=== PATIENT | male | born 1970 | race Caucasian/White ===

== ENCOUNTER 2016-10-31 08:47 | Observation (INO) | payer MEDICAID ==
[~2016-10-31] VITALS: Ht 172.7 cm; Wt 100.3 kg
[~2016-10-31 08:47] MED LIST: COLC0.6T53; HYDR-2890 PO; HYDROCODONE; INDO50CA; METF500T8 PO
[2016-10-31 08:50] VITALS: BP 147/108
--- OUTSIDE RECORDS SUMMARY | 2016-10-31 08:54 | XMS REPORT ---
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
--- NOTE | 2016-10-31 09:14 | ED Neurological Problem ---
General Chief Complaint: Neuro-Stroke Like Symptoms Stated Complaint: LEFT SIDE FACIAL NUMBNESS/DROOPING Nursing Triage Note: At 0300, noticed left facial weakness with nausea. Approx 0500 noticed facial drooping. Reports generalized weakness last 2 days. Nursing Sepsis Screen: No Definite Risk Source: patient Exam Limitations: no limitations History of Present Illness Time seen by provider: 08:55 Initial Comments Here with report of left facial weakness that he noticed at about 3 a.m. Last known well time was going to bed last night. States that the weakness was worse and noted increased drooping at 5 a.m. Also reports generalized malaise and not feeling well for the last 2-3 days. Patient is a diabetic. He did go to work this morning. Believes that he is having some weakness on his left side overall as well. Gait was steady without foot drop. Denies dysuria or diarrhea. Is reporting some upper respiratory congestion and nasal congestion. Timing/Duration: increasing, other (12 hours) Severity: moderate Associated Symptoms: No confusion, fatigueNo fever/chills, No nausea/vomiting , paresthesiaNo slurred speech, No trouble walking, weakness Allergies and Home Medications Allergies Coded Allergies: No Known Allergies (Unverified Allergy, Mild, 12/12/09) Home Medications (Reported) Colchicine 0.6 Mg Tablet (Reported) Hydrocodone Bit/Acetaminophen 1 Each Tablet #30 1 EACH PO Q4H Prescribed by: KYLEIGH PAINTING on 12/28/12 1550 Indomethacin 50 Mg Capsule (Reported) Metformin Hcl 500 Mg Tab.sr.24h 1 EACH PO BID WITH MEALS (Reported) Constitutional: see HPINo chills, No fever Eyes: No Symptoms Reported Ears, Nose, Mouth, Throat: see HPI nose discharge Respiratory: no symptoms reportedNo cough, No short of breath Cardiovascular: No chest pain, No palpitations Gastrointestinal: no symptoms reportedNo nausea, No vomiting Genitourinary: no symptoms reported Musculoskeletal: see HPI muscle weakness Skin: no symptoms reported Psychiatric/Neurological: See HPIDenies Headache, Numbness Weakness Endocrine: No Symptoms Reported All Other Systems Reviewed Negative Unless Noted: Yes Past Rdqhshi-Qbjrsv-Vwkcnr Hx Patient Social History Alcohol Use: Rarely Uses Recreational Drug Use: No Smoking Status: Never a Smoker Recent Foreign Travel: No Contact w/Someone Who Travel: No Recent Infectious Disease Expo: No Recent Hopitalizations: No Physical Abuse Screen: No Sexual Abuse: No Immunizations Up To Date Date of Influenza Vaccine: Jul 08, 2012 Surgeries HX Surgeries: Yes (club foot) Respiratory Hx Respiratory Disorders: No Cardiovascular Hx Cardiac Disorders: No Neurological Hx Neurological Disorders: No Genitourinary Hx Genitourinary Disorders: No Gastrointestinal Hx Gastrointestinal Disorders: No Musculoskeletal Hx Musculoskeletal Disorders: Yes Musculoskeletal Disorders: Gout Endocrine Hx Endocrine Disorders: Yes Endocrine Disorders: Diabetes, Non-Insulin dep Cancer Hx Cancer: No Psychosocial Hx Psychiatric Problems: Yes Behavioral Health Disorders: Depression Reviewed Nursing Assessment Reviewed/Agree w Nursing PMH: Yes Family Medical History Significant Family History: No Pertinent Family Hx Physical Exam Vital Signs Vital Sign - Last 12Hours 10/31/16 08:47 Pulse 86 Resp 16 B/P 147/108 Pulse Ox 98 Capillary Refill : Less Than 3 Seconds General Appearance: WD/WN no apparent distress Neck: full range of motion supple Respiratory: lungs clear normal breath sounds Cardiovascular: regular rate, rhythm no murmur Gastrointestinal: non tender soft Back: normal inspection no CVA tenderness no vertebral tenderness Extremities: normal range of motion non-tender normal inspection Neurologic/Psychiatric: alertNo abnormal gait, facial droop motor weakness ( left facial droop with forehead involvement) Crainal Nerves: PERRL facial asymmetry facial droop facial paresthesias facial weaknessNo tongue deviation to R, No tongue deviation to L Coordination/Gait: normal finger to nose normal gait Motor/Sensory: no pronator driftNo weak motor strength RUE, No weak motor strength LUE, No weak motor strength RLE, No weak motor strength LLE Skin: normal color warm/dry Stroke NIH Stroke Scale Assessment Level of Consciousness: 0=Alert Level of Consciousness-Questio: 0=Answers both month/age LOC Commands: 0=Performs both tasks Gaze: 0=Normal Visual You: 0=No visual loss Facial Movement (Facial Paresi: 1=Minor paralysis Motor Function-Arms Right: 0=No drift Motor Function-Arms Left: 0=No drift Motor Function-Legs Right: 0=No drift Motor Function-Legs Left: 0=No drift Limb Ataxia: 0=Absent Sensory: 1=Mild to Moderate loss Best Language: 0=No aphasia Extinction & Inattention: 0=No abnormality Progress/Results/Core Measures Results/Orders Lab Results Laboratory Tests Test 10/31/16 09:15 10/31/16 11:25 Range/Units Activated Partial Thromboplast Time 26 24-35 SEC Alanine Aminotransferase (ALT/SGPT) 32 0-55 U/L Albumin 3.8 3.2-4.5 G/DL Alkaline Phosphatase 83 40-136 U/L Anion Gap 11 5-14 MMOL/L Aspartate Amino Transf (AST/SGOT) 24 5-34 U/L BUN/Creatinine Ratio 15 Basophils # (Auto) 0.0 0.0-0.1 10^3/uL Basophils (%) (Auto) 0 0-10 % Blood Urea Nitrogen 18 7-18 MG/DL Calcium Level 9.3 8.5-10.1 MG/DL Carbon Dioxide Level 22 21-32 MMOL/L Chloride Level 101 98-107 MMOL/L Creatinine 1.23 0.60-1.30 MG/DL D-Dimer 0.45 0.00-0.49 UG/ML Eosinophils # (Auto) 0.1 0.0-0.3 10^3/uL Eosinophils (%) (Auto) 1 0-10 % Estimat Glomerular Filtration Rate > 60 Glucose Level 301 H 70-105 MG/DL Hematocrit 48 40-54 % Hemoglobin 16.6 13.3-17.7 G/DL INR Comment 0.9 0.8-1.4 Lymphocytes # (Auto) 1.9 1.0-4.0 X 10^3 Lymphocytes (%) (Auto) 20 12-44 % Mean Corpuscular Hemoglobin 30 25-34 PG Mean Corpuscular Hemoglobin Concent 35 32-36 G/DL Mean Corpuscular Volume 85 80-99 FL Mean Platelet Volume 9.9 7.4-10.4 FL Monocytes # (Auto) 0.4 0.0-1.0 X 10^3 Monocytes (%) (Auto) 5 0-12 % Neutrophils # (Auto) 6.9 1.8-7.8 X 10^3 Neutrophils (%) (Auto) 74 42-75 % Platelet Count 232 130-400 10^3/uL Potassium Level 4.5 3.6-5.0 MMOL/L Prothrombin Time 11.7 L 12.2-14.7 SEC Red Blood Count 5.56 4.35-5.85 10^6/uL Red Cell Distribution Width 13.8 10.0-14.5 % Sodium Level 134 L 135-145 MMOL/L Total Bilirubin 0.3 0.1-1.0 MG/DL Total Protein 7.0 6.4-8.2 G/DL Troponin I < 0.30 <0.30 NG/ML White Blood Count 9.3 4.3-11.0 10^3/uL Urine Bacteria NEGATIVE /HPF Urine Bilirubin NEGATIVE NEGATIVE Urine Casts NONE /LPF Urine Clarity CLEAR Urine Color YELLOW Urine Crystals NONE /LPF Urine Culture Indicated NO Urine Glucose (UA) 3+ H NEGATIVE Urine Ketones NEGATIVE NEGATIVE Urine Leukocyte Esterase NEGATIVE NEGATIVE Urine Mucus NEGATIVE /LPF Urine Nitrite NEGATIVE NEGATIVE Urine Protein 2+ H NEGATIVE Urine RBC NONE /HPF Urine RBC (Auto) NEGATIVE NEGATIVE Urine Specific Amelia 1.010 L 1.016-1.022 Urine Squamous Epithelial Cells RARE /HPF Urine Urobilinogen NORMAL NORMAL MG/DL Urine WBC NONE /HPF Urine pH 6 5-9 My Orders Orders-LM HARPER MD Cbc With Automated Diff (10/31/16 09:02) Protime With Inr (10/31/16 09:02) Partial Thromboplastin Time (10/31/16 09:02) Comprehensive Metabolic Panel (10/31/16 09:02) Fibrin Degradation Products (10/31/16 09:02) Troponin I (10/31/16 09:02) Ua Culture If Indicated (10/31/16 09:02) Chest 1 View, Ap/Pa Only (10/31/16 09:02) Ekg Tracing (10/31/16 09:02) Nothing By Mouth (10/31/16 Lunch) Accucheck Stat ONCE (10/31/16 09:02) Saline Lock/Iv-Start (10/31/16 09:02) Vital Signs-Stroke Q1H (10/31/16 09:02) Ct Head Wo-R/O Stroke (10/31/16 09:02) O2 (10/31/16 09:02) Intake & Output 06,14,22 (10/31/16 09:02) Monitor-Rhythm Ecg Trace Only (10/31/16 09:02) Dysphagia Screening Tool (10/31/16 09:02) Saline Lock/Iv-Start (10/31/16 11:55) Ns Iv 1000 Ml (Sodium Chloride 0.9%) (10/31/16 11:55) Vital Signs/I&O Vital Sign - Last 12Hours 10/31/16 08:47 Pulse 86 Resp 16 B/P 147/108 Pulse Ox 98 Blood Pressure Mean: 121 Progress Note : Progress Note Seen and evaluated. Stroke scale positive for facial droop and paresthesias on the left face total score of 2. Otherwise negative. IV, labs, CT head and UA ordered. Monitor patient. 1150: Facial droop on left side has resolved. Patient is complaining of some moving symptoms including some right arm numbness now. Repeat stroke scale is 0 by me. There is no facial droop or forehead droop. I did discuss the case with Dr. Soares at 1150. She will except patient for admission, observation status. We will get MRI and ultrasound of the carotids for further evaluation due to what appears to be TIA now. This was discussed with patient who agrees with plan. ECG Initial ECG Impression Date: Oct 31, 2016 Initial ECG Impression Time: 09:59 Initial ECG Rate: 72 Initial ECG Rhythm: Normal Sinus Initial ECG Impression: Normal Initial ECG Comparisson: No Previous ECG Available Comment Sinus rhythm with normal axis. No evidence of ST elevation TX. No previous available for comparison. Interpreted by me. Diagnostic Imaging Diagonstic Imaging: CT Plain Films/CT/US/NM/MRI: head Comments VIA [facility] [place] NAME: SAI FINCH [facility] REC#: [id number] PT STATUS: REG ER : 1970 PHYSICIAN: LM HARPER MD ADMIT DATE: 10/31/16/ER Draft Date of Exam:10/31/16 CT HEAD WO-R/O STROKE CT head without contrast. INDICATION: CVA. TECHNIQUE: Contiguous axial sections were taken through the skull. There are no prior studies available for comparison. FINDINGS: There is no mass, shift of midline or hemorrhage to suggest an acute intracranial abnormality. There is no sign of an asymmetric hyperdense vessel either. The ventricles are not abnormally dilated. The bone windows show no evidence for fracture or for destructive lesion. The orbits and sinuses were not visualized in their entirety but where visualized there is no acute abnormality. IMPRESSION: 1. There is no evidence for an acute intracranial abnormality. 2. If clinical concern regarding an underlying abnormality persists, then MRI would be recommended for further study. 3. These results were discussed with Dr. Harper in the ER. Dictated on workstation # [id number] Dict: 10/31/16 0941 Trans: 10/31/16 1005 [id number] Interpreted by: LEROY ANDREA MD Electronically signed by: Robert Imaging: Xray Plain Films/CT/US/NM/MRI: chest Comments VIA [facility] [place] NAME: SAI FINCH [facility] REC#: [id number] PT STATUS: REG ER : 1970 PHYSICIAN: LM HARPER MD ADMIT DATE: 10/31/16/ER Draft Date of Exam:10/31/16 CHEST 1 VIEW, AP/PA ONLY EXAMINATION: PA chest at 9:46 AM INDICATION: Weakness There are no prior chest exams available for comparison. The heart size is within normal limits. The lungs are clear. There is no sign of failure, pneumonia or a pleural effusion. There are small areas of increased density overlying each upper lung. I suspect that these are secondary to bony overgrowth as they appear similar to the thoracic spine exam of 04/03/08. The mediastinum is not widened. The osseous structures are intact. IMPRESSION: There is no evidence for an acute cardiopulmonary abnormality. Dictated on workstation # [id number] Dict: 10/31/16 1009 Trans: 10/31/16 1019 [place] [id number] Interpreted by: LEROY ANDREA MD Electronically signed by: Departure Communication Time/Spoke to Admitting Phy: 11:50 Impression Impression: Primary Impression: Transient cerebral ischemia Qualified Code: G45.9 - Transient cerebral ischemic attack, unspecified Disposition: ADMITTED INPATIENT Condition: Stable Decision to Admit Reason: Admit from ER (General) Decision to Admit/Date: Oct 31, 2016 Time/Decision to Admit Time: 11:50 Departure-Patient Inst. Referrals: [facility] (PCP/Family) Primary Care Physician LM HARPER MD Oct 31, 2016 09:14
[2016-10-31 09:23] LABS: BASOPHILS % (AUTO) 0 % (0-10); EOSINOPHILS # (AUTO) 0.1 10^3/uL (0.0-0.3); EOSINOPHILS % (AUTO) 1 % (0-10); LYMPHOCYTES # (AUTO) 1.9 X 10^3 (1.0-4.0); LYMPHOCYTES % (AUTO) 20 % (12-44); MEAN CORPUSCULAR HEMOGLOBIN 30 PG (25-34); MEAN CORPUSCULAR HGB CONC 35 G/DL (32-36); MEAN CORPUSCULAR VOLUME 85 FL (80-99); MEAN PLATELET VOLUME 9.9 FL (7.4-10.4); MONOCYTES # (AUTO) 0.4 X 10^3 (0.0-1.0); MONOCYTES % (AUTO) 5 % (0-12); NEUTROPHILS # (AUTO) 6.9 X 10^3 (1.8-7.8); NEUTROPHILS % (AUTO) 74 % (42-75); PLATELET COUNT 232 10^3/uL (130-400); RED BLOOD COUNT 5.56 10^6/uL (4.35-5.85); RED CELL DISTRIBUTION WIDTH 13.8 % (10.0-14.5); WHITE BLOOD COUNT 9.3 10^3/uL (4.3-11.0)
[2016-10-31 09:37] LABS: INR 0.9 (0.8-1.4); PROTHROMBIN TIME PATIENT 11.7 SEC (12.2-14.7)
--- NOTE | 2016-10-31 10:05 | Diagnostic Imaging Report ---
CT head without contrast. INDICATION: CVA. TECHNIQUE: Contiguous axial sections were taken through the skull. There are no prior studies available for comparison. FINDINGS: There is no mass, shift of midline or hemorrhage to suggest an acute intracranial abnormality. There is no sign of an asymmetric hyperdense vessel either. The ventricles are not abnormally dilated. The bone windows show no evidence for fracture or for destructive lesion. The orbits and sinuses were not visualized in their entirety but where visualized there is no acute abnormality. IMPRESSION: 1. There is no evidence for an acute intracranial abnormality. 2. If clinical concern regarding an underlying abnormality persists, then MRI would be recommended for further study. 3. These results were discussed with Dr. Lugo in the ER. Dictated by: Dictated on workstation # [id number]
[2016-10-31 10:06] LABS: ALANINE AMINOTRANSFERASE 32 U/L (0-55); ALBUMIN 3.8 G/DL (3.2-4.5); ANION GAP 11 MMOL/L (5-14); ASPARTATE AMINO TRANSFERASE 24 U/L (5-34); BILIRUBIN,TOTAL 0.3 MG/DL (0.1-1.0); BLOOD UREA NITROGEN 18 MG/DL (7-18); BUN/CREATININE RATIO 15; CALCIUM 9.3 MG/DL (8.5-10.1); CARBON DIOXIDE 22 MMOL/L (21-32); CHLORIDE 101 MMOL/L (98-107); CREATININE SERUM 1.23 MG/DL (0.60-1.30); GFR ESTIMATED > 60; GLUCOSE 301 MG/DL (70-105); POTASSIUM 4.5 MMOL/L (3.6-5.0); SODIUM 134 MMOL/L (135-145)
[2016-10-31 10:16] LABS: TROPONIN I < 0.30 NG/ML (<0.30)
--- NOTE | 2016-10-31 10:20 | Diagnostic Imaging Report ---
EXAMINATION: PA chest at 9:46 AM INDICATION: Weakness There are no prior chest exams available for comparison. The heart size is within normal limits. The lungs are clear. There is no sign of failure, pneumonia or a pleural effusion. There are small areas of increased density overlying each upper lung. I suspect that these are secondary to bony overgrowth as they appear similar to the thoracic spine exam of 04/03/08. The mediastinum is not widened. The osseous structures are intact. IMPRESSION: There is no evidence for an acute cardiopulmonary abnormality. Dictated by: Dictated on workstation # [id number]
[2016-10-31 11:40] LABS: BILIRUBIN,URINE NEGATIVE (NEGATIVE); KETONES,URINE NEGATIVE (NEGATIVE); LEUKOCYTE ESTERASE ,URINE NEGATIVE (NEGATIVE); NITRITE,URINE NEGATIVE (NEGATIVE); PH,URINE 6 (5-9); PROTEIN,URINE 2+ (NEGATIVE); UROBILINOGEN,URINE NORMAL (NORMAL)
[2016-10-31 11:50] LABS: SQUAMOUS EPITHELIAL CELL,UR RARE /HPF
[2016-10-31] MEDS ORDERED: NS IV 1000 ML 1,000 ML IV ONE (11:55)
[2016-10-31] MEDS ORDERED: ACETAMINOPHEN 325 MG TABLET/CAPLET (TYLENOL) PO STA (12:00)
[2016-10-31] MEDS ORDERED: ASPIRIN 325 MG (5 GR) TABLET PO ONE (12:30)
[2016-10-31 13:15] VITALS: BP 165/84
[2016-10-31] MEDS: NS IV 1000 ML 1,000 ML IV SCH ×2 (13:45→18:03)
[2016-10-31] MEDS ORDERED: CATHETER FLUSH 10 ML SYR IV PRN (13:45)
--- NOTE | 2016-10-31 14:47 | Diagnostic Imaging Report ---
PROCEDURE: US Carotid Duplex Bilateral. TECHNIQUE: Multiple real-time grayscale images were obtained over the carotid arteries in various projections bilaterally. Additional duplex Doppler and color Doppler images were also obtained. INDICATION: TIA. FINDINGS: Real-time imaging shows no evidence of atherosclerotic plaquing. There is no evidence of carotid dissection with normal Doppler sampling. Waveforms and peak velocities are normal. Carotid ratios are normal. Both vertebral arteries show antegrade flow. IMPRESSION: Normal bilateral carotid and vertebral Doppler ultrasound. Dictated by: Dictated on workstation # [id number]
[2016-10-31] MEDS ORDERED: INDO50CA PO (14:49)
[2016-10-31] MEDS ORDERED: INSU100I29 SC (14:49)
[2016-10-31] MEDS ORDERED: HYDR-3812 PO (14:49)
[2016-10-31] MEDS ORDERED: TERB15CR6 TOP (14:49)
[2016-10-31] MEDS ORDERED: GABA-486 PO (14:49)
[2016-10-31] MEDS ORDERED: LORA0.5T PO (14:49)
[2016-10-31] MEDS ORDERED: ALLO100T PO (14:49)
[2016-10-31 16:37] VITALS: BP 113/72
[2016-10-31] MEDS ORDERED: GADOBUTROL 10 MMOL/10 ML (GADAVIST) VIAL IV ONE (17:30)
[2016-10-31] MEDS: inSUlin (REGULAR) HUMAN 1 UNIT/0.01 ML (CHARGE PER UNIT) SC SCH ×2 (18:03→20:39)
--- NOTE | 2016-10-31 18:13 | Diagnostic Imaging Report ---
PROCEDURE: MR imaging of the brain with and without contrast. TECHNIQUE: Multiplanar, multisequence MR imaging of the brain was performed with and without contrast. INDICATION: TIA. COMPARISON: CT of the head from the same date. FINDINGS: No evidence for restricted diffusion to suggest recent infarction. No intracranial hemorrhage. The right vertebral artery likely terminates in PICA. Otherwise, vascular flow-voids at the skull base were unremarkable. The orbits are unremarkable. The paranasal sinuses are clear. No abnormal signal identified within the brain parenchyma. No intracranial mass, mass effect, midline shift, herniation, hydrocephalus, or extra-axial fluid collection. No suspicious dural enhancement. The calvarium and extracalvarial soft tissues are unremarkable. IMPRESSION: Unremarkable examination. No acute intracranial abnormality identified. Dictated by: Dictated on workstation # [id number]
[2016-10-31 20:48] VITALS: BP 135/88
[2016-11-01] VITALS: BP 134/84
[2016-11-01 04:00] VITALS: BP 100/59
[2016-11-01 04:40] LABS: BASOPHILS % (AUTO) 0 % (0-10); EOSINOPHILS # (AUTO) 0.2 10^3/uL (0.0-0.3); EOSINOPHILS % (AUTO) 2 % (0-10); LYMPHOCYTES # (AUTO) 3.2 X 10^3 (1.0-4.0); LYMPHOCYTES % (AUTO) 34 % (12-44); MEAN CORPUSCULAR HEMOGLOBIN 30 PG (25-34); MEAN CORPUSCULAR HGB CONC 34 G/DL (32-36); MEAN CORPUSCULAR VOLUME 86 FL (80-99); MEAN PLATELET VOLUME 9.8 FL (7.4-10.4); MONOCYTES # (AUTO) 0.6 X 10^3 (0.0-1.0); MONOCYTES % (AUTO) 6 % (0-12); NEUTROPHILS # (AUTO) 5.5 X 10^3 (1.8-7.8); NEUTROPHILS % (AUTO) 58 % (42-75); PLATELET COUNT 239 10^3/uL (130-400); RED BLOOD COUNT 5.48 10^6/uL (4.35-5.85); WHITE BLOOD COUNT 9.5 10^3/uL (4.3-11.0)
[2016-11-01 04:59] LABS: ALANINE AMINOTRANSFERASE 27 U/L (0-55); ALBUMIN 3.5 G/DL (3.2-4.5); ANION GAP 8 MMOL/L (5-14); ASPARTATE AMINO TRANSFERASE 19 U/L (5-34); BILIRUBIN,TOTAL 0.5 MG/DL (0.1-1.0); BLOOD UREA NITROGEN 16 MG/DL (7-18); BUN/CREATININE RATIO 15; CALCIUM 8.9 MG/DL (8.5-10.1); CARBON DIOXIDE 22 MMOL/L (21-32); CHLORIDE 108 MMOL/L (98-107); CREATININE SERUM 1.06 MG/DL (0.60-1.30); GFR ESTIMATED > 60; GLUCOSE 125 MG/DL (70-105); POTASSIUM 4.5 MMOL/L (3.6-5.0); SODIUM 138 MMOL/L (135-145); TOTAL PROTEIN 6.2 G/DL (6.4-8.2)
[2016-11-01] MEDS: inSUlin (REGULAR) HUMAN 1 UNIT/0.01 ML (CHARGE PER UNIT) SC SCH ×2 (05:14→09:48)
[2016-11-01 08:00] VITALS: BP 117/64
[2016-11-01] MEDS: NS IV 1000 ML 1,000 ML IV SCH (08:34)
[2016-11-01] MEDS ORDERED: INSU100V16 SQ (12:44)
[2016-11-01] MEDS ORDERED: ASPI-999 PO (12:44)
[2016-11-01 12:45] VITALS: BP 121/62
--- NOTE | 2016-11-01 12:46 | Discharge Instructions ---
Discharge [facility] Discharge Medications New, Converted or Re-Newed RX: Transmitted to Pharmacy ([facility]; can get Aspirin over the counter) New Medications: Aspirin (Aspirin) 81 Mg Tab.chew 81 MG PO DAILY #30 Ref 0 TAB Insulin Aspart (Novolog) 100 Unit/1 Ml Susp 10 UNIT SQ TIDWM #1 Ref 0 ML Continued Medications: Allopurinol (Allopurinol) 100 Mg Tablet 100 MG PO TID TAB Gabapentin (Gabapentin) 100 Mg Capsule 100 MG PO TID LAST FILLED #90 09-01-16 CAP Hydrocodone/Acetaminophen (Hydrocodon -Acetaminophen 5-325) 1 Each Tablet 1 TAB PO Q6H PRN GOUT PAIN TAB Indomethacin (Indomethacin) 50 Mg Capsule 50 MG PO TID PRN GOUT PAIN TAB Insulin Detemir (Levemir Flextouch) 100 Unit/1 Ml Insuln.pen 45 UNITS SC BID EA Lorazepam (Lorazepam) 0.5 Mg Tablet 0.5 MG PO BID PRN ANXIETY TAB Terbinafine HCl (Terbinafine) 15 Gm Cream..g. TOP BID PRN RASH EA Patient Instructions Goal/Follow Up Appt: Keep scheduled appointment with Conner Bejarano APRN on 11/13/16 Patient Instructions: Start Novolog insulin 10 units with meals; check blood sugars fasting and 2 hours after meals. May get Aspirin 81mg daily over the counter Activity & Diet Discharge Diet: ADA Diet Orders-Post D/C & Referrals Pneu Vac Indicated: Yes DOROTA STEWART DO Nov 01, 2016 12:46
--- NOTE | 2016-11-01 12:48 | Short Stay Summary ---
HPI History of Present Illness: Pt presented to ER with L facial drooping, including the forehead. Symptoms resolved completely while in the ER. Pt was admitted for observation due to the rapid resolution of symptoms which was not typical for Angelo's Palsy. 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 States he has had recurrence of facial drooping especially with fatigue and stress which pt admits to having more of recently. Denies any symptoms currently. Source: patient Exam Limitations: no limitations Attending Physician Dorota Stewart DO PCP Ankit,[facility] Date of Admission Oct 31, 2016 at 12:08 Home Medications Home Medications Reviewed patient Home Medication Reconciliation Form Allergies Coded Allergies: NKANo Known Allergies (Verified Allergy, Mild, 10/31/16) BIK-Wamgcn-Zwsnyy Hx Patient Social History Alcohol Use: Denies Use Recreational Drug Use: No Smoking Status: Former Smoker Type Used: Cigarettes Recent Foreign Travel: No Contact w/other who traveled: No Recent Hopitalizations: No Recent Infectious Disease Expo: No Physical Abuse Screen: No Sexual Abuse: No Immunizations Up To Date Date of Influenza Vaccine: Jul 05, 2016 Family Medical History Significant Family History: No Pertinent Family Hx Family History: Diabetes mellitus grandfather Hypertension 19 FATHER Review of Systems ([facility]) Constitutional: see HPI Physical Exam-([facility]) Physical Exam Vital Signs VS - Last 72 Hours, by Label 10/31/16 10/31/16 10/31/16 10/31/16 08:47 08:50 12:51 13:15 Temp 97.5 98.7 Pulse 86 86 82 72 Resp 16 16 16 16 B/P 147/108 147/108 165/84 Pulse Ox 98 98 98 96 O2 Delivery Room Air 10/31/16 10/31/16 11/01/16 11/01/16 16:37 20:48 00:00 04:00 Temp 97.6 97.8 96.4 95.9 Pulse 71 78 83 62 Resp 18 18 17 18 B/P 113/72 135/88 134/84 100/59 Pulse Ox 95 95 97 100 O2 Delivery Room Air Room Air Room Air Room Air 11/01/16 11/01/16 08:00 09:00 Temp 98.3 Pulse 91 Resp 20 B/P 117/64 Pulse Ox 97 96 O2 Delivery Room Air Room Air Capillary Refill : Less Than 3 Seconds General Appearance: WD/WN no apparent distress HEENT: PERRL/EOMI Neck: full range of motion Respiratory: lungs clear normal breath sounds no respiratory distress Cardiovascular: regular rate, rhythm Neurologic/Psychiatric: economic analysis director II-XII nml as tested no motor/sensory deficits alert normal mood/affect oriented x 3 facial droop (mild droop at rest; full active motion) Skin: normal color warm/dry Short Stay Diagnosis Discharge Diagnosis-Short Stay Admission Diagnosis 1. Facial droop consistent with Angelo's Palsy Final Discharge Diagnosis 1. Facial droop consistent with Angelo's Palsy -resolved in the ER -likely recurrence of prior Angelo's Palsy secondary to stress - normal CT and MRI brain; normal carotid doppler - will f/u with PCP Conclusion Plan see above Clinical Quality Measures DVT/VTE Risk/Contraindication: Risk Factor Score Per Nursin RFS Level Per Nursing on Admit: 1=Low/No VTE PPX Stroke: Date of last known well: Oct 31, 2016 DOROTA STEWART DO Nov 01, 2016 12:48
[2016-11-01 14:21] VITALS: BP 121/62
== END 2016-11-01 12:44 | disposition home or self-care (01) ==
LOC: EDUNIT# 08:47 → ER 08:49 → 4TH 12:08 → UNDOADMOB 12:08 → 4TH 13:15 → UNDODISOB 11-01 14:26
PROVIDERS: ADMIT Family Medicine; ATTEND Family Medicine
DX: G45.9 Transient cerebral ischemic attack, unspecified (principal); E11.9 Type 2 diabetes mellitus without complications; Z79.84 Long term (current) use of oral hypoglycemic drugs
CPT/HCPCS: 36415; 70450; 70553; 71010; 80053; 81000; 82962; 84484; 85025; 85379; 85610; 85730; 93005; 93041; 93880; 96360; G0378

== ENCOUNTER 2018-08-12 11:18 | Emergency (ER) | payer OTHER, MEDICAID ==
[~2018-08-12] VITALS: Ht 172.7 cm; Wt 102.1 kg
[~2018-08-12 11:18] MED LIST changes: +ACHD5005 PO; +ALLO100T PO; +ASPI-999 PO; +GABA-486 PO; +INDO50CA11 PO; +INSU100I29 SC; +INSU100V16 SQ; +LORA0.5T PO; +TERB15CR6 TOP
--- OUTSIDE RECORDS SUMMARY | 2018-08-12 11:24 | XMS REPORT ---
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 Name Role Phone SUNNY YODER Unavailable Unavailable PROBLEMS Type Condition ICD9-CM Code ZDB21-QP Code Onset Dates Condition Status SNOMED Code Problem Hypertension, benign I10 Active 11848725 Problem Type 2 diabetes mellitus with hyperglycemia E11.65 Active 698986035804076 Problem Diabetes type 2, uncontrolled E11.65 Active 277563960 Problem Primary insomnia F51.01 Active 358281684 Problem Mood disorder F39 Active 73098077 Problem Diabetes type 2, controlled E11.9 Active 92044157 Problem Chronic fatigue R53.82 Active 52410994 Problem Primary osteoarthritis involving multiple joints M15.0 Active 724520771 Problem assisted current use of insulin Z79.4 Active 951296235 Problem Type 2 diabetes mellitus with diabetic polyneuropathy E11.42 Active 20446391 Problem 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 Active 329902257 Problem Type 2 diabetes mellitus without complications E11.9 Active 153438504 ALLERGIES Substance Reaction Event Type Date Status MetFORMIN HCl ER diarrhea Drug Allergy Jun, Active GlipiZIDE low blood sugar Drug Allergy Jun, Active ENCOUNTERS Encounter Location Date Diagnosis [facility] [id number] [place] [address]97 -6121 Jun, Cough R05 ; Diarrhea, unspecified type R19.7 and Congestion of respiratory tract J98.8 [facility] [id number] [place] [address] 57523- 3420 May, Type 2 diabetes mellitus with diabetic polyneuropathy E11.42 [facility] [id number] [place] [address] 39883- 7137 May, Type 2 diabetes mellitus with diabetic polyneuropathy E11.42 and Chronic fatigue R53.82 [facility] [id number] [address] February, [facility] [address], [place] [address] 0065 Jan, [facility] [id number] [place] [address] 85527- 2429 Nov, Controlled type 2 diabetes mellitus without complication, without long-term current use of insulin E11.9 [facility] [address] [address] 8927 Nov, [facility] [id number] [place] [address] 30904- 7372 Oct, [facility] [id number] [place] [address] 79659- 8665 Oct, Type 2 diabetes mellitus with diabetic polyneuropathy E11.42 and Primary osteoarthritis involving multiple joints M15.0 [facility] [id number] [place] [address] 15450- 3136 Oct, Type 2 diabetes mellitus with diabetic polyneuropathy E11.42 ; Primary osteoarthritis involving multiple joints M15.0 and Viral upper respiratory tract infection J06.9 [facility] [address] [address] 2[address] Sep, Diabetes type 2, controlled E11.9 [facility] [address], [place] [address] 1208 Jun, Uncontrolled diabetes mellitus type 2 without complications , 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 [facility] [address] [address] 6[address] Jun, Bronchitis J40 [facility] [id number] [place] [address] 71937- 9111 May, Controlled type 2 diabetes mellitus without complication, without long-term current use of insulin E11.9 [facility] [address] [address] 48[address] 24 Anatoliy, 2017 Type 2 diabetes mellitus without complications E11.9 [facility] [address] [address] 3337 Apr, [facility] [id number] [place] [address] 95029- 7756 Jan, Controlled type 2 diabetes mellitus without complication, without long-term current use of insulin E11.9 [facility] [id number] [place] [address] 99453- 5179 Dec, Diabetes type 2, controlled E11.9 and Type 2 diabetes mellitus with diabetic polyneuropathy E11.42 [facility] [id number] [place] [address] 34690- 2879 Nov, Diabetes type 2, controlled E11.9 and 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 [facility] [id number] [place] [address] 30218- 8401 Oct, [facility] [id number] [place] [address] 16733- 4431 Oct, Diabetes type 2, controlled E11.9 [facility] [id number] [place] [address] 96710- 7690 Sep, Diabetes type 2, controlled E11.9 [facility] [address], [place] [address] Aug, Bronchitis J40 [facility] [id number] [place] [address] 03526- 5333 Aug, [facility] [id number] [place] [address] 86996- 0790 Jul, Upper respiratory tract infection, unspecified type J06.9 ; Type 2 diabetes mellitus without complications E11.9 and assisted current use of insulin Z79.4 [facility] [address], [place] [address]- 0619 Jul, [facility] [id number] [place] [address] 00558- 6020 15 Sep, 2016 Type 2 diabetes mellitus with diabetic polyneuropathy E11.42 ; Type 2 diabetes mellitus with hyperglycemia E11.65 and Encounter for immunization Z23 [facility] [id number] [place] [address] 90958- 9070 May, Controlled type 2 diabetes mellitus without complication, without long-term current use of insulin E11.9 [facility] [id number] [place] [address] 73419- 6810 Apr, Diabetes type 2, uncontrolled E11.65 [facility] [id number] [place] [address] 51069- 0232 Mar, [facility] [id number] [place] [address] 57879- 6508 Mar, Controlled type 2 diabetes mellitus without complication, without long-term current use of insulin E11.9 [facility] [id number] [place] [address] 89551- 8367 February, Diabetes type 2, controlled E11.9 [facility] [id number] [place] [address] 12354- 6782 February, Uncontrolled diabetes mellitus type 2 without complications , unspecified penitentiary insulin use status E11.65 and Chest pain, unspecified type R07.9 [facility] [id number] [place] [address] 74583- 7706 February, Diabetes type 2, uncontrolled E11.65 [facility] [id number] [place] [address] 88301- 9533 Jan, [facility] [id number] [place] [address] 16915- 6773 Jan, Coughing R05 ; Tinea versicolor B36.0 and Diabetes type 2, uncontrolled E11.65 [facility] [address] [address]- 3250 Dec, Cough R05 [facility] [id number] [place] [address] 54799- 0865 Nov, [facility] [id number] [place] [address] 97121- 2993 Oct, Unspecified mood [affective] disorder F39 [facility] [id number] [place] [address] 51225- 1832 Oct, Cough R05 and Diabetes type 2, controlled E11.9 [facility] [address] 72924- 4226 Oct, Cough R05 [facility] [address] 85733- 7132 Oct, Abdominal pain R10.9 ; Cough R05 ; PND (post-nasal drip) R09.82 and GERD (gastroesophageal reflux disease) K21.9 [facility] [id number] [place] [address] 14072- 9603 Sep, Unspecified mood [affective] disorder F39 [facility] [address] 94270- 8170 Aug, [facility] [id number] [place] [address] 30793- 2475 Aug, [facility] [id number] [place] [address] 64178- 6996 Aug, [facility] [id number] [place] [address] 33619- 1788 Aug, [facility] [id number] [place] [address] 90804- 8159 Aug, Unspecified mood [affective] disorder F39 [facility] [id number] [place] [address] 61133- 4320 Aug, [facility] [id number] [place] [address] 83507- 4826 Aug, [facility] [id number] [place] [address] 43336- 0728 Jul, Tooth abscess K04.7 [facility] [address], [place] [address]- 8847 14 Jul, 2015 Diabetes type 2, controlled E11.9 [facility] [address], [place] [address]- 5940 14 Jul, 2015 [facility] [id number] [place] [address] 10468- 7688 08 Jul, 2015 [facility] [id number] [place] [address] 74718- 2559 30 Jun, 2015 [facility] [id number] [place] [address] 84324- 2668 30 Jun, 2015 Diabetes type 2, controlled 250.00 [facility] [id number] [place] [address] 34813- 4055 17 Jun, 2015 [facility] [id number] [place] [address] 94797- 0767 15 Jun, 2015 Affective disorder 296.90 [facility] [address], [place] [address]- 0323 Jun, [facility] [id number] [place] [address] 10958- 3070 May, Affective disorder 296.90 [facility] [address], [place] [address]- 0747 May, Diabetes mellitus 250.00 [facility] [id number] [place] [address] 44309- 4504 Apr, Episodic mood disorder 296.90 [facility] [address], [place] [address]- 6034 Mar, Episodic mood disorder 296.90 [facility] [address] 3253 February, Unspecified episodic mood disorder 296.90 [facility] [address], [place] [address]- 6050 Jan, [facility] [place] [facility] [address] [id number] [place] [address]- 9742 Jan, [facility] [place] [facility] [address] [id number] [place] [address]- 4165 Dec, [facility] [place] [facility] [address] [id number] [place] [address]- 6306 Dec, [facility] [place] [facility] [address] [id number] [place] [address]- 2630 Dec, [facility] [place] [facility] [address] [id number] [place] [address]- 9063 Dec, [facility] [place] [facility] [address] [id number] [place] [address]- 4092 Dec, [facility] [place] [facility] [address] [id number] [place] [address]- 1025 Dec, [facility] [place] [facility] [address] [id number] [place] [address]- 9458 Dec, [facility] [place] [facility] [address] [id number] [place] [address]- 9239 Dec, [facility] [place] [facility] [address] [id number] [place] [address]- 2842 Nov, 2014 [facility] [place] [facility] [address] [id number] [place] [address]- 9763 Nov, 2014 [facility] [place] [facility] [address] [id number] [place] [address]- 1187 Nov, 2014 [facility] [place] [facility] [address] [id number] [place] [address]- 8189 Nov, 2014 [facility] [place] [facility] [address] [id number] [place] [address]- 6839 Nov, 2014 [facility] [place] [facility] [address] [id number] [place] [address]- 6205 Nov, 2014 [facility] [place] [facility] [address] [id number] [place] [address]- 9042 Oct, [facility] [address] [id number] [place] [address]- 6163 Oct, [facility] [place] [facility] [address] [id number] [place] [address]- 5500 Oct, [facility] [place] [facility] [address] [id number] [place] [address]- 8205 Oct, [facility] [place] [facility] [address] [id number] [place] [address]- 2031 Oct, [facility] [place] [facility] [address] [id number] [place] [address]- 4781 Oct, [facility] [place] [facility] [address] [id number] [place] [address]- 9035 Oct, [facility] [place] [facility] [address] [id number] [place] [address]- 2479 Oct, [facility] [place] [facility] [address] [id number] [place] [address]- 7591 Oct, [facility] [place] [facility] [address] [id number] [place] [address]- 5428 Oct, [facility] [place] [facility] [address] [id number] [place] [address]- 4727 Oct, [facility] [place] [facility] [address] [id number] [place] [address]- 2764 Oct, [facility] [place] [facility] [address] [id number], [place] [address]- 6482 Oct, [facility] [place] [facility] [address] [id number], [place] [address]- 9282 Oct, [facility] [place] [facility] [address] [id number] [place] [address]- 0136 Oct, [facility] [place] [facility] [address] [id number], [place] [address]- 1571 Oct, [facility] [place] [facility] [address] [id number] [place] [address]- 6708 07 Oct, 2014 [facility] [place] [facility] [address] [id number] [place] [address]- 9438 Oct, [facility] [place] [facility] [address] [id number] [place] 0906 Sep, [facility] [place] [facility] [address] [id number] [place] [address]- 8203 Sep, [facility] [place] [facility] [address] [id number] [place] [address]- 8955 Sep, [facility] [place] [facility] [address] [id number] [place] [address]- 8277 Sep, [facility] [place] [facility] [address] [id number] [place] [address]- 6750 Sep, [facility] [place] [facility] [address] [id number] [place] [address]- 9455 Sep, [facility] [place] [facility] [address] [id number] [place] [address]- 0363 Aug, [facility] [place] [facility] [address] [id number] [place] [address]- 4870 Aug, [facility] [place] [facility] [address] [id number] [place] [address]- 3895 Aug, [facility] [place] [facility] [address] [id number] [place] [address]- 6009 Aug, [facility] [place] [facility] [address] [id number] [place] [address]- 1793 Jul, [facility] [place] [facility] [address] [id number] [place] [address]- 2387 Jul, [facility] [place] [facility] [address] [id number] [place]- 6347 Jul, [facility] [place] [facility] [address] [id number] [place] [address]- 4771 Jul, [facility] [place] [facility] [address] [id number] [place] [address]- 2878 Jul, [facility] [place] [facility] [address] [id number] [place] [address]- 2913 Jul, [facility] [place] [facility] [address] [id number] [place] [address]- 9587 Jul, [facility] [place] [facility] [address] [id number] [place] 9283 Jul, [facility] [place] [facility] [address] [id number] [place] [address]- 5007 May, [facility] [place] [facility] [address] [id number] [place] [address]- 4197 May, [facility] [place] [facility] [address] [id number] [place] [address]- 7563 Apr, [facility] [place] [facility] [address] [id number] [place] [address]- 6723 Apr, [facility] [place] [facility] [address] [id number] [place] [address]- 6824 Mar, [facility] [place] [facility] [address] [id number] [place] [address]- 3588 Mar, [facility] [place] [facility] [address] [id number], [place] [address]- 6179 Mar, [facility] [place] [facility] [address] [id number], [place] [address]- 4972 Mar, [facility] [place] [facility] [address] [id number] [place] [address]- 9828 Mar, [facility] [place] [facility] [address] [id number] [place] [address]- 7738 Mar, [facility] [place] [facility] [address] [id number] [place] [address]- 4473 Nov, [facility] [place] [facility] [address] [id number] [place] [address]- 0328 28 Nov, 2013 [facility] [address] [id number] [place] [address]- 2353 Jun, [facility] [address] [id number] [place] [address]- 2546 May, [facility] [address] [id number] [place] [address]- 2674 Apr, [facility] [address] [id number] [place] [address]- 2544 Apr, [facility] [address] [id number] [place] [address]- 1692 Mar, [facility] [address] [id number] [place] [address]- 8086 Mar, [facility] [address] [id number] [place] [address]- 0208 Mar, [facility] [address] [id number] [place] [address]- 7656 February, [facility] [address] [id number] [place] [address]- 4265 Dec, [facility] [address] [id number] [place] [address]- 9390 Nov, [facility] [address] [id number] [place] [address]- 0553 Oct, [facility] [address] [id number] [place] [address] 2549 Oct, [facility] [address] [id number] [place] [address]- 1943 14 Oct, 2012 [facility] [address] [id number] [place] [address]- 2546 Oct, [facility] [address] [id number] [place] 3068 Sep, [facility] [place] [facility] [address] [id number] [place] [address]- 2056 Sep, [facility] [place] [facility] [address] [id number] [place] [address]- 1175 Sep, [facility] [place] [facility] [address] [id number] [place] [address]- 2103 Sep, [facility] [place] [facility] [address] [id number] [place] [address]- 8889 Sep, [facility] [place] [facility] [address] [id number] [place] [address]- 7369 Sep, [facility] [place] [facility] [address] [id number] [place] [address]- 3588 Sep, [facility] [place] [facility] [address] [id number] [place] [address]- 1230 Sep, [facility] [place] [facility] [address] [id number] [place] [address]- 2983 Sep, [facility] [place] [facility] [address] [id number] [place] [address]- 8673 Sep, [facility] [place] [facility] [address] [facility] [id number], [place] [address]- 0309 Sep, [facility] [place] [facility] [address] [id number], [place] [address]- 3152 Aug, [facility] [place] [facility] [address] [id number], [place] [address]- 2595 Aug, [facility] [place] [facility] [address] [id number], [place] [address]- 2032 Aug, [facility] [place] [facility] [address] [id number], [place] [address]- 3440 Jul, [facility] [place] [facility] [address] [id number], [place]- 1106 Jul, [facility] [place] [facility] [address] [id number], [place] [address]- 2546 Dec, [facility] [address] [facility] [id number], [place] [address]- 2546 Aug, [facility] [address] [facility] [id number], [place] [address] Mar, IMMUNIZATIONS Vaccine Route Administration Date Status DEXAMETHASONE 4MG/ML (PER 1 MG) IM Intramuscular Jun 24, 2018 Administered DEPO MEDROL 40 MG/ML IM Intramuscular Jun 24, 2018 Administered SOCIAL HISTORY Never Assessed REASON FOR VISIT Diarrhea cough et congestion off et on for 2 months. [email or web address] PLAN OF CARE Activity Details Follow Up prn Reason: VITAL SIGNS Height 68 in 2018-06-24 Weight 228.6 lbs 2018-06-24 Temperature 98.1 degrees Fahrenheit 2018-06-24 Heart Rate 88 bpm 2018-06-24 Respiratory Rate 2018-06-24 BMI 34.75 kg/m2 2018-06-24 Blood pressure systolic 124 mmHg 2018-06-24 Blood pressure diastolic 76 mmHg 2018-06-24 MEDICATIONS Medication Instructions Dosage Frequency Start Date End Date Duration Status Blood Glucose Monitor one touch ultra test blood sugar Jun, Active Neurontin 300 MG Orally 3 times a day 1 capsule 8h 90 Active Levemir FlexTouch 100 UNIT/ML INJECT 45 UNITS SUBCUTANEOUSLY TWICE DAILY 31 Active BD Pen Needle Mini U/F 31G X 5 MM use with flexpen insulin May, Active Daniel Aspirin EC Low Dose 81 MG Orally Once a day 1 tablet 24h Active Allopurinol 100 MG TAKE ONE TABLET BY MOUTH THREE TIMES DAILY 90 Active Tessalon Perles 100 mg Orally TID PRN 1 capsule as needed Jun, Jun, 7 days Active Terbinafine HCl 1 % Externally Twice a day 1 application to affected area 12h Sep, Active NovoLog Flexpen 100 UNIT/ML INJECT 10 UNITS SUBCUTANEOUSLY THREE TIMES DAILY WITH MEALS 31 Active Meloxicam 15 mg Orally Once a day 1 tablet 24h 90 Active RESULTS No Results PROCEDURES Procedure Date Ordered Result Body Site DEPO MEDROL 40 MG/ML Jun 24, 2018 THER/PROPH/DIAG INJ, SC/IM Jun 24, 2018 DEXAMETHASONE 4MG/ML (PER 1 MG) Jun 24, 2018 INSTRUCTIONS MEDICATIONS ADMINISTERED No Known Medications MEDICAL (GENERAL) HISTORY Type Description Date Medical History type II diabetes Medical History Gout Medical History hyperlipidemia Medical History hyperthyroidism Medical History Arthritis Medical History asthma Medical History seizures as teenager Medical History hypertension Medical History insomnia Medical History anxiety Medical History hemorrhoids Medical History dysthymic disorder Surgical History club foot Hospitalization History surgery Hospitalization History gout Hospitalization History TIA at oct 2016
--- OUTSIDE RECORDS SUMMARY | 2018-08-12 11:25 | XMS REPORT ---
Author Author MARIA GRAHAM Organization [facility] Address [address] [place] [address] Care Team Providers Care [employer] Manager Name Role Phone GLADYS MARIA Unavailable PROBLEMS Type Condition ICD9-CM Code ZBE96-HE Code Onset Dates Condition Status SNOMED Code Problem Hypertension, benign I10 Active 13281026 Problem Type 2 diabetes mellitus with hyperglycemia E11.65 Active 878527752267618 Problem Diabetes type 2, uncontrolled E11.65 Active 052059531 Problem Primary insomnia F51.01 Active 393870009 Problem Mood disorder F39 Active 76478363 Problem Diabetes type 2, controlled E11.9 Active 44673146 Problem Chronic fatigue R53.82 Active 97435469 Problem Primary osteoarthritis involving multiple joints M15.0 Active 295076933 Problem intermediate current use of insulin Z79.4 Active 205174630 Problem Type 2 diabetes mellitus with diabetic polyneuropathy E11.42 Active 49298693 Problem 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 Active 387687682 Problem Type 2 diabetes mellitus without complications E11.9 Active 300362084 ALLERGIES Substance Reaction Event Type Date Status MetFORMIN HCl ER diarrhea Drug Allergy May, Active GlipiZIDE low blood sugar Drug Allergy May, Active ENCOUNTERS Encounter Location Date Diagnosis [facility] [id number] [address] May, Type 2 diabetes mellitus with diabetic polyneuropathy E11.42 [facility] [id number] [address] May, Type 2 diabetes mellitus with diabetic polyneuropathy E11.42 and Chronic fatigue R53.82 [facility] [id number] [address] February, [facility] [id number] [address] Jan, [place] [address] [address] Nov, Controlled type 2 diabetes mellitus without complication, without long-term current use of insulin E11.9 [facility] [address] [address] Nov, [place] [id number] [place] [address] 09651- 1586 Oct, [place] [id number] [place] [address] 81111- 0018 Oct, Type 2 diabetes mellitus with diabetic polyneuropathy E11.42 and Primary osteoarthritis involving multiple joints M15.0 [place] [id number] [place] [address] 04247- 4727 Oct, Type 2 diabetes mellitus with diabetic polyneuropathy E11.42 ; Primary osteoarthritis involving multiple joints M15.0 and Viral upper respiratory tract infection J06.9 [place] [id number] [place] [address] 41245- 2912 Sep, Diabetes type 2, controlled E11.9 [place] [id number] [place] [address] 11881- 0439 Jun, Uncontrolled diabetes mellitus type 2 without complications , 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 [place] [address] [address] Jun, Bronchitis J40 [place] [address] [address] May, Controlled type 2 diabetes mellitus without complication, without long-term current use of insulin E11.9 [place] [id number] [place] [address] 75526- 9279 Apr, Type 2 diabetes mellitus without complications E11.9 [place] [address] [address] Apr, [place] [id number] [place] [address] 08101- 5834 Jan, Controlled type 2 diabetes mellitus without complication, without long-term current use of insulin E11.9 [facility] [id number] [place] [address] 58971- 5774 Dec, Diabetes type 2, controlled E11.9 and Type 2 diabetes mellitus with diabetic polyneuropathy E11.42 [facility] [address] [address]- 7642 Nov, Diabetes type 2, controlled E11.9 and 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 [place] [id number] [place] [address] 24628- 2233 Oct, [facility] [address] [address]- 2830 Oct, Diabetes type 2, controlled E11.9 [place] [id number] [place] [address] 87521- 5319 Sep, Diabetes type 2, controlled E11.9 [facility] [id number] [place] [address] 49248 -6232 Aug, Bronchitis J40 [facility] [address] 60445- 1242 Aug, [facility] [id number] [place] [address] 18706- 7820 Jul, Upper respiratory tract infection, unspecified type J06.9 ; Type 2 diabetes mellitus without complications E11.9 and intermediate current use of insulin Z79.4 [place] [id number] [place] [address] 08158- 5028 Jul, [facility] [address] 93138- 6564 15 Jun, 2016 Type 2 diabetes mellitus with diabetic polyneuropathy E11.42 ; Type 2 diabetes mellitus with hyperglycemia E11.65 and Encounter for immunization Z23 [facility] [address] 18179- 5451 May, Controlled type 2 diabetes mellitus without complication, without long-term current use of insulin E11.9 [facility] [id number] [place] [address] 33140- 6507 Apr, Diabetes type 2, uncontrolled E11.65 [facility] [id number] [place] [address] 76788- 6387 Mar, [facility] [id number] [place] [address] 22594- 0124 Mar, Controlled type 2 diabetes mellitus without complication, without long-term current use of insulin E11.9 [place] [id number] [place] [address] 84195- 6864 February, Diabetes type 2, controlled E11.9 [facility] [id number] [place] [address] 41756- 9878 February, Uncontrolled diabetes mellitus type 2 without complications , 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 and Chest pain, unspecified type R07.9 [facility] [id number] [place] [address] 14933- 4614 February, Diabetes type 2, uncontrolled E11.65 [place] [id number] [place] [address] 67039- 6021 Jan, [facility] [id number] [place] [address] 69172- 4360 Jan, Coughing R05 ; Tinea versicolor B36.0 and Diabetes type 2, uncontrolled E11.65 [facility] [address] [place] [address] 66980- 9201 Dec, Cough R05 [facility] [id number] [place] [address] 68951- 6565 Nov, [facility] [id number] [place] [address] 75054- 8019 Oct, Unspecified mood [affective] disorder F39 [place] [id number] [place] [address]- 7603 Oct, Cough R05 and Diabetes type 2, controlled E11.9 [facility] [address] 22797- 8305 Oct, Cough R05 [facility] [id number] [place] [address] 23667- 0020 Oct, Abdominal pain R10.9 ; Cough R05 ; PND (post-nasal drip) R09.82 and GERD (gastroesophageal reflux disease) K21.9 [facility] [address] 23394- 8753 Sep, Unspecified mood [affective] disorder F39 [facility] [address] 79146- 2998 Aug, [facility] [address] 41287- 5882 Aug, [facility] [address] 09232- 8977 Aug, [facility] [address] 07348- 0780 Aug, [facility] [id number] [place] [address] 80464- 1696 Aug, Unspecified mood [affective] disorder F39 [facility] [address] 03919- 2771 Aug, [facility] [id number] [place] [address] 07102- 5725 Aug, [facility] [address] 65052- 6710 Jul, Tooth abscess K04.7 [facility] [id number] [place] [address] 84601- 0246 14 Jul, 2015 Diabetes type 2, controlled E11.9 [facility] [address] [place] [address]- 8385 14 Jul, 2015 [facility] [address] 08 Jul, 2015 [facility] [address] [address]- 8277 30 Jun, 2015 [facility] [address] [address] 30 Jun, 2015 Diabetes type 2, controlled 250.00 [facility] [id number] [place] [address] 516370- 2463 17 Jun, 2015 [facility] [id number] [place] [address] 264358- 4654 15 Jun, 2015 Affective disorder 296.90 [facility] [address] [place] [address] 847583- 2994 Jun, [facility] [id number] [place] [address] 89285- 1759 May, Affective disorder 296.90 [facility] [address] [place] [address] 42574- 0000 May, Diabetes mellitus 250.00 [facility] [address] 269[address] Apr, Episodic mood disorder 296.90 [facility] [address] 80[address] Mar, Episodic mood disorder 296.90 [facility] [address], [place] [address]- 5381 February, Unspecified episodic mood disorder 296.90 [facility] [address], [place] [address]- 8925 14 Jan, 2015 [facility] [address] [address] Jan, [facility] [address] [place] [address] 92221118- 3264 Dec, [facility] [place] [facility] [address] [id number] [place] [address]- 7676 Dec, [facility] [place] [facility] [address] [facility] [id number] [place] [address]- 0492 Dec, [facility] [place] [facility] [address] [facility] [id number] [place] [address]- 3792 Dec, [facility] [place] [facility] [address] [facility] [id number] [place] [address]- 7642 Dec, [facility] [place] [facility] [address] [facility] [id number] [place] [address]- 0797 Dec, [facility] [place] [facility] [address] [facility] [id number] [place] [address]- 1793 Dec, [facility] [place] [facility] [address] [facility] [id number] [place] [address]- 7020 Dec, [facility] [place] [facility] [address] [facility] [id number] [address]- 3901 Nov, [facility] [place] [facility] [address] [facility] [id number] [place] [address]- 8988 Nov, [facility] [place] [facility] [address] [facility] [id number] [place] [address]- 9023 Nov, [facility] [place] [facility] [address] [facility] [id number], [place] [address]- 2389 Nov, [facility] [place] [facility] [address] [facility] [id number] [address]- 4161 Nov, [facility] [place] [facility] [address] [facility] [id number] [place] [address]- 7426 Nov, [facility] [place] [facility] [address] [facility] [id number] [address]- 6032 Oct, [facility] [place] [facility] [address] [facility] [id number] [place] [address]- 2578 Oct, [facility] [place] [facility] [address] [id number] [place] [address]- 6851 Oct, [facility] [place] [facility] [address] [id number] [place] [address]- 1718 Oct, [facility] [place] [facility] [address] [id number] [place] [address]- 4169 Oct, [facility] [place] [facility] [address] [id number] [place] [address]- 7788 Oct, [facility] [place] [facility] [address] [id number] [place] [address]- 6030 Oct, [facility] [place] [facility] [address] [id number] [place] [address]- 4848 Oct, [facility] [place] [facility] [address] [id number] [place] [address]- 9198 Oct, [facility] [place] [facility] [address] [id number] [place] [address]- 8334 Oct, [facility] [place] [facility] [address] [id number] [place] [address]- 0955 Oct, [facility] [place] [facility] [address] [id number] [place] [address]- 0443 Oct, [facility] [place] [facility] [address] [id number] [place] [address]- 6297 Oct, [facility] [place] [facility] [address] [id number] [place] [address]- 8366 Oct, [facility] [place] [facility] [address] [id number] [place] [address]- 8128 Oct, [facility] [place] [facility] [address] [id number] [place] [address]- 8661 Oct, [facility] [place] [facility] [address] [id number] [place] [address]- 0986 Oct, [facility] [place] [facility] [address] [id number] [place] [address]- 5826 Oct, [facility] [place] [facility] [address] [id number] [place] [address]- 6632 Sep, [facility] [place] [facility] [address] [id number] [place] [address]- 6852 Sep, [facility] [place] [facility] [address] [id number] [place] 9713 Sep, [facility] [place] [facility] [address] [id number] [place] [address]- 0928 Sep, [facility] [place] [facility] [address] [id number] [place] [address]- 8746 Sep, [facility] [place] [facility] [address] [id number] [place] [address]- 4547 Sep, [facility] [place] [facility] [address] [id number] [place] [address]- 9043 Aug, [facility] [place] [facility] [address] [id number] [place] [address]- 7516 Aug, [facility] [place] [facility] [address] [id number] [place] [address]- 8691 Aug, [facility] [place] [facility] [address] [id number] [place] [address]- 2073 Aug, [facility] [place] [facility] [address] [id number], [place] [address]- 0787 Jul, [facility] [place] [facility] [address] [id number][place] [address]- 8635 Jul, [facility] [place] [facility] [address] [id number] [place] [address]- 4545 Jul, [facility] [place] [facility] [address] [id number] [place] [address]- 8793 Jul, [facility] [place] [facility] [address] [id number] [place] [address]- 7255 Jul, [facility] [place] [facility] [address] [id number] [place] [address]- 2269 Jul, [facility] [place] [facility] [address] [id number] [place] [address]- 0250 Jul, [facility] [place] [facility] [address] [id number] [place] [address]- 4105 Jul, [facility] [place] [facility] [address] [id number] [place] [address]- 8529 May, [facility] [place] [facility] [address] [id number] [place] [address]- 7025 May, [facility] [place] [facility] [address] [id number] [place] [address]- 2706 Apr, [facility] [place] [facility] [address] [id number] [place] [address]- 7540 Apr, [facility] [place] [facility] [address] [id number] [place] [address]- 2915 Mar, [facility] [place] [facility] [address] [id number] [place] [address]- 7018 Mar, [facility] [place] [facility] [address] [id number] [place] [address]- 3768 Mar, [facility] [place] [facility] [address] [id number] [place] [address]- 7761 Mar, [facility] [place] [facility] [address] [id number] [place] [address]- 3025 Mar, [facility] [place] [facility] [address] [id number] [place] [address]- 7057 Mar, [facility] [place] [facility] [address] [id number] [place] [address]- 0796 Nov, [facility] [place] [facility] [address] [id number] [place] [address]- 6400 Nov, [facility] [place] [facility] [address] [id number] [place] [address]- 2133 Jun, [facility] [place] [facility] [address] [id number] [place] [address]- 6787 May, [facility] [address] [id number] [place] [address]- 2546 Apr, [facility] [address] [id number] [place] [address]- 2546 Apr, [facility] [address] [id number] [place] [address]- 9998 Mar, [facility] [address] [id number] [place] [address]- 6395 Mar, [facility] [address] [id number] [place] [address]- 6006 Mar, [facility] [address] [id number] [place] [address]- 6134 February, [facility] [address] [id number] [place] [address]- 7501 Dec, [facility] [address] [id number] [place] [address]- 6736 Nov, [facility] [address] [id number] [place] [address]- 1691 Oct, [facility] [address] [id number] [place] [address]- 0356 Oct, [facility] [address] [id number] [place] [address]- 2715 Oct, [facility] [place] [facility] [address] [id number] [place] [address]- 3147 Oct, [facility] [place] [facility] [address] [id number] [place] [address]- 8736 Sep, [facility] [place] [facility] [address] [id number] [place] [address]- 3396 Sep, [facility] [address] [id number], [place] [address]- 0429 Sep, [facility] [place] [facility] [address] [id number] [place] [address]- 6126 Sep, [facility] [place] [facility] [address] [id number] [place] [address]- 5946 Sep, [facility] [place] [facility] [address] [id number] [place] [address]- 2116 Sep, [facility] [place] [facility] [address] [id number] [place] [address]- 2188 Sep, [facility] [place] [facility] [address] [id number] [place] [address]- 6450 Sep, [facility] [place] [facility] [address] [id number] [place] [address]- 0417 Sep, [facility] [place] [facility] [address] [id number] [place] [address]- 0195 Sep, [facility] [place] [facility] [address] [id number] [place] [address]- 3723 Sep, [facility] [place] [facility] [address] [id number] [place] [address]- 7888 Aug, [facility] [place] [facility] [address] [id number] [place] [address]- 3537 Aug, [facility] [place] [facility] [address] [id number], [place] [address]- 8136 Aug, [facility] [place] [facility] [address] [id number], [place] [address]- 8764 Jul, [facility] [place] [facility] [address] [id number] [place] [address]- 8122 Jul, [facility] [place] [facility] [address] [id number] [place] [address]- 9043 Dec, [facility] [place] [facility] [address] [id number] [place] [address]- 3559 Aug, [facility] [place] [facility] [address] [facility] [id number] [place] [address]- 9357 Mar, IMMUNIZATIONS No Known Immunizations SOCIAL HISTORY Never Assessed REASON FOR VISIT Diabetes, -Dillan [employer] PLAN OF CARE VITAL SIGNS Height 68 in 2018-05-06 Weight 232.7 lbs 2018-05-06 Temperature 98.4 degrees Fahrenheit 2018-05-06 Heart Rate 84 bpm 2018-05-06 Respiratory Rate 20 2018-05-06 Oximetry 96 % 2018-05-06 BMI 35.38 kg/m2 2018-05-06 Blood pressure systolic 118 mmHg 2018-05-06 Blood pressure diastolic 78 mmHg 2018-05-06 MEDICATIONS Medication Instructions Dosage Frequency Start Date End Date Duration Status Neurontin 300 MG Orally 3 times a day 1 capsule 8h 90 Active Blood Glucose Monitor one touch ultra test blood sugar Jun, Active Daniel Aspirin EC Low Dose 81 MG Orally Once a day 1 tablet 24h Active Levemir FlexTouch 100 UNIT/ML INJECT 45 UNITS SUBCUTANEOUSLY TWICE DAILY 31 Active Terbinafine HCl 1 % Externally Twice a day 1 application to affected area 12h Sep, Active Allopurinol 100 MG TAKE ONE TABLET BY MOUTH THREE TIMES DAILY 90 Active NovoLog Flexpen 100 UNIT/ML INJECT 10 UNITS SUBCUTANEOUSLY THREE TIMES DAILY WITH MEALS 31 Active Meloxicam 15 mg Orally Once a day 1 tablet 24h 30 Oct, 2017 May, 90 days Active RESULTS Name Result Date Reference Range A1C (IN HOUSE) 2018-05-06 A1C IN HOUSE 7.1 4.3 - 5.6 % Previous A1c 7.5 Lot [id number] Exp date 12/2019 TSH 2018-05-06 TSH 2.81 0.40-4.50 TESTOSTERONE, TOTAL 2018-05-06 TESTOSTERONE, TOTAL, MALES (ADULT), [place] [phone] PROCEDURES Procedure Date Ordered Result Body Site GLYCATED HEMOGLOBIN TEST May 06, 2018 [facility] May 06, 2018 INSTRUCTIONS MEDICATIONS ADMINISTERED No Known Medications [...]
--- OUTSIDE RECORDS SUMMARY | 2018-08-12 11:25 | XMS REPORT ---
Author Author MARIA GRAHAM Organization [facility] Address [address] [place] [address] Care Team Providers Care Voip Engineer Name Role Phone MARIA GRAHAM Unavailable PROBLEMS Type Condition ICD9-CM Code ZOF12-AX Code Onset Dates Condition Status SNOMED Code Problem Hypertension, benign I10 Active 97053701 Problem Type 2 diabetes mellitus with hyperglycemia E11.65 Active 926643476173982 Problem Diabetes type 2, uncontrolled E11.65 Active 308415414 Problem Primary insomnia F51.01 Active 434806881 Problem Mood disorder F39 Active 86960174 Problem Diabetes type 2, controlled E11.9 Active 20232518 Problem Chronic fatigue R53.82 Active 41363662 Problem Primary osteoarthritis involving multiple joints M15.0 Active 142641926 Problem penitentiary current use of insulin Z79.4 Active 509007263 Problem Type 2 diabetes mellitus with diabetic polyneuropathy E11.42 Active 09937708 Problem 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 Active 631699132 Problem Type 2 diabetes mellitus without complications E11.9 Active 526516005 ALLERGIES No Information ENCOUNTERS Encounter Location Date Diagnosis [place] [id number] [place] [address] 62297- 5074 May, Type 2 diabetes mellitus with diabetic polyneuropathy E11.42 [facility] [id number] [place] [address] 00728- 3827 May, Type 2 diabetes mellitus with diabetic polyneuropathy E11.42 and Chronic fatigue R53.82 [facility] [id number] [place] [address] 30183- 3104 February, [facility] [id number] [place] [address] 36099- 8275 Jan, [facility] [id number] [place] [address] 71285- 6016 Nov, Controlled type 2 diabetes mellitus without complication, without long-term current use of insulin E11.9 [facility] [address], [place] [address]- 0965 Nov, [facility] [id number] [place] [address] 36614- 4710 Oct, [facility] [id number] [place] [address] 80949- 8767 Oct, Type 2 diabetes mellitus with diabetic polyneuropathy E11.42 and Primary osteoarthritis involving multiple joints M15.0 [place] [id number] [place] [address] 42375- 1143 Oct, Type 2 diabetes mellitus with diabetic polyneuropathy E11.42 ; Primary osteoarthritis involving multiple joints M15.0 and Viral upper respiratory tract infection J06.9 [place] [id number] [place] [address] 22298- 5721 Sep, Diabetes type 2, controlled E11.9 [facility] [id number] [place] [address] 18470- 1196 Jun, Uncontrolled diabetes mellitus type 2 without complications , unspecified senior living insulin use status E11.65 [place] [address], [place] [address] 2271 Jun, Bronchitis J40 [facility] [address], [place] [address]- 3606 May, Controlled type 2 diabetes mellitus without complication, without long-term current use of insulin E11.9 [facility] [address], [place] [address] 1887 Apr, Type 2 diabetes mellitus without complications E11.9 [facility] [id number] [place] [address] 87854- 0447 Apr, [facility] [address], [place] [address] 3430 Jan, Controlled type 2 diabetes mellitus without complication, without long-term current use of insulin E11.9 [facility] [address], [place] [address]- 2262 Dec, Diabetes type 2, controlled E11.9 and Type 2 diabetes mellitus with diabetic polyneuropathy E11.42 [facility] [address], [place] [address]- 4267 Nov, Diabetes type 2, controlled E11.9 and 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 [facility] [id number] [place] [address] 90983- 1588 Oct, [facility] [id number] [place] [address] 62352- 3444 Oct, Diabetes type 2, controlled E11.9 [facility] [id number] [place] [address] 64074- 7967 Sep, Diabetes type 2, controlled E11.9 [facility] [id number] [place] [address] 19984 -7875 Aug, Bronchitis J40 [facility] [id number] [place] [address] 36888- 5280 Aug, [facility] [id number] [place] [address] 46071- 9345 Jul, Upper respiratory tract infection, unspecified type J06.9 ; Type 2 diabetes mellitus without complications E11.9 and penitentiary current use of insulin Z79.4 [facility] [id number] [place] [address] 86220- 4508 Jul, [facility] [id number] [place] [address] 86423- 6239 Jun, Type 2 diabetes mellitus with diabetic polyneuropathy E11.42 ; Type 2 diabetes mellitus with hyperglycemia E11.65 and Encounter for immunization Z23 [facility] [address], [place] [address]- 8174 May, Controlled type 2 diabetes mellitus without complication, without long-term current use of insulin E11.9 [facility] [address], [place] [address]- 0296 Apr, Diabetes type 2, uncontrolled E11.65 [facility] [id number] [place] [address] 65301- 6222 Mar, [facility] [id number] [place] [address] 01895- 9037 Mar, Controlled type 2 diabetes mellitus without complication, without long-term current use of insulin E11.9 [facility] [address], [place] [address]- 8365 February, Diabetes type 2, controlled E11.9 [place] [id number] [place] [address] 40957- 2764 February, Uncontrolled diabetes mellitus type 2 without complications , unspecified senior living insulin use status E11.65 and Chest pain, unspecified type R07.9 [place] [id number] [place] [address] 52951- 6272 February, Diabetes type 2, uncontrolled E11.65 [place] [id number] [place] [address] 81629- 3914 Jan, [place] [id number] [place] [address] 37948- 1222 Jan, Coughing R05 ; Tinea versicolor B36.0 and Diabetes type 2, uncontrolled E11.65 [place] [address], [place] [address]- 8784 Dec, Cough R05 [place] [address], [place] [address]- 8144 Nov, [place] [id number] [place] [address] 83472- 2079 Oct, Unspecified mood [affective] disorder F39 [place] [address], [place] [address]- 8096 Oct, Cough R05 and Diabetes type 2, controlled E11.9 [facility] [id number] [place] [address] 04895- 6749 Oct, Cough R05 [facility] [id number] [place] [address] 16649- 1848 Oct, Abdominal pain R10.9 ; Cough R05 ; PND (post-nasal drip) R09.82 and GERD (gastroesophageal reflux disease) K21.9 [facility] [address] 79231- 4481 Sep, Unspecified mood [affective] disorder F39 [facility] [address] 76452- 4182 Aug, [facility] [id number] [place] [address] 85097- 4000 Aug, [facility] [address] 45141- 3643 Aug, [facility] [id number] [place] [address] 48748- 9054 Aug, [facility] [address] 88722- 6839 Aug, Unspecified mood [affective] disorder F39 [facility] [id number] [place] [address] 93103- 9235 Aug, [facility] [id number] [place] [address] 57131- 5908 Aug, [facility] [id number] [place] [address] 52432- 2702 Jul, Tooth abscess K04.7 [facility] [address] 23721- 3882 Jul, Diabetes type 2, controlled E11.9 [facility] [id number] [place] [address] 74529- 2516 Jul, [facility] [address] [address]- 8491 08 Jul, 2015 [facility] [address], [place] [address]- 7845 30 Jun, 2015 [facility] [address], [place] [address]- 2537 30 Jun, 2015 Diabetes type 2, controlled 250.00 [facility] [id number] [place] [address] 69873- 7664 17 Jun, 2015 [facility] [id number] [place] [address] 76502- 5317 15 Jun, 2015 Affective disorder 296.90 [facility] [id number] [place] [address] 39741- 6970 Jun, [facility] [id number] [place] [address] 67311- 6747 May, Affective disorder 296.90 [facility] [id number] [place] [address] 62273- 1735 May, Diabetes mellitus 250.00 [facility] [id number] [place] [address] 14315- 4751 Apr, Episodic mood disorder 296.90 [facility] [id number], [place] [address]- 2011 Mar, Episodic mood disorder 296.90 [facility] [id number], [place] [address]- 0234 February, Unspecified episodic mood disorder 296.90 [facility] [id number], [place] [address]- 7075 Jan, [facility] [id number], [place] [address]- 2570 Jan, [facility] [address], [place] [address]- 8847 Dec, [facility] [address], [place] [address]- 2546 Dec, [facility] [place] [facility] [address] [id number] [place] [address]- 4924 Dec, [facility] [place] [facility] [address] [id number] [place] [address]- 7766 Dec, [facility] [place] [facility] [address] [facility] [id number] [place] [address]- 2303 Dec, [facility] [place] [facility] [address] [facility] [id number] [place] [address]- 6687 Dec, [facility] [place] [facility] [address] [id number] [place] [address]- 0446 Dec, [facility] [place] [facility] [address] [facility] [id number] [place] [address]- 9385 Dec, [facility] [place] [facility] [address] [facility] [id number] [place] [address]- 7909 Nov, [facility] [place] [facility] [address] [facility] [id number] [place] [address]- 1370 Nov, [facility] [place] [facility] [address] [facility] [id number], [place] [address]- 8439 Nov, [facility] [place] [facility] [address] [facility] [id number] [place] [address]- 1214 Nov, [facility] [place] [facility] [address] [facility] [id number], [place] [address]- 5797 Nov, [facility] [place] [facility] [address] [facility] [id number], [place] [address]- 7061 Nov, [facility] [place] [facility] [address] [facility] [id number], [place] [address]- 5356 Oct, [facility] [place] [facility] [address] [facility] [id number], [place] [address]- 3201 Oct, [facility] [place] [facility] [address] [facility] [id number], [place] [address]- 8764 Oct, [facility] [place] [facility] [address] [id number] [place] [address]- 5634 Oct, [facility] [place] [facility] [address] [id number] [place] [address]- 8744 Oct, [facility] [place] [facility] [address] [id number] [place] [address]- 9108 Oct, [facility] [place] [facility] [address] [id number] [place] [address]- 5167 Oct, [facility] [place] [facility] [address] [id number] [place] [address]- 6999 Oct, [facility] [place] [facility] [address] [id number] [place] [address]- 8676 Oct, [facility] [place] [facility] [address] [id number] [place] [address]- 2023 Oct, [facility] [place] [facility] [address] [id number] [place] [address]- 7593 Oct, [facility] [place] [facility] [address] [id number] [place] [address]- 5281 Oct, [facility] [place] [facility] [address] [id number] [place] [address]- 9011 Oct, [facility] [place] [facility] [address] [id number] [place] [address]- 4310 Oct, [facility] [place] [facility] [address] [id number] [place] [address]- 8467 Oct, [facility] [place] [facility] [address] [id number] [place] [address]- 3701 Oct, [facility] [place] [facility] [address] [id number] [place] [address]- 8434 Oct, [facility] [place] [facility] [address] [id number] [place] [address]- 2382 Oct, [facility] [place] [facility] [address] [id number] [place] [address]- 2046 Sep, [facility] [place] [facility] [address] [id number] [place] 5533 Sep, [facility] [place] [facility] [address] [id number] [place] [address]- 8686 Sep, [facility] [place] [facility] [address] [id number] [place] [address]- 5437 Sep, [facility] [place] [facility] [address] [id number] [place] [address]- 7803 Sep, [facility] [place] [facility] [address] [id number] [place] 5308 Sep, [facility] [place] [facility] [address] [id number] [place] [address]- 1457 Aug, [facility] [place] [facility] [address] [id number] [place] [address]- 6194 Aug, [facility] [place] [facility] [address] [id number] [place] [address]- 0139 Aug, [facility] [place] [facility] [address] [id number] [place] [address]- 3549 Aug, [facility] [place] [facility] [address] [id number] [place] [address]- 5839 Jul, [facility] [place] [facility] [address] [id number], [place] [address]- 7365 Jul, [facility] [place] [facility] [address] [id number], [place] [address]- 3651 Jul, [facility] [place] [facility] [address] [id number] [place] [address]- 1999 Jul, [facility] [place] [facility] [address] [id number] 0725 Jul, [facility] [place] [facility] [address] [id number], [place] [address]- 5677 Jul, [facility] [place] [facility] [address] [id number] [place] [address]- 7092 Jul, [facility] [place] [facility] [address] [id number] [place] [address]- 4472 Jul, [facility] [place] [facility] [address] [id number] [place] [address]- 3849 May, [facility] [place] [facility] [address] [id number] [place] [address]- 9515 May, [facility] [place] [facility] [address] [id number] [place] [address]- 9840 Apr, [facility] [place] [facility] [address] [id number] [place] [address]- 8103 Apr, [facility] [place] [facility] [address] [id number] [place] [address]- 0465 Mar, [facility] [place] [facility] [address] [id number] [place] [address]- 7040 Mar, [facility] [place] [facility] [address] [id number] [place] [address]- 0264 Mar, [facility] [place] [facility] [address] [id number] [place] [address]- 0154 Mar, [facility] [place] [facility] [address] [id number] [place] [address]- 2117 Mar, [facility] [place] [facility] [address] [id number] [place] [address]- 4783 Mar, [facility] [place] [facility] [address] [id number] [place] [address]- 2926 Nov, [facility] [place] [facility] [address] [id number] [place] 7598 Nov, [facility] [place] [facility] [address] [id number] [place] [address]- 1851 Jun, [facility] [place] [facility] [address] [id number] [place] [address]- 3614 May, [facility] [address] [id number] [place] [address]- 0025 Apr, [facility] [place] [facility] [address] [id number] [place] [address]- 6836 Apr, [facility] [address] [id number] [place] [address]- 2157 Mar, [facility] [place] [facility] [address] [id number] [place] [address]- 5565 Mar, [facility] [address] [id number] [place] [address]- 5052 Mar, [facility] [place] [facility] [address] [id number] [place] [address]- 5433 February, [facility] [address] [id number] [place] [address]- 7822 Dec, [facility] [address] [id number] [place] [address]- 6572 Nov, [facility] [address] [id number] [place] [address]- 4396 Oct, [facility] [address] [id number] [place] [address]- 7015 Oct, [facility] [address] [id number] [place] [address]- 3267 Oct, [facility] [place] [facility] [address] [id number] [place] [address]- 4208 Oct, [facility] [place] [facility] [address] [id number] [place] [address]- 7591 Sep, [facility] [place] [facility] [address] [id number] [place] [address]- 4826 Sep, [facility] [place] [facility] [address] [id number] [place] [address]- 8291 Sep, [facility] [place] [facility] [address] [id number], [place] [address]- 8142 Sep, [facility] [address] [facility] [id number] [place] [address]- 8656 Sep, [facility] [id number], [place] [address]- 2576 Sep, [facility] [address] [address]- 9956 Sep, [facility] [address] [facility] [id number], [place] [address]- 5396 Sep, [facility] [id number] [place] [address], [place] [address]- 4766 Sep, [facility] [address] 8807 Sep, [facility] [address], [place] [address]- 0599 Sep, [facility] [address], [place] [address]- 8168 Aug, [facility] [address], [place] [address]- 4844 Aug, [facility] [address], [place] [address]- 9467 Aug, [facility] [address], [place] [address]- 5106 Jul, [facility] [id number], [place] [address]- 2924 Jul, [facility] [address], [place] [address]- 6782 Dec, [facility] [id number] [address]- 5670 Aug, [facility] [address], [place] [address]- 8652 Mar, IMMUNIZATIONS No Known Immunizations SOCIAL HISTORY Never Assessed REASON FOR VISIT PLAN OF CARE VITAL SIGNS MEDICATIONS Medication Instructions Dosage Frequency Start Date End Date Duration Status Meloxicam 15 mg Orally Once a day 1 tablet 24h Oct, May, 90 days Active RESULTS No Results PROCEDURES No Known procedures INSTRUCTIONS MEDICATIONS ADMINISTERED No Known Medications MEDICAL [...]
--- OUTSIDE RECORDS SUMMARY | 2018-08-12 11:25 | XMS REPORT ---
Author Author MARIA GRAHAM Organization [facility] Address [address] [place] [address] Care Team Providers Care Credit Analyst Name Role Phone MARIA GRAHAM Unavailable PROBLEMS Type Condition ICD9-CM Code [id number] Code Onset Dates Condition Status SNOMED Code Problem Hypertension, benign I10 Active 33440722 Problem Type 2 diabetes mellitus with hyperglycemia E11.65 Active 415369582910009 Problem Diabetes type 2, uncontrolled E11.65 Active 728644021 Problem Primary insomnia F51.01 Active 425520654 Problem Mood disorder F39 Active 01884299 Problem Diabetes type 2, controlled E11.9 Active 37993563 Problem Chronic fatigue R53.82 Active 20888161 Problem Primary osteoarthritis involving multiple joints M15.0 Active 549151268 Problem residential current use of insulin Z79.4 Active 624422105 Problem Type 2 diabetes mellitus with diabetic polyneuropathy E11.42 Active 22540510 Problem 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 Active 589451231 Problem Type 2 diabetes mellitus without complications E11.9 Active 443474914 ALLERGIES No Information ENCOUNTERS Encounter Location Date Diagnosis [facility] [id number] [place] [address] 87198- 7848 May, Type 2 diabetes mellitus with diabetic polyneuropathy E11.42 [facility] [id number] [place] [address] 84380- 2318 May, Type 2 diabetes mellitus with diabetic polyneuropathy E11.42 and Chronic fatigue R53.82 [facility] [id number] [place] [address] 70751- 4412 February, [facility] [id number] [place] [address] 78013- 2859 Jan, [facility] [id number] [place] [address] 10668- 2243 Nov, Controlled type 2 diabetes mellitus without complication, without long-term current use of insulin E11.9 [facility] [address], [place] [address] 7389 Nov, [facility] [id number] [place] [address] 77354- 6270 Oct, [facility] [id number] [place] [address] 19624- 0787 Oct, Type 2 diabetes mellitus with diabetic polyneuropathy E11.42 and Primary osteoarthritis involving multiple joints M15.0 [facility] [id number] [place] [address] 22379- 2445 Oct, Type 2 diabetes mellitus with diabetic polyneuropathy E11.42 ; Primary osteoarthritis involving multiple joints M15.0 and Viral upper respiratory tract infection J06.9 [facility] [id number] [place] [address] 95826- 6209 Sep, Diabetes type 2, controlled E11.9 [facility] [id number] [place] [address] 03467- 6634 Jun, Uncontrolled diabetes mellitus type 2 without complications , unspecified long-term insulin use status E11.65 [facility] [address], [place] [address] 0089 Jun, Bronchitis J40 [facility] [address], [place] [address] 5237 May, Controlled type 2 diabetes mellitus without complication, without long-term current use of insulin E11.9 [facility] [address], [place] [address]- 2755 Apr, Type 2 diabetes mellitus without complications E11.9 [facility] [id number] [place] [address] 73215- 7867 Apr, [facility] [address], [place] [address]- 8614 Jan, Controlled type 2 diabetes mellitus without complication, without long-term current use of insulin E11.9 [facility] [address], [place] [address]- 4063 Dec, Diabetes type 2, controlled E11.9 and Type 2 diabetes mellitus with diabetic polyneuropathy E11.42 [facility] [address], [place] [address]- 4112 Nov, Diabetes type 2, controlled E11.9 and 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 [facility] [id number] [place] [address] 62328- 2811 Oct, [facility] [id number] [place] [address] 12836- 7602 Oct, Diabetes type 2, controlled E11.9 [facility] [id number] [place] [address] 11873- 7196 Sep, Diabetes type 2, controlled E11.9 [facility] [id number] [place] [address] 24630 -9287 Aug, Bronchitis J40 [facility] [id number] [place] [address] 72804- 7727 Aug, [facility] [id number] [place] [address] 64354- 2706 Jul, Upper respiratory tract infection, unspecified type J06.9 ; Type 2 diabetes mellitus without complications E11.9 and residential current use of insulin Z79.4 [facility] [address] [place] [address] 96869- 2803 Jul, [facility] [id number] [place] [address] 88245- 6803 Jun, Type 2 diabetes mellitus with diabetic polyneuropathy E11.42 ; Type 2 diabetes mellitus with hyperglycemia E11.65 and Encounter for immunization Z23 [facility] [address], [place] [address]- 8879 May, Controlled type 2 diabetes mellitus without complication, without long-term current use of insulin E11.9 [facility] [address], [place] [address]- 5672 Apr, Diabetes type 2, uncontrolled E11.65 [facility] [id number] [place] [address] 71658- 3328 Mar, [facility] [id number] [place] [address] 73608- 9563 Mar, Controlled type 2 diabetes mellitus without complication, without long-term current use of insulin E11.9 [facility] [address], [place] [address]- 1194 February, Diabetes type 2, controlled E11.9 [place] [id number] [place] [address] 42006- 4802 February, Uncontrolled diabetes mellitus type 2 without complications , unspecified long-term insulin use status E11.65 and Chest pain, unspecified type R07.9 [place] [address] [place] [address] 53298- 4043 February, Diabetes type 2, uncontrolled E11.65 [place] [id number] [place] [address] 59222- 9286 Jan, [place] [id number] [place] [address] 94400- 8904 Jan, Coughing R05 ; Tinea versicolor B36.0 and Diabetes type 2, uncontrolled E11.65 [place] [address], [place] [address]- 1111 Dec, Cough R05 [place] [address], [place] [address]- 1640 Nov, [place] [id number] [place] [address] 64300- 7529 Oct, Unspecified mood [affective] disorder F39 [place] [address], [place] [address]- 1760 Oct, Cough R05 and Diabetes type 2, controlled E11.9 [facility] [id number] [place] [address] 79282- 4836 Oct, Cough R05 [facility] [id number] [place] [address] 24615- 0229 Oct, Abdominal pain R10.9 ; Cough R05 ; PND (post-nasal drip) R09.82 and GERD (gastroesophageal reflux disease) K21.9 [facility] [address] 76950- 3235 Sep, Unspecified mood [affective] disorder F39 [facility] [address] 36705- 0004 Aug, [facility] [id number] [place] [address] 55044- 7627 Aug, [facility] [address] 73291- 5091 Aug, [facility] [id number] [place] [address] 52981- 5115 Aug, [facility] [address] 09133- 4537 Aug, Unspecified mood [affective] disorder F39 [facility] [id number] [place] [address] 41155- 2708 Aug, [facility] [id number] [place] [address] 91083- 0736 Aug, [facility] [id number] [place] [address] 77808- 1200 Jul, Tooth abscess K04.7 [facility] [address] 06492- 7710 Jul, Diabetes type 2, controlled E11.9 [facility] [id number] [place] [address] 28126- 5946 Jul, [facility] [address] [address]- 2880 08 Jul, 2015 [facility] [address], [place] [address]- 3142 30 Jun, 2015 [facility] [address], [place] [address]- 1454 30 Jun, 2015 Diabetes type 2, controlled 250.00 [facility] [id number] [place] [address] 14089- 5234 17 Jun, 2015 [facility] [id number] [place] [address] 65204- 1147 15 Jun, 2015 Affective disorder 296.90 [facility] [id number] [place] [address] 30353- 1796 Jun, [facility] [id number] [place] [address] 89639- 5331 May, Affective disorder 296.90 [facility] [address] [place] [address] 01925- 7264 May, Diabetes mellitus 250.00 [facility] [address] [place] [address] 62741- 5314 Apr, Episodic mood disorder 296.90 [facility] [address], [place] [address]- 2582 Mar, Episodic mood disorder 296.90 [facility] [address], [place] [address]- 9556 February, Unspecified episodic mood disorder 296.90 [facility] [address], [place] [address]- 8783 Jan, [facility] [address], [place] [address]- 0176 Jan, [facility] [address], [place] [address]- 1785 Dec, [facility] [address], [place] [address]- 2546 Dec, [facility] [place] [facility] [address] [id number] [place] [address]- 7849 Dec, [facility] [place] [facility] [address] [id number] [place] [address]- 1846 Dec, [facility] [place] [facility] [address] [facility] [id number] [place] [address]- 7982 Dec, [facility] [place] [facility] [address] [facility] [id number] [place] [address]- 2762 Dec, [facility] [place] [facility] [address] [id number] [place] [address]- 9170 Dec, [facility] [place] [facility] [address] [facility] [id number] [place] [address]- 3812 Dec, [facility] [place] [facility] [address] [facility] [id number] [place] [address]- 9099 Nov, [facility] [place] [facility] [address] [facility] [id number] [place] [address]- 1404 Nov, [facility] [place] [facility] [address] [facility] [id number], [place] [address]- 8768 Nov, [facility] [place] [facility] [address] [facility] [id number] [place] [address]- 2181 Nov, [facility] [place] [facility] [address] [facility] [id number], [place] [address]- 5190 Nov, [facility] [place] [facility] [address] [facility] [id number], [place] [address]- 3844 Nov, [facility] [place] [facility] [address] [facility] [id number], [place] [address]- 6820 Oct, [facility] [place] [facility] [address] [facility] [id number], [place] [address]- 1455 Oct, [facility] [place] [facility] [address] [facility] [id number], [place] [address]- 2569 Oct, [facility] [place] [facility] [address] [id number] [place] [address]- 7243 Oct, [facility] [place] [facility] [address] [id number] [place] [address]- 3743 Oct, [facility] [place] [facility] [address] [id number] [place] [address]- 2122 Oct, [facility] [place] [facility] [address] [id number] [place] [address]- 3415 Oct, [facility] [place] [facility] [address] [id number] [place] [address]- 1131 Oct, [facility] [place] [facility] [address] [id number] [place] [address]- 3218 Oct, [facility] [place] [facility] [address] [id number] [place] [address]- 9971 Oct, [facility] [place] [facility] [address] [id number] [place] [address]- 5730 Oct, [facility] [place] [facility] [address] [id number] [place] [address]- 3342 Oct, [facility] [place] [facility] [address] [id number] [place] [address]- 6684 Oct, [facility] [place] [facility] [address] [id number] [place] [address]- 4391 Oct, [facility] [place] [facility] [address] [id number] [place] [address]- 7267 Oct, [facility] [place] [facility] [address] [id number] [place] [address]- 1379 Oct, [facility] [place] [facility] [address] [id number] [place] [address]- 9579 Oct, [facility] [place] [facility] [address] [id number] [place] [address]- 2397 Oct, [facility] [place] [facility] [address] [id number] [place] [address]- 2571 Sep, [facility] [place] [facility] [address] [id number] [place] 1387 Sep, [facility] [place] [facility] [address] [id number] [place] [address]- 2132 Sep, [facility] [place] [facility] [address] [id number] [place] [address]- 4102 Sep, [facility] [place] [facility] [address] [id number] [place] [address]- 0516 Sep, [facility] [place] [facility] [address] [id number] [place] 6135 Sep, [facility] [place] [facility] [address] [id number] [place] [address]- 9110 Aug, [facility] [place] [facility] [address] [id number] [place] [address]- 2323 Aug, [facility] [place] [facility] [address] [id number] [place] [address]- 4671 Aug, [facility] [place] [facility] [address] [id number] [place] [address]- 0738 Aug, [facility] [place] [facility] [address] [id number] [place] [address]- 9853 Jul, [facility] [place] [facility] [address] [id number], [place] [address]- 4045 Jul, [facility] [place] [facility] [address] [id number], [place] [address]- 4839 Jul, [facility] [place] [facility] [address] [id number] [place] [address]- 7280 Jul, [facility] [place] [facility] [address] [id number] 7256 Jul, [facility] [place] [facility] [address] [id number], [place] [address]- 0512 Jul, [facility] [place] [facility] [address] [id number] [place] [address]- 0508 Jul, [facility] [place] [facility] [address] [id number] [place] [address]- 7293 Jul, [facility] [place] [facility] [address] [id number] [place] [address]- 3941 May, [facility] [place] [facility] [address] [id number] [place] [address]- 7234 May, [facility] [place] [facility] [address] [id number] [place] [address]- 1928 Apr, [facility] [place] [facility] [address] [id number] [place] [address]- 0906 Apr, [facility] [place] [facility] [address] [id number] [place] [address]- 5659 Mar, [facility] [place] [facility] [address] [id number] [place] [address]- 6275 Mar, [facility] [place] [facility] [address] [id number] [place] [address]- 2211 Mar, [facility] [place] [facility] [address] [id number] [place] [address]- 8969 Mar, [facility] [place] [facility] [address] [id number] [place] [address]- 5228 Mar, [facility] [place] [facility] [address] [id number] [place] [address]- 5045 Mar, [facility] [place] [facility] [address] [id number] [place] [address]- 8098 Nov, [facility] [place] [facility] [address] [id number] [place] 6012 Nov, [facility] [place] [facility] [address] [id number] [place] [address]- 6912 Jun, [facility] [place] [facility] [address] [id number] [place] [address]- 7774 May, [facility] [address] [id number] [place] [address]- 8990 Apr, [facility] [place] [facility] [address] [id number] [place] [address]- 5076 Apr, [facility] [address] [id number] [place] [address]- 7099 Mar, [facility] [place] [facility] [address] [id number] [place] [address]- 1903 Mar, [facility] [address] [id number] [place] [address]- 8278 Mar, [facility] [place] [facility] [address] [id number] [place] [address]- 9012 February, [facility] [address] [id number] [place] [address]- 4729 Dec, [facility] [address] [id number] [place] [address]- 0297 Nov, [facility] [address] [id number] [place] [address]- 5593 Oct, [facility] [address] [id number] [place] [address]- 3456 Oct, [facility] [address] [id number] [place] [address]- 4202 Oct, [facility] [place] [facility] [address] [id number] [place] [address]- 3621 Oct, [facility] [place] [facility] [address] [id number] [place] [address]- 9612 Sep, [facility] [place] [facility] [address] [id number] [place] [address]- 3296 Sep, [facility] [place] [facility] [address] [id number] [place] [address]- 6053 Sep, [facility] [place] [facility] [address] [id number], [place] [address]- 0450 Sep, [facility] [address] [facility] [id number] [place] [address]- 2766 Sep, [facility] [id number], [place] [address]- 1266 Sep, [facility] [address] [place] [address]- 9016 Sep, [facility] [address] [facility] [id number], [place] [address]- 9168 Sep, [facility] [id number] [place] [address], [place] [address]- 5155 Sep, [facility] [address] 9054 Sep, [facility] [address], [place] [address]- 0815 Sep, [facility] [address], [place] [address]- 2019 Aug, [facility] [address], [place] [address]- 7808 Aug, [facility] [address], [place] [address]- 3896 Aug, [facility] [address], [place] [address]- 6908 Jul, [facility] [id number], [place] [address]- 9916 Jul, [facility] [address], [place] [address]- 2555 Dec, [facility] [id number], [place] [address]- 5044 Aug, [facility] [address], [place] [address]- 1488 Mar, IMMUNIZATIONS No Known Immunizations SOCIAL HISTORY Never Assessed REASON FOR VISIT samples PLAN OF CARE VITAL SIGNS MEDICATIONS Medication Instructions Dosage Frequency Start Date End Date Duration Status BD Pen Needle Mini U/F 31G X 5 MM use with flexpen insulin May, Active RESULTS No Results PROCEDURES No Known [...]
--- OUTSIDE RECORDS SUMMARY | 2018-08-12 11:26 | XMS REPORT ---
Author Author MARIA GRAHAM Organization [facility] Address [address] [place] [address] Care Team Providers Care Furnace Hand Name Role Phone MARIA GRAHAM Unavailable PROBLEMS Type Condition ICD9-CM Code [id number] Code Onset Dates Condition Status SNOMED Code Problem Hypertension, benign I10 Active 47200857 Problem Type 2 diabetes mellitus with hyperglycemia E11.65 Active 502720206493074 Problem Diabetes type 2, uncontrolled E11.65 Active 893492802 Problem Primary insomnia F51.01 Active 955761831 Problem Mood disorder F39 Active 79555798 Problem Diabetes type 2, controlled E11.9 Active 03065599 Problem Chronic fatigue R53.82 Active 60086301 Problem Primary osteoarthritis involving multiple joints M15.0 Active 400963112 Problem senior care current use of insulin Z79.4 Active 520321152 Problem Type 2 diabetes mellitus with diabetic polyneuropathy E11.42 Active 10105382 Problem 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 Active 517441449 Problem Type 2 diabetes mellitus without complications E11.9 Active 016141105 ALLERGIES No Information ENCOUNTERS Encounter Location Date Diagnosis [place] [id number] [place] [address] 83827- 4625 May, Type 2 diabetes mellitus with diabetic polyneuropathy E11.42 and Chronic fatigue R53.82 [facility] [address] [address] February, [place] [id number] [place] [address] 12001- 5671 Jan, [place] [id number] [place] [address] 88244- 7807 Nov, Controlled type 2 diabetes mellitus without complication, without long-term current use of insulin E11.9 [facility] [place] [id number] [place] [address] 18955- 6881 Nov, [facility] [address] [address] 8525 Oct, [facility] [address] [place] [address] 53915107- 8376 Oct, Type 2 diabetes mellitus with diabetic polyneuropathy E11.42 and Primary osteoarthritis involving multiple joints M15.0 [facility] [id number] [place] [address] 13985- 0944 Oct, Type 2 diabetes mellitus with diabetic polyneuropathy E11.42 ; Primary osteoarthritis involving multiple joints M15.0 and Viral upper respiratory tract infection J06.9 [place] [id number] [place] [address] 57601- 1343 Sep, Diabetes type 2, controlled E11.9 [facility] [address] [place] [address] 41870- 9902 Jun, Uncontrolled diabetes mellitus type 2 without complications , 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 [place] [address] [place] [address] 13973- 8776 Jun, Bronchitis J40 [place] [id number] [place] [address] 47243- 8364 May, Controlled type 2 diabetes mellitus without complication, without long-term current use of insulin E11.9 [facility] [address] [address] 4601 Apr, Type 2 diabetes mellitus without complications E11.9 [facility] [address] [address] 1527 Apr, [facility] [id number] [place] [address] 89047- 1254 Jan, Controlled type 2 diabetes mellitus without complication, without long-term current use of insulin E11.9 [facility] [address] [address] 7314 Dec, Diabetes type 2, controlled E11.9 and Type 2 diabetes mellitus with diabetic polyneuropathy E11.42 [facility] [address] [address]- 0565 Nov, Diabetes type 2, controlled E11.9 and 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 [facility] [id number] [place] [address] 24170- 9640 Oct, [facility] [id number] [place] [address] 50322- 8660 Oct, Diabetes type 2, controlled E11.9 [facility] [id number] [place] [address] 47662- 1739 Sep, Diabetes type 2, controlled E11.9 [facility] [id number] [place] [address] -1987 Aug, Bronchitis J40 [facility] [id number] [place] [address] 85559- 9374 Aug, [facility] [id number] [place] [address] 56100- 4964 Jul, Upper respiratory tract infection, unspecified type J06.9 ; Type 2 diabetes mellitus without complications E11.9 and senior care current use of insulin Z79.4 [place] [id number] [place] [address] 47802- 8731 Jul, [facility] [id number] [place] [address] 54261- 1837 Jun, Type 2 diabetes mellitus with diabetic polyneuropathy E11.42 ; Type 2 diabetes mellitus with hyperglycemia E11.65 and Encounter for immunization Z23 [place] [id number] [place] [address] 82350- 5777 May, Controlled type 2 diabetes mellitus without complication, without long-term current use of insulin E11.9 [place] [address] [place] [address] 05495- 3522 Apr, Diabetes type 2, uncontrolled E11.65 [facility] [address] [address]- 8994 Mar, [facility] [id number] [place] [address] 96381- 4471 Mar, Controlled type 2 diabetes mellitus without complication, without long-term current use of insulin E11.9 [facility] [address] [address] 5749 February, Diabetes type 2, controlled E11.9 [facility] [id number] [place] [address] 73055- 2318 February, Uncontrolled diabetes mellitus type 2 without complications , unspecified chcf insulin use status E11.65 and Chest pain, unspecified type R07.9 [place] [address] [address]- 4796 February, Diabetes type 2, uncontrolled E11.65 [place] [id number] [place] [address] 03770- 1396 Jan, [place] [id number] [place] [address] 21753- 3778 Jan, Coughing R05 ; Tinea versicolor B36.0 and Diabetes type 2, uncontrolled E11.65 [place] [address] [address]- 0948 Dec, Cough R05 [place] [id number] [place] [address] 67212- 5821 Nov, [place] [address] [address]- 2833 Oct, Unspecified mood [affective] disorder F39 [place] [id number] [place] [address] 79564- 2263 Oct, Cough R05 and Diabetes type 2, controlled E11.9 [facility] [address] [address]- 2311 Oct, Cough R05 [place] [id number] [place] [address] 61164- 3755 Oct, Abdominal pain R10.9 ; Cough R05 ; PND (post-nasal drip) R09.82 and GERD (gastroesophageal reflux disease) K21.9 [facility] [id number] [place] [address] 49585- 4636 Sep, Unspecified mood [affective] disorder F39 [facility] [address] 93574- 0562 Aug, [facility] [address] 29240- 5156 Aug, [facility] [address] 99007- 1497 Aug, [facility] [address] 52704- 7787 Aug, [facility] [address] 17823- 6666 Aug, Unspecified mood [affective] disorder F39 [facility] [address] 51239- 9447 Aug, [facility] [id number] [place] [address] 61249- 1332 Aug, [facility] [id number] [place] [address] 14846- 3966 Jul, Tooth abscess K04.7 [facility] [id number] [place] [address] 85654- 0599 Jul, Diabetes type 2, controlled E11.9 [facility] [address] 02240- 2663 Jul, [facility] [id number] [place] [address] 68031- 5891 Jul, [facility] [address] 14540- 5604 30 Jun, 2015 [facility] [address] 6626 30 Jun, 2015 Diabetes type 2, controlled 250.00 [facility] [address], [place] [address]- 7116 17 Jun, 2015 [facility] [address] 7499 15 Jun, 2015 Affective disorder 296.90 [facility] [address] [place] [address] 88553- 5889 Jun, [facility] [id number] [place] [address] 80422- 3113 May, Affective disorder 296.90 [facility] [address] [place] [address] 76695- 2254 May, Diabetes mellitus 250.00 [facility] [address] [place] [address] 56217- 6044 Apr, Episodic mood disorder 296.90 [facility] [address] [address]- 8874 Mar, Episodic mood disorder 296.90 [facility] [address] 5488 February, Unspecified episodic mood disorder 296.90 [facility] [address] [address]- 3140 14 Jan, 2015 [facility] [address] [address]- 5886 Jan, [facility] [address], [place] [address]- 7246 Dec, [facility] [address] 8783 Dec, [facility] [address] [address]129 Dec, [facility] [place] [facility] [address] [id number] [place] [address]- 8720 Dec, [facility] [place] [facility] [address] [id number] [place] [address]- 0620 Dec, [facility] [place] [facility] [address] [id number] [place] [address]- 8302 Dec, [facility] [place] [facility] [address] [id number] [place] [address]- 5554 Dec, [facility] [place] [facility] [address] [id number] [place] [address]- 0226 Dec, [facility] [place] [facility] [address] [id number] [place] [address]- 2427 Nov, [facility] [place] [facility] [address] [id number] [place] [address]- 4865 Nov, [facility] [place] [facility] [address] [id number] [place] [address]- 4272 Nov, [facility] [place] [facility] [address] [id number] [place] [address]- 7919 Nov, [facility] [place] [facility] [address] [id number] [place] [address]- 8109 Nov, [facility] [place] [facility] [address] [id number] [place] [address]- 2918 Nov, [facility] [place] [facility] [address] [id number] [place] [address]- 6826 Oct, [facility] [place] [facility] [address] [id number] [place] [address]- 9481 Oct, [facility] [place] [facility] [address] [id number] [place] [address]- 6719 Oct, [facility] [place] [facility] [address] [id number] [place] [address]- 1708 Oct, [facility] [place] [facility] [address] [id number] [place] [address]- 7436 Oct, [facility] [place] [facility] [address] [id number] [place] [address]- 2895 Oct, [facility] [place] [facility] [address] [id number] [place] [address]- 2849 Oct, [facility] [place] [facility] [address] [id number] [place] [address]- 5415 Oct, [facility] [place] [facility] [address] [id number] [place] [address]- 8100 Oct, [facility] [place] [facility] [address] [id number] [place] [address]- 2824 Oct, [facility] [place] [facility] [address] [id number] [place] [address]- 9964 Oct, [facility] [place] [facility] [address] [id number] [place] [address]- 6796 Oct, [facility] [place] [facility] [address] [id number] [place] [address]- 1174 Oct, [facility] [place] [facility] [address] [id number] [place] [address]- 3246 Oct, [facility] [place] [facility] [address] [id number] [place] [address]- 4819 Oct, [facility] [place] [facility] [address] [id number] [place] [address]- 1725 Oct, [facility] [place] [facility] [address] [id number] [address]- 7660 Oct, [facility] [place] [facility] [address] [id number] [place] [address]- 5224 Oct, [facility] [place] [facility] [address] [id number] [place] [address]- 2762 Sep, [facility] [place] [facility] [address] [id number] [place] [address]- 9594 Sep, [facility] [place] [facility] [address] [id number] [place] [address]- 6395 Sep, [facility] [place] [facility] [address] [id number] [place] [address]- 0365 Sep, [facility] [place] [facility] [address] [id number] [place] 9581 Sep, [facility] [place] [facility] [address] [id number] [place] [address]- 9457 Sep, [facility] [place] [facility] [address] [id number] [place] [address]- 1869 Aug, [facility] [place] [facility] [address] [id number] [place] [address]- 7219 Aug, [facility] [place] [facility] [address] [id number] [place] [address]- 1410 Aug, [facility] [place] [facility] [address] [id number] [place] [address]- 5547 Aug, [facility] [place] [facility] [address] [id number] [place] [address]- 3608 Jul, [facility] [place] [facility] [address] [id number] [place] [address]- 6460 Jul, [facility] [place] [facility] [address] [id number] [place] [address]- 7290 Jul, [facility] [place] [facility] [address] [id number] [place] [address]- 8542 Jul, [facility] [place] [facility] [address] [id number] [place] [address]- 8667 Jul, [facility] [place] [facility] [address] [id number] [place] [address]- 9184 Jul, [facility] [place] [facility] [address] [id number] [place] 2939 Jul, [facility] [place] [facility] [address] [id number] [place] [address]- 2974 Jul, [facility] [place] [facility] [address] [id number] [place] [address]- 6650 May, [facility] [place] [facility] [address] [id number] [place] [address]- 5298 May, [facility] [place] [facility] [address] [id number] [place] [address]- 1190 Apr, [facility] [place] [facility] [address] [id number] [place] [address]- 4221 Apr, [facility] [place] [facility] [address] [id number] [place] [address]- 0104 Mar, [facility] [place] [facility] [address] [id number] [place] [address]- 1405 Mar, [facility] [place] [facility] [address] [id number] [place] [address]- 4115 Mar, [facility] [place] [facility] [address] [id number] [place] [address]- 1487 Mar, [facility] [place] [facility] [address] [id number] [place] [address]- 0915 Mar, [facility] [place] [facility] [address] [id number] [place] [address]- 5351 Mar, [facility] [place] [facility] [address] [id number] [place] [address]- 6223 Nov, [facility] [place] [facility] [address] [id number] [place] [address]- 8493 Nov, [facility] [place] [facility] [address] [id number] [place] [address]- 1362 Jun, [facility] [place] [facility] [address] [id number] [place] [address]- 4390 May, [facility] [place] [facility] [address] [id number] [place] [address]- 1706 Apr, [facility] [place] [facility] [address] [id number] [place] [address] 2546 06 Apr, 2013 [facility] [address] [id number] [place] [address]- 4931 Mar, [facility] [address] [id number] [place] [address]- 3146 Mar, [facility] [address] [id number] [place] [address]- 3136 Mar, [facility] [address] [id number] [place] [address]- 9407 February, [facility] [address] [id number] [place] [address]- 0916 Dec, [facility] [address] [id number] [place] [address]- 4806 Nov, [facility] [address] [id number] [place] [address]- 6023 Oct, [facility] [address] [id number] [place] [address]- 7278 Oct, [facility] [address] [id number] [place] [address]- 4668 Oct, [facility] [address] [id number] [place] [address]- 9636 Oct, [facility] [address] [id number] [place] [address]- 7226 Sep, [facility] [address] [id number] [place] [address]- 3291 Sep, [facility] [address] [id number] [place] [address]- 2958 Sep, [facility] [address] [id number] [place] [address]- 2546 Sep, [facility] [address] [id number] [place] [address]- 3178 Sep, [facility] [address] [address]- 9122 Sep, [facility] [address] [address]- 0167 Sep, [facility] [address] [address]- 9468 Sep, [facility] [address], [place] [address]- 3068 Sep, [facility] [address] [address]- 6625 Sep, [facility] [address] [place] [address] 55634- 6566 Sep, [facility] [address] [address]- 1546 Aug, [facility] [address] [address]- 0009 Aug, [facility] [address] [address]- 8430 Aug, [facility] [address] [address]- 4144 Jul, [facility] [address] [address]- 3921 Jul, [facility] [id number] [address]- 3307 Dec, [facility] [id number] [address]- 9400 Aug, [facility] [address] [address]- 3307 Mar, IMMUNIZATIONS No Known Immunizations SOCIAL HISTORY Never Assessed REASON FOR VISIT med refill PLAN OF CARE VITAL SIGNS MEDICATIONS No Known Medications RESULTS No Results PROCEDURES No Known procedures [...]
--- OUTSIDE RECORDS SUMMARY | 2018-08-12 11:26 | XMS REPORT ---
Author Author MARIA GRAHAM Organization [facility] Address [address] [place] [address] Care Team Providers Care Cryptologic Technician Operator/Analyst Name Role Phone MARIA GRAHAM Unavailable PROBLEMS Type Condition ICD9-CM Code WMH17-IP Code Onset Dates Condition Status SNOMED Code Problem Diabetes type 2, controlled E11.9 Active 20355576 Problem Diabetes type 2, uncontrolled E11.65 Active 159236040 Problem Hypertension, benign I10 Active 48319257 Problem Primary insomnia F51.01 Active 264006052 Problem Mood disorder F39 Active 75853957 Problem Primary osteoarthritis involving multiple joints M15.0 Active 168408273 Problem 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 Active 672647595 Problem Type 2 diabetes mellitus with diabetic polyneuropathy E11.42 Active 79790062 Problem Type 2 diabetes mellitus with hyperglycemia E11.65 Active [id number] Problem Type 2 diabetes mellitus without complications E11.9 Active 183214683 Problem termite treater helper current use of insulin Z79.4 Active [id number] ALLERGIES No Information ENCOUNTERS Encounter Location Date Diagnosis [facility] [id number] [place] [address] 19742- 1720 Apr, [facility] [id number] [place] [address] 36679- 2730 February, [facility] [id number] [place] [address] 58382- 2023 Jan, [facility] [id number] [place] [address] 93912- 6671 15 Nov, 2017 Controlled type 2 diabetes mellitus without complication, without long-term current use of insulin E11.9 [facility] [id number] [place] [address] 16237- 8580 Nov, [facility] [id number] [place] [address] 96419- 7210 Oct, [facility] [address], [place] [address] 9180 Oct, Type 2 diabetes mellitus with diabetic polyneuropathy E11.42 and Primary osteoarthritis involving multiple joints M15.0 [facility] [address] [address] 3774 Oct, Type 2 diabetes mellitus with diabetic polyneuropathy E11.42 ; Primary osteoarthritis involving multiple joints M15.0 and Viral upper respiratory tract infection J06.9 [facility] [address] [address] 5876 Sep, Diabetes type 2, controlled E11.9 [facility] [address] [address] 2711 Jun, Uncontrolled diabetes mellitus type 2 without complications , unspecified long term care pharmacist insulin use status E11.65 [place] [address] [address] 4713 Jun, Bronchitis J40 [facility] [address] [address] 0588 May, Controlled type 2 diabetes mellitus without complication, without long-term current use of insulin E11.9 [facility] [address] [address]- 6763 Apr, Type 2 diabetes mellitus without complications E11.9 [facility] [address] [address]- 7492 Apr, [facility] [address] [address]- 7218 Jan, Controlled type 2 diabetes mellitus without complication, without long-term current use of insulin E11.9 [facility] [address] [address]- 5725 Dec, Diabetes type 2, controlled E11.9 and Type 2 diabetes mellitus with diabetic polyneuropathy E11.42 [facility] [id number] [place] [address] 15055- 1393 Nov, Diabetes type 2, controlled E11.9 and 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 [address] 29205 -1685 Aug, Bronchitis J40 [facility] [id number] [place] [address] 31292- 1611 Aug, [facility] [address] 73974- 7264 Jul, Upper respiratory tract infection, unspecified type J06.9 ; Type 2 diabetes mellitus without complications E11.9 and halfway current use of insulin Z79.4 [place] [id number] [place] [address] 86313- 5069 Jul, [facility] [id number] [place] [address] 24143- 2439 Jun, Type 2 diabetes mellitus with diabetic polyneuropathy E11.42 ; Type 2 diabetes mellitus with hyperglycemia E11.65 and Encounter for immunization Z23 [facility] [id number] [place] [address] 14691- 9657 May, Controlled type 2 diabetes mellitus without complication, without long-term current use of insulin E11.9 [facility] [id number] [place] [address] 84731- 8353 Apr, Diabetes type 2, uncontrolled E11.65 [facility] [id number] [place] [address] 18062- 4986 Mar, [place] [id number] [place] [address] 74226- 5709 Mar, Controlled type 2 diabetes mellitus without complication, without long-term current use of insulin E11.9 [place] [id number] [place] [address] 80470- 4641 February, Diabetes type 2, controlled E11.9 [place] [address] 76292- 3790 February, Uncontrolled diabetes mellitus type 2 without complications , unspecified residential insulin use status E11.65 and Chest pain, unspecified type R07.9 [place] [address] 22249- 6052 February, Diabetes type 2, uncontrolled E11.65 [place] [address] 02279- 7054 Jan, [place] [address] 88437- 2697 Jan, Coughing R05 ; Tinea versicolor B36.0 and Diabetes type 2, uncontrolled E11.65 [place] [id number] [place] [address] 77602- 6047 Dec, Cough R05 [place] [id number] [place] [address] 28527- 3268 Nov, [place] [id number] [place] [address] 89351- 4315 Oct, Unspecified mood [affective] disorder F39 [place] [id number] [place] [address] 46934- 1149 Oct, Cough R05 and Diabetes type 2, controlled E11.9 [place] [id number] [place] [address] 03114- 2559 Oct, Cough R05 [place] [id number] [place] [address] 43323- 8287 06 Gopal, 2016 Abdominal pain R10.9 ; Cough R05 ; PND (post-nasal drip) R09.82 and GERD (gastroesophageal reflux disease) K21.9 [facility] [address] 93229- 5627 Sep, Unspecified mood [affective] disorder F39 [facility] [address] 28098- 1915 Aug, [facility] [address] 32405- 7904 Aug, [facility] [address] 75700- 9224 Aug, [facility] [address] 07542- 8066 Aug, [facility] [address] 33773- 6629 Aug, Unspecified mood [affective] disorder F39 [facility] [id number] [place] [address] 62568- 1312 Aug, [facility] [address] 90662- 8870 Aug, [facility] [id number] [place] [address] 86253- 9081 Jul, Tooth abscess K04.7 [facility] [address] 50382- 4830 Jul, Diabetes type 2, controlled E11.9 [facility] [id number] [place] [address] 25335- 1337 Jul, [facility] [address] 23241- 7473 Jul, [facility] [id number] [place] [address] 04841- 1823 Jun, [facility] [address] 12489- 2286 30 Jun, 2015 Diabetes type 2, controlled 250.00 [facility] [address], [place] [address]- 3553 17 Jun, 2015 [facility] [address] [place] [address] 65784- 2149 15 Jun, 2015 Affective disorder 296.90 [facility] [id number] [place] [address] 97494- 4806 Jun, [facility] [id number] [place] [address] 76220- 3835 May, Affective disorder 296.90 [facility] [id number] [place] [address] 04957- 3780 May, Diabetes mellitus 250.00 [facility] [id number] [place] [address] 237582- 6810 Apr, Episodic mood disorder 296.90 [facility] [address] [place] [address] 73724- 1856 Mar, Episodic mood disorder 296.90 [facility] [id number] [place] [address] 02691- 4546 February, Unspecified episodic mood disorder 296.90 [facility] [address] [place] [address] 49432- 7599 14 Jan, 2015 [facility] [address] [address]- 2448 Jan, [facility] [address], [place] [address]- 3910 Dec, [facility] [id number] [place] [address] 35027- 7538 Dec, [facility] [address], [place] [address] 2546 Dec, [facility] [address] [place] [address] 46732- 8700 Dec, [facility] [place] [facility] [address] [id number] [place] [address]- 9730 Dec, [facility] [place] [facility] [address] [id number] [place] [address]- 3835 Dec, [facility] [place] [facility] [address] [id number] [place] [address]- 2094 Dec, [facility] [place] [facility] [address] [id number] [place] [address]- 5217 Dec, [facility] [place] [facility] [address] [id number] [place] [address]- 9933 Nov, [facility] [place] [facility] [address] [id number] [place] [address]- 8182 Nov, 2014 [facility] [place] [facility] [address] [facility] [id number] [place] [address]- 7695 Nov, [facility] [place] [facility] [address] [id number] [place] [address]- 3259 Nov, [facility] [place] [facility] [address] [id number] [place] [address]- 9976 Nov, [facility] [place] [facility] [address] [facility] [id number] [place] [address]- 1215 Nov, [facility] [place] [facility] [address] [id number] [address]- 1400 Oct, [facility] [place] [facility] [address] [id number] [address]- 2828 Oct, [facility] [place] [facility] [address] [id number] [place] [address]- 8703 Oct, [facility] [place] [facility] [address] [id number] [place] [address]- 4802 Oct, [facility] [place] [facility] [address] [facility] [id number] [place] [address]- 1871 Oct, [facility] [place] [facility] [address] [id number] [place] [address]- 0387 Oct, [facility] [place] [facility] [address] [id number] [place] [address]- 8997 Oct, [facility] [place] [facility] [address] [id number] [place] [address]- 3426 Oct, [facility] [place] [facility] [address] [id number] [place] [address]- 3537 Oct, [facility] [place] [facility] [address] [id number] [place] [address]- 0112 Oct, [facility] [place] [facility] [address] [id number] [place] [address]- 6307 Oct, [facility] [place] [facility] [address] [id number] [place] [address]- 2044 Oct, [facility] [place] [facility] [address] [id number] [place] [address]- 8399 Oct, [facility] [place] [facility] [address] [id number] [place] [address]- 3932 Oct, [facility] [place] [facility] [address] [id number] [place] [address]- 9791 Oct, [facility] [place] [facility] [address] [id number] [place] [address]- 5674 Oct, [facility] [place] [facility] [address] [id number] [place] [address]- 8743 Oct, [facility] [place] [facility] [address] [id number] [place] [address]- 4279 Oct, [facility] [place] [facility] [address] [id number] [place] [address]- 8489 Sep, [facility] [place] [facility] [address] [id number] [place] [address]- 5491 Sep, [facility] [place] [facility] [address] [id number] [place] [address]- 6725 Sep, [facility] [place] [facility] [address] [id number] [place] 8740 Sep, [facility] [place] [facility] [address] [id number] [place] 3078 Sep, [facility] [place] [facility] [address] [id number] [place] [address]- 8374 Sep, [facility] [place] [facility] [address] [id number] [place] [address]- 7681 Aug, [facility] [place] [facility] [address] [id number] [place] [address]- 9903 Aug, [facility] [place] [facility] [address] [id number] [place] [address]- 3918 Aug, [facility] [place] [facility] [address] [id number] [place] [address]- 4719 Aug, [facility] [place] [facility] [address] [id number] [place] [address]- 5966 Jul, [facility] [place] [facility] [address] [id number] [place] [address]- 7128 Jul, [facility] [place] [facility] [address] [id number] [place] [address]- 5639 Jul, [facility] [place] [facility] [address] [id number] [place] [address]- 3829 Jul, [facility] [place] [facility] [address] [id number] [place] [address]- 3108 Jul, [facility] [place] [facility] [address] [id number] [place] [address]- 4630 Jul, [facility] [place] [facility] [address] [id number] [place] 2045 Jul, [facility] [place] [facility] [address] [id number] [place] [address]- 3867 Jul, [facility] [place] [facility] [address] [id number] [place] [address]- 2306 May, [facility] [place] [facility] [address] [id number] [place] [address]- 7680 May, [facility] [place] [facility] [address] [id number] [place] [address]- 5051 Apr, [facility] [place] [facility] [address] [id number] [place] [address]- 4960 Apr, [facility] [place] [facility] [address] [id number] [place] [address]- 3564 Mar, [facility] [place] [facility] [address] [id number] [place] [address]- 7259 Mar, [facility] [place] [facility] [address] [id number] [place] [address]- 3167 Mar, [facility] [place] [facility] [address] [id number] [place] [address]- 8583 Mar, [facility] [place] [facility] [address] [id number] [place] [address]- 6751 Mar, [facility] [place] [facility] [address] [id number] [place] [address]- 0644 Mar, [facility] [place] [facility] [address] [id number] [place] [address]- 1209 Nov, [facility] [place] [facility] [address] [id number] [place] [address]- 1799 Nov, [facility] [place] [facility] [address] [id number] [place] [address]- 2178 Jun, [facility] [place] [facility] [address] [id number] [place] [address]- 4371 May, [facility] [place] [facility] [address] [id number] [place] [address]- 3388 Apr, [facility] [place] [facility] [address] [id number] [place] [address]- 1810 Apr, [facility] [place] [facility] [address] [id number] [place] [address]- 3059 Mar, [facility] [address] [id number] [place] [address]- 6504 Mar, [facility] [place] [facility] [address] [id number] [place] [address] 2546 Mar, [facility] [address] [id number] [place] [address]- 5954 February, [facility] [address] [id number] [place] [address]- 4099 Dec, [facility] [address] [id number] [place] [address]- 0786 Nov, [facility] [address] [id number] [place] [address]- 1017 Oct, [facility] [address] [id number] [place] [address]- 9124 Oct, [facility] [address] [id number] [place] [address]- 9622 Oct, [facility] [address] [id number] [place] [address]- 7255 Oct, [facility] [address] [id number] [place] [address]- 5007 Sep, [facility] [address] [id number] [place] [address]- 7587 Sep, [facility] [address] [id number] [place] [address]- 2252 Sep, [facility] [place] [facility] [address] [id number] [place] [address]- 8496 Sep, [facility] [place] [facility] [address] [id number] [place] [address]- 6926 Sep, [facility] [address] [id number] [place] [address]- 7555 Sep, [facility] [address] [place] [address]- 2246 Sep, [facility] [address] [place] [address] 46826- 7956 Sep, [facility] [address] [place] [address] 96812- 4725 Sep, [facility] [id number] [place] [address] 35346- 8802 Sep, [facility] [address] [place] [address] 05423- 8595 Sep, [facility] [id number] [place] [address] 82053- 3065 Aug, [facility] [id number] [place] [address] 70290- 5361 Aug, [facility] [address] [place] [address] [id number]- [phone] Aug, [facility] [place] [id number] [place] [address] [id number] Jul, [facility] [place] [id number] [place] [address] [id number]- [phone] Jul, [facility] [place] [id number] [address] Dec, [facility] [place] [id number] [address] Aug, [facility] [place] [address] [id number] [address] Mar, IMMUNIZATIONS No Known Immunizations SOCIAL HISTORY Never Assessed REASON FOR VISIT Hydrocodone note PLAN OF CARE VITAL SIGNS MEDICATIONS Medication Instructions Dosage Frequency Start Date End Date Duration Status Axson 5-325 MG Orally every 6 hrs 1 tablet as needed 6h Nov, Dec, 28 days Active RESULTS No Results PROCEDURES No [...]
--- OUTSIDE RECORDS SUMMARY | 2018-08-12 11:27 | XMS REPORT ---
Author Author MARIA GRAHAM Organization [facility] Address [address] [place] [address] Care Team Providers Care Success Coach Name Role Phone MARIA GRAHAM Unavailable PROBLEMS Type Condition ICD9-CM Code QOC35-ZN Code Onset Dates Condition Status SNOMED Code Problem Diabetes type 2, controlled E11.9 Active 83187190 Problem Diabetes type 2, uncontrolled E11.65 Active 387856125 Problem Hypertension, benign I10 Active 25155182 Problem Primary insomnia F51.01 Active 389413804 Problem Mood disorder F39 Active 75910640 Problem Primary osteoarthritis involving multiple joints M15.0 Active 748589598 Problem 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 Active 022410439 Problem Type 2 diabetes mellitus with diabetic polyneuropathy E11.42 Active 73427652 Problem Type 2 diabetes mellitus with hyperglycemia E11.65 Active 198012132077914 Problem Type 2 diabetes mellitus without complications E11.9 Active 459267768 Problem intermediate designer current use of insulin Z79.4 Active 211610070 ALLERGIES No Information ENCOUNTERS Encounter Location Date Diagnosis [facility] [id number] [place] [address] 65445- 6381 Mar, [facility] [id number] [place] [address] 97217- 6426 February, [facility] [id number] [place] [address] 96182- 4312 Jan, [facility] [id number] [place] [address] 88027- 4958 15 Nov, 2017 Controlled type 2 diabetes mellitus without complication, without long-term current use of insulin E11.9 [facility] [id number] [place] [address] 46420- 1697 02 Nov, 2017 [facility] [id number] [place] [address] 91909- 1335 Oct, [facility] [address] [address] 5847 Oct, Type 2 diabetes mellitus with diabetic polyneuropathy E11.42 and Primary osteoarthritis involving multiple joints M15.0 [facility] [address] [address] 2854 Oct, Type 2 diabetes mellitus with diabetic polyneuropathy E11.42 ; Primary osteoarthritis involving multiple joints M15.0 and Viral upper respiratory tract infection J06.9 [facility] [address] [address] 68[address] Sep, Diabetes type 2, controlled E11.9 [facility] [address] [address] 6712 Jun, Uncontrolled diabetes mellitus type 2 without complications , 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 [place] [address] [address] 3052 Jun, Bronchitis J40 [facility] [address] [address] 4546 May, Controlled type 2 diabetes mellitus without complication, without long-term current use of insulin E11.9 [facility] [address] [address] 4129 Apr, Type 2 diabetes mellitus without complications E11.9 [facility] [address] [address] 3661 Apr, [facility] [address] [address] 2040 Jan, Controlled type 2 diabetes mellitus without complication, without long-term current use of insulin E11.9 [facility] [address] [address] 2336 Dec, Diabetes type 2, controlled E11.9 and Type 2 diabetes mellitus with diabetic polyneuropathy E11.42 [facility] [id number] [place] [address] 48202- 2467 Nov, Diabetes type 2, controlled E11.9 and 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 [facility] [id number] [place] [address] 15407- 0700 Oct, [facility] [id number] [place] [address] 05261- 8145 Oct, Diabetes type 2, controlled E11.9 [facility] [address] 55295- 4809 Sep, Diabetes type 2, controlled E11.9 [facility] [address] 26[address] -5529 Aug, Bronchitis J40 [facility] [id number] [place] [address] 10905- 0424 Aug, [facility] [address] 47408- 8302 Jul, Upper respiratory tract infection, unspecified type J06.9 ; Type 2 diabetes mellitus without complications E11.9 and MCC current use of insulin Z79.4 [place] [facility] [id number] [place] [address] 32196- 7694 Jul, [facility] [id number] [place] [address] 97049- 3514 Jun, Type 2 diabetes mellitus with diabetic polyneuropathy E11.42 ; Type 2 diabetes mellitus with hyperglycemia E11.65 and Encounter for immunization Z23 [facility] [id number] [place] [address] 72440- 2256 May, Controlled type 2 diabetes mellitus without complication, without long-term current use of insulin E11.9 [facility] [id number] [place] [address] 78947- 1913 Apr, Diabetes type 2, uncontrolled E11.65 [facility] [id number] [place] [address] 35388- 1113 Mar, [place] [facility] [id number] [place] [address] 93583- 6735 Mar, Controlled type 2 diabetes mellitus without complication, without long-term current use of insulin E11.9 [facility] [id number] [place] [address] 71115- 6026 February, Diabetes type 2, controlled E11.9 [place] [address] 01923- 9799 February, Uncontrolled diabetes mellitus type 2 without complications , 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 and Chest pain, unspecified type R07.9 [place] [facility] [address] 89131- 2547 February, Diabetes type 2, uncontrolled E11.65 [place] [address] 73802- 5132 Jan, [place] [address] 14599- 6544 Jan, Coughing R05 ; Tinea versicolor B36.0 and Diabetes type 2, uncontrolled E11.65 [place] [facility] [id number] [place] [address] 87589- 2815 Dec, Cough R05 [place] [id number] [place] [address] 50694- 0678 Nov, [place] [id number] [place] [address] 76119- 7056 Oct, Unspecified mood [affective] disorder F39 [facility] [id number] [place] [address] 23654- 2661 Oct, Cough R05 and Diabetes type 2, controlled E11.9 [place] [id number] [place] [address] 15561- 0192 Oct, Cough R05 [place] [facility] [id number] [place] [address] 53064- 9776 06 Gopal, 2016 Abdominal pain R10.9 ; Cough R05 ; PND (post-nasal drip) R09.82 and GERD (gastroesophageal reflux disease) K21.9 [facility] [address] 72684- 0182 Sep, Unspecified mood [affective] disorder F39 [facility] [address] 61242- 8843 Aug, [facility] [address] 88072- 4133 Aug, [facility] [address] 49216- 5484 Aug, [facility] [address] 60416- 9537 Aug, [facility] [address] 68832- 0182 Aug, Unspecified mood [affective] disorder F39 [facility] [id number] [place] [address] 94485- 4545 Aug, [facility] [address] 85165- 8268 Aug, [facility] [id number] [place] [address] 48845- 9230 Jul, Tooth abscess K04.7 [facility] [address] 21771- 8162 Jul, Diabetes type 2, controlled E11.9 [facility] [id number] [place] [address] 29227- 3565 Jul, [facility] [address] 99222- 8865 Jul, [facility] [id number] [place] [address] 22318- 2026 Jun, Diabetes type 2, controlled 250.00 [facility] [address] [place] [address]- 4630 30 Jun, 2015 [facility] [address] [address]- 2005 17 Jun, 2015 [facility] [address] [address]- 8649 15 Jun, 2015 Affective disorder 296.90 [facility] [address] [place] [address] 02290- 0092 02 Jun, 2015 [facility] [id number] [place] [address] 18027- 7258 May, Affective disorder 296.90 [facility] [id number] [place] [address] 15633- 8967 May, Diabetes mellitus 250.00 [facility] [address] [place] [address] 504752- 8798 Apr, Episodic mood disorder 296.90 [facility] [address] 0546 Mar, Episodic mood disorder 296.90 [facility] [address] [place] [address] 78459- 5754 February, Unspecified episodic mood disorder 296.90 [facility] [address] [address]- 9872 14 Jan, 2015 [facility] [address] [address]- 7814 Jan, [facility] [address] [address]- 7381 Dec, [facility] [address] [address]- 4382 Dec, [facility] [address], [place] [address] 2546 Dec, [facility] [address], [place] [address]- 2958 Dec, [facility] [place] [facility] [address] [id number] [place] [address]- 7791 Dec, [facility] [place] [facility] [address] [id number] [place] [address]- 0442 Dec, [facility] [place] [facility] [address] [id number] [place] [address]- 5219 Dec, [facility] [place] [facility] [address] [id number] [place] [address]- 2693 Dec, [facility] [place] [facility] [address] [id number] [place] [address]- 2634 Nov, [facility] [place] [facility] [address] [id number] [place] [address]- 4771 Nov, 2014 [facility] [place] [facility] [address] [facility] [id number] [place] [address]- 9029 Nov, [facility] [place] [facility] [address] [id number] [place] [address]- 4789 Nov, [facility] [place] [facility] [address] [id number] [place] [address]- 0643 Nov, [facility] [place] [facility] [address] [facility] [id number] [place] [address]- 0787 Nov, [facility] [place] [facility] [address] [id number] [address]- 9300 Oct, [facility] [place] [facility] [address] [id number] [address]- 5895 Oct, [facility] [place] [facility] [address] [id number] [place] [address]- 8291 Oct, [facility] [place] [facility] [address] [id number] [place] [address]- 2468 Oct, [facility] [place] [facility] [address] [facility] [id number] [place] [address]- 9199 Oct, [facility] [place] [facility] [address] [id number] [place] [address]- 4211 Oct, [facility] [place] [facility] [address] [id number] [place] [address]- 2906 Oct, [facility] [place] [facility] [address] [id number] [place] [address]- 2168 Oct, [facility] [place] [facility] [address] [id number] [place] [address]- 8380 Oct, [facility] [place] [facility] [address] [id number] [place] [address]- 2989 Oct, [facility] [place] [facility] [address] [id number] [place] [address]- 0455 Oct, [facility] [place] [facility] [address] [id number] [place] [address]- 3746 Oct, [facility] [place] [facility] [address] [id number] [place] [address]- 8030 Oct, [facility] [place] [facility] [address] [id number] [place] [address]- 0160 Oct, [facility] [place] [facility] [address] [id number] [place] [address]- 7624 Oct, [facility] [place] [facility] [address] [id number] [place] [address]- 9716 Oct, [facility] [place] [facility] [address] [id number] [place] [address]- 9289 Oct, [facility] [place] [facility] [address] [id number] [place] [address]- 0706 Oct, [facility] [place] [facility] [address] [id number] [place] [address]- 2022 Sep, [facility] [place] [facility] [address] [id number] [place] [address]- 1230 Sep, [facility] [place] [facility] [address] [id number] [place] [address]- 0855 Sep, [facility] [place] [facility] [address] [id number] [place] 6039 Sep, [facility] [place] [facility] [address] [id number] [place] 2204 Sep, [facility] [place] [facility] [address] [id number] [place] [address]- 8477 Sep, [facility] [place] [facility] [address] [id number] [place] [address]- 6965 Aug, [facility] [place] [facility] [address] [id number] [place] [address]- 1935 Aug, [facility] [place] [facility] [address] [id number] [place] [address]- 6827 Aug, [facility] [place] [facility] [address] [id number] [place] [address]- 5879 Aug, [facility] [place] [facility] [address] [id number] [place] [address]- 8582 Jul, [facility] [place] [facility] [address] [id number] [place] [address]- 0610 Jul, [facility] [place] [facility] [address] [id number] [place] [address]- 7421 Jul, [facility] [place] [facility] [address] [id number] [place] [address]- 9158 Jul, [facility] [place] [facility] [address] [id number] [place] [address]- 7027 Jul, [facility] [place] [facility] [address] [id number] [place] [address]- 3529 Jul, [facility] [place] [facility] [address] [id number] [place] 3655 Jul, [facility] [place] [facility] [address] [id number] [place] [address]- 1585 Jul, [facility] [place] [facility] [address] [id number] [place] [address]- 8291 May, [facility] [place] [facility] [address] [id number] [place] [address]- 1969 May, [facility] [place] [facility] [address] [id number] [place] [address]- 9111 Apr, [facility] [place] [facility] [address] [id number] [place] [address]- 8111 Apr, [facility] [place] [facility] [address] [id number] [place] [address]- 1311 Mar, [facility] [place] [facility] [address] [id number] [place] [address]- 2820 Mar, [facility] [place] [facility] [address] [id number] [place] [address]- 7846 Mar, [facility] [place] [facility] [address] [id number] [place] [address]- 1571 Mar, [facility] [place] [facility] [address] [id number] [place] [address]- 1998 Mar, [facility] [place] [facility] [address] [id number] [place] [address]- 4023 Mar, [facility] [place] [facility] [address] [id number] [place] [address]- 4962 Nov, [facility] [place] [facility] [address] [id number] [place] [address]- 7518 Nov, [facility] [place] [facility] [address] [id number] [place] [address]- 6478 Jun, [facility] [place] [facility] [address] [id number] [place] [address]- 7673 May, [facility] [place] [facility] [address] [id number] [place] [address]- 7017 Apr, [facility] [place] [facility] [address] [id number] [place] [address]- 4042 Apr, [facility] [place] [facility] [address] [id number] [place] [address]- 6543 Mar, [facility] [address] [id number] [place] [address]- 5357 Mar, [facility] [place] [facility] [address] [id number] [place] [address] 2546 Mar, [facility] [address] [id number] [place] [address]- 7939 February, [facility] [address] [id number] [place] [address]- 7360 Dec, [facility] [address] [id number] [place] [address]- 8581 Nov, [facility] [address] [id number] [place] [address]- 3052 Oct, [facility] [address] [id number] [place] [address]- 8937 Oct, [facility] [address] [id number] [place] [address]- 5363 Oct, [facility] [address] [id number] [place] [address]- 0493 Oct, [facility] [address] [id number] [place] [address]- 9855 Sep, [facility] [address] [id number] [place] [address]- 5289 Sep, [facility] [address] [id number] [place] [address]- 4039 Sep, [facility] [place] [facility] [address] [id number] [place] [address]- 6626 Sep, [facility] [place] [facility] [address] [id number] [place] [address]- 7386 Sep, [facility] [address] [id number] [place] [address]- 8980 Sep, [facility] [address] [address]- 2937 Sep, [facility] [address] [address]- 7156 Sep, [facility] [address] [address]- 2606 Sep, [facility] [id number] [place] [address] 33728- 3166 Sep, [facility] [address] [place] [address] 71171- 0769 Sep, [facility] [id number] [place] [address] 84320- 2596 Aug, [facility] [address] [place] [address] 53907- 9622 Aug, [facility] [address] [place] [address] 99026- 1245 Aug, [facility] [address] [place] [address] 54135- 6628 Jul, [facility] [address] [address]- 1306 Jul, [facility] [address] [address]- 4190 Dec, [facility] [address] [address]- 6234 Aug, [facility] [id number] [address]- 2136 Mar, IMMUNIZATIONS No Known Immunizations SOCIAL HISTORY Never Assessed REASON FOR VISIT Refill Request PLAN OF CARE VITAL SIGNS MEDICATIONS Medication Instructions Dosage Frequency Start Date End Date Duration Status Terbinafine HCl 1 % Externally Twice a day 1 application to affected area 12h Sep, Active RESULTS No Results PROCEDURES No Known [...]
--- OUTSIDE RECORDS SUMMARY | 2018-08-12 11:27 | XMS REPORT ---
Author Author MARIA GRAHAM Organization [employer] Address Unknown Phone Unavailable Care Team Providers Care Account Receivable Associate Name Role Phone MARIA GRAHAM CP Unavailable Allergies, Adverse Reactions, Alerts Substance Reaction Event Type GlipiZIDE Info Not Available Drug Allergy Problems Problem Type Condition ICD-9 Code Onset Dates Condition Status Problem Essential hypertension, benign 401.1 Active Assessment Diabetes mellitus 250.00 Active Problem Hypoglycemia, unspecified 251.2 Active Problem Pain in joint, forearm 719.43 Active Problem Unspecified episodic mood disorder 296.90 Active Problem Generalized anxiety disorder 300.02 Active Problem Renal and perinephric abscess 590.2 Active Problem Insomnia, unspecified 780.52 Active Problem Unspecified hemorrhoids without mention of complication 455.6 Active Medications Medication Code System Code Instructions Start Date End Date Status Dosage Restoril [facility] [address]-28 22.5 mg December 11, 2014 take 1 capsule ( 22.5 mg) by oral route once daily at bedtime PRN Fluoxetine HCl [facility] [id number] 40 MG TAKE ONE CAPSULE BY MOUTH IN THE MORNING Prozac [facility] [address]-86 40 mg Oct 23, 2014 take 1 capsule (40 mg ) by oral route once daily in the morning Daniel Contour Test [facility] [address]-23 1 with lancets 2 times a day May 30, 2015 as directed Lisinopril [facility] 03493496870 5 MG TAKE ONE TABLET BY MOUTH DAILY Procedures Procedure Coding System Code Date MICROALBUMIN, SEMIQUANT CPT-4 88743 May 30, 2015 Office Visit, Est Pt., Level 3 CPT-4 09947 May 30, 2015 GLYCATED HEMOGLOBIN TEST CPT-4 97150 May 30, 2015 MICROALBUMIN, QUANTITATIVE CPT-4 87588 May 30, 2015 Vital Signs Date/Time: May 30, 2015 Temperature 97.2 F Weight 228.5 lbs Height 68 in BMI 34.74 Index Blood Pressure Diastolic 88 mmHg Blood Pressure Systolic 120 mmHg Cardiac Monitoring Heart Rate 92 bpm Results Name Result Date Reference Range Unit Abnormality Flag A1C (IN HOUSE) Summary Purpose [employer] Submission
--- OUTSIDE RECORDS SUMMARY | 2018-08-12 11:27 | XMS REPORT ---
Author Author MARIA GRAHAM Organization [facility] Address [address] [place] [address] Care Team Providers Care Cab Starter Name Role Phone GLADYS MARIA Unavailable PROBLEMS Type Condition ICD9-CM Code VPY89-CT Code Onset Dates Condition Status SNOMED Code Problem Diabetes type 2, controlled E11.9 Active 48643052 Problem Diabetes type 2, uncontrolled E11.65 Active 821056590 Problem Hypertension, benign I10 Active 49532479 Problem Primary insomnia F51.01 Active 649848697 Problem Mood disorder F39 Active 64127801 Problem Primary osteoarthritis involving multiple joints M15.0 Active 625509010 Problem 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 Active 625250922 Problem Type 2 diabetes mellitus with diabetic polyneuropathy E11.42 Active 16200919 Problem Type 2 diabetes mellitus with hyperglycemia E11.65 Active 884199731129013 Problem Type 2 diabetes mellitus without complications E11.9 Active 675079865 Problem 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 684009667 ALLERGIES No Information ENCOUNTERS Encounter Location Date Diagnosis [facility] [id number] [place] [address] 11892- 6151 Nov, Controlled type 2 diabetes mellitus without complication, without long-term current use of insulin E11.9 [facility] [id number] [place] [address] 24915- 9715 Nov, [facility] [id number] [place] [address] 09639- 2364 Oct, [facility] [facility] [id number] [place] [address] 15528- 5780 Oct, Type 2 diabetes mellitus with diabetic polyneuropathy E11.42 and Primary osteoarthritis involving multiple joints M15.0 [facility] [id number] [place] [address] 53095- 8824 Oct, Type 2 diabetes mellitus with diabetic polyneuropathy E11.42 ; Primary osteoarthritis involving multiple joints M15.0 and Viral upper respiratory tract infection J06.9 [facility] [id number] [place] [address] 41963- 7175 Sep, Diabetes type 2, controlled E11.9 [facility] [id number] [address] 3139 Jun, Uncontrolled diabetes mellitus type 2 without complications , unspecified custodial insulin use status E11.65 [facility] [id number] [place] [address] 79251- 6167 Jun, Bronchitis J40 [facility] [id number] [place] [address] 63697- 0106 May, Controlled type 2 diabetes mellitus without complication, without long-term current use of insulin E11.9 [facility] [id number] [place] [address] 96456- 6954 Apr, Type 2 diabetes mellitus without complications E11.9 [facility] [id number] [place] [address] 87103- 3640 Apr, [facility] [id number] [place] [address] 85385- 0054 Jan, Controlled type 2 diabetes mellitus without complication, without long-term current use of insulin E11.9 [facility] [facility] [address] [address] 0411 Dec, Diabetes type 2, controlled E11.9 and Type 2 diabetes mellitus with diabetic polyneuropathy E11.42 [facility] [address] [address] 5178 Nov, Diabetes type 2, controlled E11.9 and 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 [facility] [address] [address] 12[address] Oct, [facility] [id number] [place] [address] 19949- 0335 Oct, Diabetes type 2, controlled E11.9 [facility] [address] [address] 3174 Sep, Diabetes type 2, controlled E11.9 [facility] [address] [address] Aug, Bronchitis J40 [facility] [id number] [place] [address] 63880- 9573 Aug, [facility] [id number] [place] [address] 85244- 2031 Jul, Upper respiratory tract infection, unspecified type J06.9 ; Type 2 diabetes mellitus without complications E11.9 and [facility] current use of insulin Z79.4 [place] [id number] [place] [address] 49554- 6111 Jul, [facility] [id number] [place] [address] 60698- 5966 Jun, Type 2 diabetes mellitus with diabetic polyneuropathy E11.42 ; Type 2 diabetes mellitus with hyperglycemia E11.65 and Encounter for immunization Z23 [facility] [id number] [place] [address] 83386- 3792 May, Controlled type 2 diabetes mellitus without complication, without long-term current use of insulin E11.9 [facility] [address] [address]- 1413 Apr, Diabetes type 2, uncontrolled E11.65 [facility] [address] [address]- 0602 Mar, [facility] [id number] [place] [address] 30012- 8204 Mar, Controlled type 2 diabetes mellitus without complication, without long-term current use of insulin E11.9 [facility] [address] [address]- 6556 February, Diabetes type 2, controlled E11.9 [facility] [id number] [place] [address] 26031- 5446 February, Uncontrolled diabetes mellitus type 2 without complications , unspecified custodial insulin use status E11.65 and Chest pain, unspecified type R07.9 [facility] [facility] [id number] [place] [address] 61544- 9660 February, Diabetes type 2, uncontrolled E11.65 [facility] [id number] [place] [address] 07861- 4005 Jan, [facility] [id number] [place] [address] 70155- 7485 Jan, Coughing R05 ; Tinea versicolor B36.0 and Diabetes type 2, uncontrolled E11.65 [place] [id number] [place] [address] 36149- 9408 Dec, Cough R05 [place] [id number] [place] [address] 48281- 8681 Nov, [facility] [id number] [place] [address] 19777- 4745 Oct, Unspecified mood [affective] disorder F39 [place] [facility] [id number] [place] [address] 85785- 8473 Oct, Cough R05 and Diabetes type 2, controlled E11.9 [place] [id number] [place] [address] 50792- 8005 Oct, Cough R05 [place] [id number] [place] [address] 72335- 6099 Oct, Abdominal pain R10.9 ; Cough R05 ; PND (post-nasal drip) R09.82 and GERD (gastroesophageal reflux disease) K21.9 [place] [id number] [place] [address] 53966- 6306 Sep, Unspecified mood [affective] disorder F39 [place] [id number] [place] [address] 02475- 7144 Aug, [facility] [address] [address]- 6080 Aug, [facility] [id number] [place] [address] 51766- 2038 Aug, [facility] [id number] [place] [address] 99962- 4056 Aug, [facility] [id number] [place] [address] 56714- 1141 Aug, Unspecified mood [affective] disorder F39 [facility] [id number] [place] [address] 04133- 6751 Aug, [facility] [id number] [place] [address] 47080- 8635 Aug, [facility] [id number] [place] [address] 53067- 5053 Jul, Tooth abscess K04.7 [facility] [id number] [place] [address] 68481- 5048 Jul, Diabetes type 2, controlled E11.9 [facility] [id number] [place] [address] 88063- 2397 Jul, [facility] [id number] [place] [address] 23540- 0227 Jul, [facility] [id number] [place] [address] 80999- 7123 Jun, [facility] [id number] [place] [address] 86917- 1110 Jun, Diabetes type 2, controlled 250.00 [facility] [id number] [place] [address] 18622- 9418 17 Jun, 2015 [facility] [id number] [place] [address] 01052- 3459 15 Jun, 2015 Affective disorder 296.90 [facility] [address] [address]- 2546 Jun, [facility] [address] [address]- 9116 May, Affective disorder 296.90 [facility] [address] [address]- 0426 May, Diabetes mellitus 250.00 [facility] [id number] [place] [address] 38927- 2084 Apr, Episodic mood disorder 296.90 [facility] [address] [address]- 2671 Mar, Episodic mood disorder 296.90 [facility] [address] [address] 2546 February, Unspecified episodic mood disorder 296.90 [facility] [address] [address]- 8571 Jan, [facility] [address] [address]- 2037 Jan, [facility] [address] [address]- 4553 Dec, [facility] [address] [address]- 0276 Dec, [facility] [address] [address]- 2546 Dec, [facility] [address] [address]- 2546 Dec, [facility] [address] [address]- 2546 Dec, [facility] [address] [address]- 2546 Dec, [facility] [address] [address]- 254 Dec, [facility] [place] [facility] [address] [id number] [place] [address]- 7313 Dec, [facility] [place] [facility] [address] [id number] [place] [address]- 0710 Nov, [facility] [place] [facility] [address] [id number] [place] [address]- 3585 Nov, [facility] [place] [facility] [address] [id number] [place] [address]- 4028 Nov, [facility] [place] [facility] [address] [id number] [place] [address]- 7419 Nov, [facility] [place] [facility] [address] [id number] [place] [address]- 8178 Nov, [facility] [place] [facility] [address] [id number] [place] [address]- 5608 Nov, [facility] [place] [facility] [address] [id number] [address]- 8493 Oct, [facility] [place] [facility] [address] [id number] [place] [address]- 3676 Oct, [facility] [place] [facility] [address] [id number] [place] [address]- 8697 Oct, [facility] [place] [facility] [address] [id number] [address]- 8817 Oct, [facility] [place] [facility] [address] [id number] [address]- 9317 Oct, [facility] [place] [facility] [address] [id number] [place] [address]- 9255 Oct, [facility] [place] [facility] [address] [id number] [address]- 0078 Oct, [facility] [place] [facility] [address] [id number] [place] [address]- 6808 Oct, [facility] [place] [facility] [address] [id number] [place] [address]- 0576 15 Oct, 2014 [facility] [address] [id number] [place] [address]- 9914 15 Oct, 2014 [facility] [place] [facility] [address] [id number] [place] [address]- 8422 Oct, [facility] [place] [facility] [address] [id number] [place] [address]- 7298 Oct, [facility] [place] [facility] [address] [id number] [place] [address]- 0031 Oct, [facility] [place] [facility] [address] [id number] [place] [address]- 2435 Oct, [facility] [place] [facility] [address] [id number] [place] [address]- 5147 Oct, [facility] [place] [facility] [address] [id number] [place] [address]- 8366 Oct, [facility] [place] [facility] [address] [id number] [place] [address]- 3272 Oct, [facility] [place] [facility] [address] [id number] [place] [address]- 2817 Oct, [facility] [place] [facility] [address] [facility] [id number] [place] [address]- 5545 08 Sep, 2014 [facility] [place] [facility] [address] [id number] [place] [address]- 0013 Sep, [facility] [place] [facility] [address] [id number] [place] [address]- 6784 Sep, [facility] [place] [facility] [address] [id number] [place] [address]- 6172 Sep, [facility] [place] [facility] [address] [id number] [place] [address]- 9851 Sep, [facility] [place] [facility] [address] [id number] [place] [address]- 3394 Sep, [facility] [place] [facility] [address] [id number] [place] [address]- 2306 Aug, [facility] [place] [facility] [address] [id number] [place] 8661 Aug, [facility] [place] [facility] [address] [id number] [place] [address]- 9107 Aug, [facility] [place] [facility] [address] [id number] [place] [address]- 8000 Aug, [facility] [place] [facility] [address] [id number] [place] [address]- 2491 Jul, [facility] [place] [facility] [address] [id number] [place] [address]- 1259 Jul, [facility] [place] [facility] [address] [id number] [place] [address]- 2343 Jul, [facility] [place] [facility] [address] [id number] [place] [address]- 6933 Jul, [facility] [place] [facility] [address] [id number] [place] [address]- 7107 Jul, [facility] [place] [facility] [address] [id number] [place] [address]- 6537 Jul, [facility] [place] [facility] [address] [id number] [place] [address]- 5448 Jul, [facility] [place] [facility] [address] [id number] [place] [address]- 2846 Jul, [facility] [place] [facility] [address] [id number] [place] [address]- 2462 May, [facility] [place] [facility] [address] [id number] [place] [address]- 1638 May, [facility] [place] [facility] [address] [id number] [place] [address]- 0674 Apr, [facility] [place] [facility] [address] [id number] [place] [address]- 8415 Apr, [facility] [place] [facility] [address] [id number] [place] [address]- 7376 Mar, [facility] [place] [facility] [address] [id number] [place] [address]- 3454 Mar, [facility] [place] [facility] [address] [id number] [place] [address]- 0527 Mar, [facility] [place] [facility] [address] [id number] [place] [address]- 0573 Mar, [facility] [place] [facility] [address] [id number] [place] [address]- 0210 Mar, [facility] [place] [facility] [address] [id number] [place] [address]- 1607 Mar, [facility] [place] [facility] [address] [id number] [place] [address]- 5156 Nov, [facility] [place] [facility] [address] [id number] [place] [address]- 2265 Nov, [facility] [place] [facility] [address] [id number] [place] [address]- 0349 Jun, [facility] [place] [facility] [address] [id number] [place] [address]- 2351 May, [facility] [place] [facility] [address] [id number] [place] [address]- 3403 Apr, [facility] [place] [facility] [address] [id number] [place] [address]- 6235 Apr, [facility] [place] [facility] [address] [id number] [place] [address]- 2454 Mar, [facility] [place] [facility] [address] [id number] [place] [address]- 7212 Mar, [facility] [place] [facility] [address] [id number] [place] [address]- 3643 Mar, [facility] [place] [facility] [address] [id number] [place] [address]- 2546 10 Feb, 2013 [facility] [address] [id number] [place] [address]- 3546 Dec, [facility] [place] [facility] [address] [id number] [place] [address]- 2546 Nov, [facility] [address] [id number] [place] [address]- 3806 Oct, [facility] [address] [id number] [place] [address]- 2546 Oct, [facility] [address] [id number] [place] [address]- 1496 Oct, [facility] [address] [id number] [place] [address]- 2546 Oct, [facility] [address] [id number] [place] [address]- 5133 Sep, [facility] [address] [id number] [place] [address]- 1841 Sep, [facility] [address] [id number] [place] [address]- 4246 Sep, [facility] [address] [id number] [place] [address]- 4716 Sep, [facility] [address] [id number] [place] [address]- 1796 Sep, [facility] [address] [id number] [place] [address]- 2546 Sep, [facility] [place] [facility] [address] [id number] [place] [address]- 1036 Sep, [facility] [place] [facility] [address] [id number] [place] [address]- 2546 04 Sep, 2012 [facility] [address] [id number] [place] [address]- 2546 Sep, [facility] [address] [facility] [id number] [address]- 7030 Sep, [facility] [address] [facility] [id number] [address]- 2726 Sep, [facility] [address] [facility] [id number] [address] Aug, [facility] [address] [facility] [id number] [address]- 0156 Aug, [facility] [address] [facility] [id number] [address]- 3053 Aug, [facility] [id number] [place] [address] 79986- 8266 Jul, [facility] [address] [address]- 9552 Jul, [facility] [address] [address]- 4646 Dec, [facility] [id number] [address]- 2000 Aug, [facility] [id number] [address]- 1404 Mar, IMMUNIZATIONS No Known Immunizations SOCIAL HISTORY Never Assessed REASON FOR VISIT Controlled Refill Request PLAN OF CARE VITAL SIGNS MEDICATIONS Medication Instructions Dosage Frequency Start Date End Date Duration Status [place] 5-325 MG Orally every 6 hrs 1 tablet as needed 6h May, 28 days Active RESULTS No Results PROCEDURES [...]
--- OUTSIDE RECORDS SUMMARY | 2018-08-12 11:27 | XMS REPORT ---
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 Assessment Type 2 diabetes mellitus without complications E11.9 Active Problem USP current use of insulin Z79.4 Active Problem Type 2 diabetes mellitus with diabetic polyneuropathy E11.42 Active Problem Type 2 diabetes mellitus without complications E11.9 Active Problem Mood disorder F39 Active Problem Primary insomnia F51.01 Active Problem Type 2 diabetes mellitus with hyperglycemia E11.65 Active Problem Diabetes type 2, uncontrolled E11.65 Active Medications Medication Code System Code Instructions Start Date End Date Status Dosage Blood Glucose Test Strip NDC 0 one touch ultra Once a day Jun 06, 2015 test blood sugar Blood Glucose Monitor NDC 0 one touch ultra as directed. February substitue per insurance Jun 06, 2015 test blood sugar Indomethacin [facility] [address]-60 50 mg May 03, 2014 1 capsule by Oral route 3 times per day Zithromax Z-Duncan [facility] [address]-31 250 MG Orally Once a day Jul 21, 2016 Jul 26, 2016 2 tablets on the first day, then 1 tablet daily for 4 days Ativan [facility] [address]-85 0.5 MG Orally 2 times a day February 25, 2016 1 tablet as needed Neurontin [facility] [address]-87 100 MG Orally 3 times a day Jun 19, 2016 1 capsule Allopurinol [facility] [id number] 100 MG TAKE ONE TABLET BY MOUTH THREE TIMES DAILY Daniel Contour Test [facility] [address]-74 1 with lancets 2 times a day May 30, 2015 as directed Levemir FlexTouch [facility] [address]-63 100 UNIT/ML Subcutaneous Once a day February 04, 2016 50 units [place] [facility] [address]-83 5-325 MG every 6 hrs March 24, 2014 1 tablet as needed Procedures Procedure Coding System Code Date Office Visit, Est Pt., Level 3 CPT-4 43958 Jul 21, 2016 Vital Signs Date/Time: Jul 21, 2016 Cardiac Monitoring Heart Rate 60 bpm Weight 218.1 lbs Height 68 in BMI 33.16 Index Blood Pressure Diastolic 86 mmHg Blood Pressure Systolic 128 mmHg Results No Known Results Summary Purpose eClinicalWorks Submission
--- OUTSIDE RECORDS SUMMARY | 2018-08-12 11:27 | XMS REPORT ---
Author Author AVTAR ONEILL [facility] eClinicalWorks Address Unknown Phone Unavailable Care Team Providers Care Saw Operator Name Role Phone AVTAR ONEILL CP Unavailable Allergies, Adverse Reactions, Alerts Substance Reaction Event Type MetFORMIN HCl ER diarrhea Drug Allergy GlipiZIDE low blood sugar Drug Allergy Problems Problem Type Condition Code Onset Dates Condition Status Assessment GERD (gastroesophageal reflux disease) K21.9 Active Problem Primary insomnia F51.01 Active Problem Hypertension, benign I10 Active Problem Mood disorder F39 Active Assessment Cough R05 Active Assessment PND (post-nasal drip) R09.82 Active Problem Diabetes type 2, controlled E11.9 Active Assessment Abdominal pain R10.9 Active Medications Medication Code System Code Instructions Start Date End Date Status Dosage Promethazine-Codeine [facility] [address]-88 6.25-10 MG/5ML Orally every 6 hrs Oct 10, 2015 5 [place] [address]-22 40 MG Orally Once a day Oct 10, 2015 1 capsule Zyrtec Allergy [facility] [address]-11 10 MG Orally Once a day Oct 10, 2015 Nov 09, 2015 1 Procedures Procedure Coding System Code Date URINALYSIS, AUTO, W/O SCOPE CPT-4 74171 Oct 10, 2015 X-RAY EXAM OF ABDOMEN CPT-4 25814 Oct 10, 2015 MEASURE BLOOD OXYGEN LEVEL CPT-4 19107 Oct 10, 2015 Office Visit, Est Pt., Level 4 CPT-4 63336 Oct 10, 2015 Vital Signs Date/Time: Oct 10, 2015 Temperature 98.5 F Weight 234.9 lbs Height 68 in Oximetry 97 % Blood Pressure Diastolic 96 mmHg Blood Pressure Systolic 120 mmHg Cardiac Monitoring Heart Rate 99 bpm BMI 35.71 Index Results Name Result Date Reference Range Unit Abnormality Flag UA LONG DIP (IN HOUSE) ----CARLOS negative 20151010 ----NIT negative 20151010 ----SG 1.015 20151010 ----KET negative 20151010 ----MEGHANN negative 20151010 ----GLU 3+ 20151010 ----Odor no 20151010 ----pH 6.0 20151010 ----BLO negative 20151010 ----URO 0.2 20151010 ----Protein trace 20151010 ----Lot # [id number] ----Exp date 20151010 ----Clarity clear 20151010 ----Color yellow 20151010 Summary Purpose eClinicalWorks Submission
--- OUTSIDE RECORDS SUMMARY | 2018-08-12 11:27 | XMS REPORT ---
Author Author [facility] eClinicalWorks Address Unknown Phone Unavailable Care Team Providers Care Metal Flow Coordinator Name Role Phone [facility] CP Unavailable Allergies No Known Allergies Problems Problem Type Condition ICD-9 Code Onset Dates Condition Status Problem Essential hypertension, benign 401.1 Active Assessment Affective disorder 296.90 Active Problem Hypoglycemia, unspecified 251.2 Active Problem Pain in joint, forearm 719.43 Active Problem Unspecified episodic mood disorder 296.90 Active Problem Generalized anxiety disorder 300.02 Active Problem Renal and perinephric abscess 590.2 Active Problem Insomnia, unspecified 780.52 Active Problem Unspecified hemorrhoids without mention of complication 455.6 Active Medications No Known Medications Procedures Procedure Coding System Code Date [facility] CPT-4 S0280 May 30, 2015 Results No Known Results Summary Purpose eClinicalWorks Submission
--- OUTSIDE RECORDS SUMMARY | 2018-08-12 11:28 | XMS REPORT ---
Author Author MARIA GRAHAM 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 Active 326720216 Problem Type 2 diabetes mellitus without complications E11.9 Active 736352715 Problem Type 2 diabetes mellitus with hyperglycemia E11.65 Active 239562168111244 Problem Diabetes type 2, uncontrolled E11.65 Active 030943030 Problem [facility] current use of insulin Z79.4 Active 156919988 Problem Type 2 diabetes mellitus with diabetic polyneuropathy E11.42 Active 49560042 ALLERGIES Substance Reaction Event Type Date Status MetFORMIN HCl ER diarrhea Drug Allergy Nov, Active GlipiZIDE low blood sugar Drug Allergy Nov, Active SOCIAL HISTORY Never Assessed PLAN OF CARE Activity Details Follow Up 4 Weeks Reason:diabetes 2 uncontrolled. VITAL SIGNS Height 68 in 2016-11-13 Weight 222.4 lbs 2016-11-13 Temperature 98.3 degrees Fahrenheit 2016-11-13 Heart Rate 80 bpm 2016-11-13 Respiratory Rate 20 2016-11-13 BMI 33.81 kg/m2 2016-11-13 Blood pressure systolic 122 mmHg 2016-11-13 Blood pressure diastolic 88 mmHg 2016-11-13 MEDICATIONS Medication Instructions Dosage Frequency Start Date End Date Duration Status Daniel Contour Test 1 with lancets 2 times a day as directed 12h May, Active Levemir FlexTouch 100 UNIT/ML Subcutaneous 2 TIMES A DAY 45 units 12h February, Active True Metrix Blood Glucose Test as directed Mar, Active Blood Glucose Monitor one touch ultra test blood sugar Jun, Active Allopurinol 100 MG TAKE ONE TABLET BY MOUTH THREE TIMES DAILY 30 Active Terbinafine HCl 1 % Externally Twice a day 1 application to affected area 12h Sep, Active Insulin Aspart 100 UNIT/ML Active Blood Glucose Test Strip one touch ultra test blood sugar 24h 02 Jun, 2015 Active Ativan 0.5 MG Orally 2 times a day 1 tablet as needed 12h 23 Feb, 2016 Active [place] 5-325 MG 1 tablet as needed 6h 20 Mar, 2014 Active Daniel Aspirin EC Low Dose 81 MG Orally Once a day 1 tablet 24h Active Indomethacin 50 mg 1 capsule by Oral route 3 times per day Apr, Active Neurontin 100 MG Orally 3 times a day 1 capsule 8h 15 Jun, 2016 Active RESULTS Name Result Date Reference Range MICROALBUMIN, URINE (IN HOUSE) 2016-11-13 MICROALBUMIN abnormal Lot # [id number] Exp date 11/2017 Clarity clear Color yellow ALB 80 CRE 50 A:C (IN HOUSE) 30-300 Control + Control Lot # Exp date MICROALBUMIN/CREATININE RATIO, URINE 2016-11-13 Creatinine, Urine 40.7 Not Estab. Microalbumin, Urine 81.6 Not Estab. Microalb/Creat Ratio 200.5 0.0-30.0 PROCEDURES Procedure Date Ordered Result Body Site MICROALBUMIN, SEMIQUANT Nov 13, 2016 LAB NOT BILLED BY [facility] Nov 13, 2016 IMMUNIZATIONS No Known Immunizations MEDICAL (GENERAL) HISTORY Type Description Date Medical [...]
--- OUTSIDE RECORDS SUMMARY | 2018-08-12 11:28 | XMS REPORT ---
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 Active 336967890 Problem Type 2 diabetes mellitus without complications E11.9 Active 608827981 Problem Type 2 diabetes mellitus with hyperglycemia E11.65 Active 113615054400501 Problem Diabetes type 2, uncontrolled E11.65 Active 458550122 Problem correction current use of insulin Z79.4 Active 856214406 Problem Type 2 diabetes mellitus with diabetic polyneuropathy E11.42 Active 98779151 ALLERGIES Substance Reaction Event Type Date Status MetFORMIN HCl ER diarrhea Drug Allergy Oct, Active GlipiZIDE low blood sugar Drug Allergy Oct, Active SOCIAL HISTORY No smoking Hx information available PLAN OF CARE Activity Details Follow Up 4 Weeks Reason:DIABETES VITAL SIGNS Height 68 in 2016-10-13 Weight 221 lbs 2016-10-13 Temperature 98.4 degrees Fahrenheit 2016-10-13 Heart Rate 76 bpm 2016-10-13 Respiratory Rate 18 2016-10-13 BMI 33.60 kg/m2 2016-10-13 Blood pressure systolic 124 mmHg 2016-10-13 Blood pressure diastolic 90 mmHg 2016-10-13 MEDICATIONS Medication Instructions Dosage Frequency Start Date End Date Duration Status Neurontin 100 MG Orally 3 times a day 1 capsule 8h 15 Jun, 2016 Active Indomethacin 50 mg 1 capsule by Oral route 3 times per day Apr, Active Allopurinol 100 MG TAKE ONE TABLET BY MOUTH THREE TIMES DAILY 30 Active Levemir FlexTouch 100 UNIT/ML Subcutaneous 2 TIMES A DAY 45 units 12h February, Active Daniel Contour Test 1 with lancets 2 times a day as directed 12h May, Active Blood Glucose Test Strip one touch ultra test blood sugar 24h Jun, Active [place] 5-325 MG 1 tablet as needed 6h Mar, Active Ativan 0.5 MG Orally 2 times a day 1 tablet as needed 12h February, Active Blood Glucose Monitor one touch ultra test blood sugar Jun, Active True Metrix Blood Glucose Test as directed Mar, Active Terbinafine HCl 1 % Externally Twice a day 1 application to affected area 12h Sep, Active RESULTS Name Result Date Reference Range A1C (IN HOUSE) 2016-10-13 A1C IN HOUSE 7.8 4.3 - 5.6 % Previous A1c 9.8 Lot [id number] Exp date 07/2018 PROCEDURES Procedure Date Ordered Related Diagnosis Body Site GLYCATED HEMOGLOBIN TEST Oct 13, 2016 Office Visit, Est Pt., Level 3 Oct 13, 2016 IMMUNIZATIONS No Known Immunizations
--- OUTSIDE RECORDS SUMMARY | 2018-08-12 11:28 | XMS REPORT ---
Author Author MARIA GRAHAM [facility] Address [address] [place] [address] Care Team Providers Care Motorcycle Delivery Driver Name Role Phone MARIA GRAHAM Unavailable PROBLEMS Type Condition ICD9-CM Code [id number] Code Onset Dates Condition Status SNOMED Code Problem Diabetes type 2, controlled E11.9 Active 83779829 Problem Primary insomnia F51.01 Active 831700259 Problem Hypertension, benign I10 Active 70642476 Assessment Diabetes type 2, controlled E11.9 Sep, Active 848621908 Problem Type 2 diabetes mellitus without complications E11.9 Active 722556675 Problem oil heaterman current use of insulin Z79.4 Active 165985907 Problem Diabetes type 2, uncontrolled E11.65 Active 247175006 Problem Mood disorder F39 Active 09185694 Problem Type 2 diabetes mellitus with diabetic polyneuropathy E11.42 Active 05004612 Problem Type 2 diabetes mellitus with hyperglycemia E11.65 Active 481020087348623 ALLERGIES Substance Reaction Event Type Date Status MetFORMIN HCl ER diarrhea Drug Allergy Sep, Active GlipiZIDE low blood sugar Drug Allergy Sep, Active SOCIAL HISTORY No smoking Hx information available PLAN OF CARE VITAL SIGNS Height 68 in 2016-09-12 Weight 222.3 lbs 2016-09-12 Heart Rate 78 bpm 2016-09-12 Respiratory Rate 20 2016-09-12 BMI 33.80 kg/m2 2016-09-12 Blood pressure systolic 118 mmHg 2016-09-12 Blood pressure diastolic 78 mmHg 2016-09-12 MEDICATIONS Medication Instructions Dosage Frequency Start Date End Date Duration Status Ativan 0.5 MG Orally 2 times a day 1 tablet as needed February, Active Blood Glucose Test Strip one touch ultra test blood sugar 24h Jun, Active Terbinafine HCl 1 % Externally Twice a day 1 application to affected area 12h Sep, Active Allopurinol 100 MG TAKE ONE TABLET BY MOUTH THREE TIMES DAILY 30 Active Daniel Contour Test 1 with lancets 2 times a day as directed May, Active Levemir FlexTouch 100 UNIT/ML Subcutaneous Once a day 75 units 24h February, Active Indomethacin 50 mg 1 capsule by Oral route 3 times per day Apr, Active [place] 5-325 MG 1 tablet as needed 6h Mar, Active Blood Glucose Monitor one touch ultra test blood sugar Jun, Active Neurontin 100 MG Orally 3 times a day 1 capsule 8h 15 Jun, 2016 Active Doxycycline Hyclate 100 MG Orally every 12 hrs 1 capsule 12h Aug, Sep, 10 days Active RESULTS No Results PROCEDURES Procedure Date Ordered Related Diagnosis Body Site GLYCATED HEMOGLOBIN TEST Sep 12, 2016 Office Visit, Est Pt., Level 3 Sep 12, 2016 IMMUNIZATIONS No Known Immunizations
--- OUTSIDE RECORDS SUMMARY | 2018-08-12 11:28 | XMS REPORT ---
Author Author MARIA GRAHAM Organization eClinicalWorks Address Unknown Phone Unavailable Care Team Providers Care International Student Advisor Name Role Phone MARIA GRAHAM CP Unavailable Allergies No Known Allergies Problems Problem Type Condition Code Onset Dates Condition Status Problem Hypertension, benign I10 Active Problem Diabetes type 2, controlled E11.9 Active Problem jail current use of insulin Z79.4 Active Problem Type 2 diabetes mellitus with diabetic polyneuropathy E11.42 Active Problem Type 2 diabetes mellitus without complications E11.9 Active Problem Mood disorder F39 Active Problem Primary insomnia F51.01 Active Problem Type 2 diabetes mellitus with hyperglycemia E11.65 Active Problem Diabetes type 2, uncontrolled E11.65 Active Medications No Known Medications Results No Known Results Summary Purpose eClinicalWorks Submission
--- OUTSIDE RECORDS SUMMARY | 2018-08-12 11:28 | XMS REPORT ---
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.2 Active Problem Essential hypertension, benign 401.1 Active Problem Unspecified episodic mood disorder 296.90 Active Problem Hypoglycemia, unspecified 251.2 Active Problem Diabetes type 2, controlled 250.00 Active Problem Unspecified hemorrhoids without mention of complication 455.6 Active Problem Generalized anxiety disorder 300.02 Active Problem Pain in joint, forearm 719.43 Active Problem Insomnia, unspecified 780.52 Active Medications Medication Code System Code Instructions Start Date End Date Status Dosage Lisinopril [facility] 87114338049 5 MG TAKE ONE TABLET BY MOUTH DAILY Fluoxetine HCl [facility] 33650091868 40 MG TAKE ONE CAPSULE BY MOUTH IN THE MORNING Blood Glucose Test Strip NDC 0 one touch ultra Once a day Jun 06, 2015 test blood sugar Restoril [facility] [address]-57 22.5 mg December 11, 2014 take 1 capsule ( 22.5 mg) by oral route once daily at bedtime PRN Daniel Contour Test [facility] [address]-86 1 with lancets 2 times a day May 30, 2015 as directed Allopurinol [facility] 91096452481 100 MG TAKE ONE TABLET BY MOUTH THREE TIMES DAILY Blood Glucose Monitor NDC 0 one touch ultra as directed. May substitue per insurance Jun 06, 2015 test blood sugar Actos [facility] [address]-48 30 MG Orally Once a day Jul 04, 2015 1 tablet Procedures Procedure Coding System Code Date Office Visit, Est Pt., Level 3 CPT-4 88191 Jul 04, 2015 Vital Signs Date/Time: Jul 04, 2015 Temperature 98.0 F Weight 235 lbs Height 68 in BMI 35.73 Index Blood Pressure Diastolic 78 mmHg Blood Pressure Systolic 118 mmHg Cardiac Monitoring Heart Rate 80 bpm Results No Known Results Summary Purpose eClinicalWorks Submission
--- OUTSIDE RECORDS SUMMARY | 2018-08-12 11:28 | XMS REPORT ---
Author Author VALENCIA PHELAN [facility] eClinicalWorks Address Unknown Phone Unavailable Care Team Providers Care Smasher Hand Name Role Phone VALENCIA PHELAN CP Unavailable Allergies No Known Allergies Problems Problem Type Condition Code Onset Dates Condition Status Problem Primary insomnia F51.01 Active Problem Hypertension, benign I10 Active Problem Mood disorder F39 Active Problem Diabetes type 2, controlled E11.9 Active Medications Medication Code System Code Instructions Start Date End Date Status Dosage Victoza [facility] [address]-12 18 MG/3ML Subcutaneous Once a day Aug 10, 2015 0.2 ml Results No Known Results Summary Purpose eClinicalWorks Submission
--- OUTSIDE RECORDS SUMMARY | 2018-08-12 11:28 | XMS REPORT ---
Author Author MARIA GRAHAM Organization [facility] [place] [facility] Address [address] [place] [address] Care Team Providers Care Low Emission Automobile Designer Name Role Phone GLADYS MARIA Unavailable PROBLEMS Type Condition ICD9-CM Code JEX34-TR Code Onset Dates Condition Status SNOMED Code Problem Diabetes type 2, controlled E11.9 Active 13687399 Problem Diabetes type 2, uncontrolled E11.65 Active 298823387 Problem Hypertension, benign I10 Active 19780390 Problem Primary insomnia F51.01 Active 908220283 Problem Mood disorder F39 Active 06115630 Problem Primary osteoarthritis involving multiple joints M15.0 Active 166991260 Problem 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 Active 743726829 Problem Type 2 diabetes mellitus with diabetic polyneuropathy E11.42 Active 26286637 Problem Type 2 diabetes mellitus with hyperglycemia E11.65 Active 340058649113329 Problem Type 2 diabetes mellitus without complications E11.9 Active 143181148 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 [id number] ALLERGIES No Information ENCOUNTERS Encounter Location Date Diagnosis [place] [id number] [place] [address] 91576- 2349 Nov, Controlled type 2 diabetes mellitus without complication, without long-term current use of insulin E11.9 [facility] [id number] [place] [address] 01328- 5337 Nov, [facility] [place] [facility] [id number] [place] [address] 34893- 5989 Oct, [place] [id number] [place] [address] 97556- 2932 Oct, Type 2 diabetes mellitus with diabetic polyneuropathy E11.42 and Primary osteoarthritis involving multiple joints M15.0 [facility] [place] [facility] [id number] [place] [address] 83158- 3825 Oct, Type 2 diabetes mellitus with diabetic polyneuropathy E11.42 ; Primary osteoarthritis involving multiple joints M15.0 and Viral upper respiratory tract infection J06.9 [facility] [place] [facility] [id number] [place] [address] 52190- 0600 Sep, Diabetes type 2, controlled E11.9 [facility] [facility] [id number] [address] 8879 Jun, Uncontrolled diabetes mellitus type 2 without complications , unspecified detention insulin use status E11.65 [facility] [facility] [id number] [place] [address] 91290- 0118 Jun, Bronchitis J40 [facility] [facility] [id number] [place] [address] 89234- 9383 May, Controlled type 2 diabetes mellitus without complication, without long-term current use of insulin E11.9 [place] [id number] [place] [address] 38401- 4407 Apr, Type 2 diabetes mellitus without complications E11.9 [facility] [facility] [id number] [place] [address] 99179- 3617 Apr, [facility] [place] [facility] [id number] [place] [address] 27519- 7226 Jan, Controlled type 2 diabetes mellitus without complication, without long-term current use of insulin E11.9 [place] [address] [address] 6347 Dec, Diabetes type 2, controlled E11.9 and Type 2 diabetes mellitus with diabetic polyneuropathy E11.42 [facility] [facility] [address] [address] 2196 Nov, Diabetes type 2, controlled E11.9 and 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 [facility] [address] [address]- 3448 Oct, [facility] [facility] [id number] [place] [address] 74201- 1664 Oct, Diabetes type 2, controlled E11.9 [facility] [facility] [address] [address] 1901 Sep, Diabetes type 2, controlled E11.9 [facility] [address] [address] Aug, Bronchitis J40 [facility] [facility] [id number] [place] [address] 87660- 6454 Aug, [facility] [place] [facility] [id number] [place] [address] 24936- 2473 Jul, Upper respiratory tract infection, unspecified type J06.9 ; Type 2 diabetes mellitus without complications E11.9 and [facility]PC current use of insulin Z79.4 [place] [id number] [place] [address] 95707- 5234 Jul, [facility] [place] [facility] [id number] [place] [address] 68947- 9311 Jun, Type 2 diabetes mellitus with diabetic polyneuropathy E11.42 ; Type 2 diabetes mellitus with hyperglycemia E11.65 and Encounter for immunization Z23 [place] [id number] [place] [address] 89287- 7135 May, Controlled type 2 diabetes mellitus without complication, without long-term current use of insulin E11.9 [facility] [facility] [address] [address]- 7214 Apr, Diabetes type 2, uncontrolled E11.65 [facility] [place] [facility] [address] [address]- 9051 Mar, [facility] [place] [facility] [id number] [place] [address] 65361- 6476 Mar, Controlled type 2 diabetes mellitus without complication, without long-term current use of insulin E11.9 [facility] [facility] [address] [address]- 9227 February, Diabetes type 2, controlled E11.9 [facility] [facility] [id number] [place] [address] 13883- 9756 February, Uncontrolled diabetes mellitus type 2 without complications , unspecified detention insulin use status E11.65 and Chest pain, unspecified type R07.9 [place] [id number] [place] [address] 05995- 0737 February, Diabetes type 2, uncontrolled E11.65 [place] [id number] [place] [address] 26552- 0286 Jan, [place] [id number] [place] [address] 93643- 1744 Jan, Coughing R05 ; Tinea versicolor B36.0 and Diabetes type 2, uncontrolled E11.65 [place] [id number] [place] [address] 24070- 9254 Dec, Cough R05 [place] [id number] [place] [address] 19795- 9415 Nov, [place] [id number] [place] [address] 51855- 4056 Oct, Unspecified mood [affective] disorder F39 [place] [id number] [place] [address] 09207- 2988 Oct, Cough R05 and Diabetes type 2, controlled E11.9 [place] [id number] [place] [address] 60303- 8599 Oct, Cough R05 [place] [id number] [place] [address] 22272- 7495 Oct, Abdominal pain R10.9 ; Cough R05 ; PND (post-nasal drip) R09.82 and GERD (gastroesophageal reflux disease) K21.9 [place] [id number] [place] [address] 23182- 6251 Sep, Unspecified mood [affective] disorder F39 [place] [id number] [place] [address] 73005- 1267 Aug, [facility] [facility] [address] [address]- 3127 Aug, [facility] [id number] [place] [address] 37525- 2241 Aug, [facility] [id number] [place] [address] 98128- 2313 Aug, [facility] [facility] [id number] [place] [address] 59742- 1885 Aug, Unspecified mood [affective] disorder F39 [facility] [id number] [place] [address] 21996- 6162 Aug, [facility] [id number] [place] [address] 16748- 9818 Aug, [facility] [id number] [place] [address] 63379- 0632 Jul, Tooth abscess K04.7 [facility] [id number] [place] [address] 73363- 7665 Jul, Diabetes type 2, controlled E11.9 [facility] [id number] [place] [address] 66762- 7751 Jul, [facility] [id number] [place] [address] 45628- 9447 Jul, [facility] [id number] [place] [address] 28193- 2430 Jun, [facility] [id number] [place] [address] 45181- 7652 Jun, Diabetes type 2, controlled 250.00 [facility] [id number] [place] [address] 19567- 3884 17 Jun, 2015 [facility] [id number] [place] [address] 73628- 5199 15 Jun, 2015 Affective disorder 296.90 [facility] [address] [address]- 2546 Jun, [facility] [address] [address]- 0526 May, Affective disorder 296.90 [facility] [address] [address]- 6626 May, Diabetes mellitus 250.00 [facility] [facility] [id number] [place] [address] 86746- 9881 Apr, Episodic mood disorder 296.90 [facility] [address] [address]- 8553 Mar, Episodic mood disorder 296.90 [facility] [address] [address] 2546 February, Unspecified episodic mood disorder 296.90 [facility] [address] [address]- 8497 Jan, [facility] [address] [address]- 0067 Jan, [facility] [address] [address]- 8007 Dec, [facility] [address] [address]- 9766 Dec, [facility] [address] [address]- 2546 Dec, [facility] [address] [address]- 2546 Dec, [facility] [facility] [address] [address]- 2546 Dec, [facility] [facility] [address] [address]- 2546 Dec, [facility] [address] [address]- 254 Dec, [facility] [place] [facility] [address] [id number] [place] [address]- 5339 Dec, [facility] [place] [facility] [address] [id number] [place] [address]- 9640 Nov, [facility] [place] [facility] [address] [id number] [place] [address]- 0883 Nov, [facility] [place] [facility] [address] [id number] [place] [address]- 8329 Nov, [facility] [place] [facility] [address] [id number] [place] [address]- 7665 Nov, [facility] [place] [facility] [address] [id number] [place] [address]- 1189 Nov, [facility] [place] [facility] [address] [id number] [place] [address]- 2836 Nov, [facility] [place] [facility] [address] [id number] [address]- 6744 Oct, [facility] [place] [facility] [address] [id number] [place] [address]- 8201 Oct, [facility] [place] [facility] [address] [id number] [place] [address]- 0481 Oct, [facility] [place] [facility] [address] [id number] [address]- 1037 Oct, [facility] [place] [facility] [address] [id number] [place] [address]- 5254 Oct, [facility] [place] [facility] [address] [id number] [place] [address]- 2892 Oct, [facility] [place] [facility] [address] [id number] [place] [address]- 2707 Oct, [facility] [place] [facility] [address] [id number] [place] [address]- 8735 Oct, [facility] [place] [facility] [address] [id number] [place] [address]- 4181 15 Oct, 2014 [facility] [address] [id number] [place] [address]- 6823 15 Oct, 2014 [facility] [place] [facility] [address] [id number] [place] [address]- 8015 Oct, [facility] [place] [facility] [address] [id number] [place] [address]- 0668 Oct, [facility] [place] [facility] [address] [id number] [place] [address]- 2208 Oct, [facility] [place] [facility] [address] [id number] [place] [address]- 4799 Oct, [facility] [place] [facility] [address] [id number] [place] [address]- 7846 Oct, [facility] [place] [facility] [address] [id number] [place] [address]- 0655 Oct, [facility] [place] [facility] [address] [id number] [place] [address]- 2044 Oct, [facility] [place] [facility] [address] [id number] [place] [address]- 3790 Oct, [facility] [place] [facility] [address] [facility] [id number] [place] [address]- 3030 08 Sep, 2014 [facility] [place] [facility] [address] [id number] [place] [address]- 3054 Sep, [facility] [place] [facility] [address] [id number] [place] [address]- 9381 Sep, [facility] [place] [facility] [address] [id number] [place] [address]- 6260 Sep, [facility] [place] [facility] [address] [id number] [place] [address]- 3554 Sep, [facility] [place] [facility] [address] [id number] [place] [address]- 8166 Sep, [facility] [place] [facility] [address] [id number] [place] [address]- 0350 Aug, [facility] [place] [facility] [address] [id number] [place] 6070 Aug, [facility] [place] [facility] [address] [id number] [place] [address]- 8019 Aug, [facility] [place] [facility] [address] [id number] [place] [address]- 1825 Aug, [facility] [place] [facility] [address] [id number] [place] [address]- 5038 Jul, [facility] [place] [facility] [address] [id number] [place] [address]- 2802 Jul, [facility] [place] [facility] [address] [id number] [place] [address]- 7040 Jul, [facility] [place] [facility] [address] [id number] [place] [address]- 0518 Jul, [facility] [place] [facility] [address] [id number] [place] [address]- 9052 Jul, [facility] [place] [facility] [address] [id number] [place] [address]- 5913 Jul, [facility] [place] [facility] [address] [id number] [place] [address]- 0878 Jul, [facility] [place] [facility] [address] [id number] [place] [address]- 4783 Jul, [facility] [place] [facility] [address] [id number] [place] [address]- 6180 May, [facility] [place] [facility] [address] [id number] [place] [address]- 2869 May, [facility] [place] [facility] [address] [id number] [place] [address]- 9966 Apr, [facility] [place] [facility] [address] [id number] [place] [address]- 9175 Apr, [facility] [place] [facility] [address] [id number] [place] [address]- 0576 Mar, [facility] [place] [facility] [address] [id number] [place] [address]- 4798 Mar, [facility] [place] [facility] [address] [id number] [place] [address]- 7108 Mar, [facility] [place] [facility] [address] [id number] [place] [address]- 1782 Mar, [facility] [place] [facility] [address] [id number] [place] [address]- 4047 Mar, [facility] [place] [facility] [address] [id number] [place] [address]- 6781 Mar, [facility] [place] [facility] [address] [id number] [place] [address]- 3923 Nov, [facility] [place] [facility] [address] [id number] [place] [address]- 1292 Nov, [facility] [place] [facility] [address] [id number] [place] [address]- 5138 Jun, [facility] [place] [facility] [address] [id number] [place] [address]- 7438 May, [facility] [place] [facility] [address] [id number] [place] [address]- 0993 Apr, [facility] [place] [facility] [address] [id number] [place] [address]- 4594 Apr, [facility] [place] [facility] [address] [id number] [place] [address]- 6367 Mar, [facility] [place] [facility] [address] [id number] [place] [address]- 7549 Mar, [facility] [place] [facility] [address] [id number] [place] [address]- 4256 Mar, [facility] [place] [facility] [address] [id number] [place] [address]- 2546 10 Feb, 2013 [facility] [address] [id number] [place] [address]- 7216 Dec, [facility] [place] [facility] [address] [id number] [place] [address]- 2546 Nov, [facility] [address] [id number] [place] [address]- 7836 Oct, [facility] [address] [id number] [place] [address]- 2546 Oct, [facility] [address] [id number] [place] [address]- 6086 Oct, [facility] [address] [id number] [place] [address]- 2546 Oct, [facility] [address] [id number] [place] [address]- 9248 Sep, [facility] [address] [id number] [place] [address]- 8795 Sep, [facility] [address] [id number] [place] [address]- 2336 Sep, [facility] [address] [id number] [place] [address]- 8246 Sep, [facility] [address] [id number] [place] [address]- 5496 Sep, [facility] [address] [id number] [place] [address]- 2546 Sep, [facility] [place] [facility] [address] [id number] [place] [address]- 5216 Sep, [facility] [place] [facility] [address] [id number] [place] [address]- 2546 04 Sep, 2012 [facility] [address] [id number] [place] [address] 2546 Sep, [facility] [place] [facility] [id number] [address]- 3404 Sep, [facility] [place] [facility] [address] [address]- 8496 Sep, [facility] [place] [facility] [address] [address]- 3870 Aug, [facility] [place] [facility] [address] [address]- 6524 Aug, [facility] [place] [facility] [address] [address]- 7628 Aug, [facility] [place] [facility] [id number] [place] [address] 47469- 0017 Jul, [facility] [place] [facility] [address] [address]- 4086 Jul, [facility] [place] [facility] [address] [address]- 5739 Dec, [facility] [place] [facility] [id number] [address]- 4825 Aug, [facility] [place] [facility] [address] [address]- 4677 Mar, IMMUNIZATIONS No Known Immunizations SOCIAL HISTORY Never Assessed REASON FOR VISIT PLAN OF CARE VITAL SIGNS MEDICATIONS Unknown Medications RESULTS No Results PROCEDURES No Known [...]
--- OUTSIDE RECORDS SUMMARY | 2018-08-12 11:28 | XMS REPORT ---
Author Author MARIA GRAHAM Organization [employer] Address Unknown Phone Unavailable Care Team Providers Care Die Baker Name Role Phone MARIA GRAHAM CP Unavailable Allergies No Known Allergies Problems Problem Type Condition Code Onset Dates Condition Status Problem Primary insomnia F51.01 Active Problem Hypertension, benign I10 Active Problem Mood disorder F39 Active Problem Diabetes type 2, controlled E11.9 Active Medications Medication Code System Code Instructions Start Date End Date Status Dosage Victoza [facility] [address]-68 18 MG/3ML Subcutaneous at bedtime 1.8 mg daily Results No Known Results Summary Purpose [employer] Submission
--- OUTSIDE RECORDS SUMMARY | 2018-08-12 11:28 | XMS REPORT ---
Author Author MARIA GRAHAM Organization [employer] Address Unknown Phone Unavailable Care Team Providers Care Towboat Engineer Name Role Phone MARIA GRAHAM CP Unavailable Allergies, Adverse Reactions, Alerts Substance Reaction Event Type MetFORMIN HCl ER diarrhea Drug Allergy GlipiZIDE low blood sugar Drug Allergy Problems Problem Type Condition Code Onset Dates Condition Status Problem Primary insomnia F51.01 Active Problem Hypertension, benign I10 Active Problem Mood disorder F39 Active Problem Diabetes type 2, controlled E11.9 Active Assessment Diabetes type 2, controlled E11.9 Active Medications Medication Code System Code Instructions Start Date End Date Status Dosage Fluoxetine HCl [facility] 55566201897 40 MG TAKE ONE CAPSULE BY MOUTH IN THE MORNING Actos [facility] [address]-72 30 MG Orally Once a day Jul 04, 2015 1 tablet Allopurinol [facility] 51044469410 100 MG TAKE ONE TABLET BY MOUTH THREE TIMES DAILY Blood Glucose Monitor NDC 0 one touch ultra as directed. May substitue per insurance Jun 06, 2015 test blood sugar Lisinopril [facility] 54140843099 5 MG TAKE ONE TABLET BY MOUTH DAILY Daniel Contour Test [facility] [address]-34 1 with lancets 2 times a day May 30, 2015 as directed Blood Glucose Test Strip NDC 0 one touch ultra Once a day Jun 06, 2015 test blood sugar Procedures Procedure Coding System Code Date Office Visit, Est Pt., Level 3 CPT-4 71134 Jul 18, 2015 Vital Signs Date/Time: Jul 18, 2015 Temperature 98.0 F Weight 234 lbs Height 68 in BMI 35.58 Index Blood Pressure Diastolic 75 mmHg Blood Pressure Systolic 115 mmHg Cardiac Monitoring Heart Rate 88 bpm Results No Known Results Summary Purpose [employer] Submission
--- OUTSIDE RECORDS SUMMARY | 2018-08-12 11:29 | XMS REPORT ---
Author MARIA Escobedo [facility] [employer] Address Unknown Phone Unavailable Care Team Providers Care Medical Assistant Cardiology Name Role Phone MARIA GRAHAM CP Unavailable Allergies, Adverse Reactions, Alerts Substance Reaction Event Type MetFORMIN HCl ER diarrhea Drug Allergy GlipiZIDE low blood sugar Drug Allergy Problems Problem Type Condition Code Onset Dates Condition Status Problem Mood disorder F39 Active Problem Primary insomnia F51.01 Active Problem Diabetes type 2, uncontrolled E11.65 Active Assessment Diabetes type 2, uncontrolled E11.65 Active Problem Hypertension, benign I10 Active Problem Diabetes type 2, controlled E11.9 Active Medications Medication Code System Code Instructions Start Date End Date Status Dosage Daniel Contour Test [facility] [address]-78 1 with lancets 2 times a day May 30, 2015 as directed Blood Glucose Monitor NDC 0 one touch ultra as directed. May substitue per insurance Jun 06, 2015 test blood sugar Cetirizine HCl [facility] [address]-06 10 mg Orally Once a day January 07, 2016 Jul 05, 2016 1 tablet as needed Allopurinol [facility] 25163761639 100 MG TAKE ONE TABLET BY MOUTH THREE TIMES DAILY [place] [facility] [address]-15 5-325 mg March 24, 2014 take 1 tablet by oral route every 6 hours as needed for pain PRN Blood Glucose Test Strip NDC 0 one touch ultra Once a day Jun 06, 2015 test blood sugar Levemir FlexTouch [facility] [address]-90 100 UNIT/ML Subcutaneous Once a day February 04, 2016 10 units Procedures Procedure Coding System Code Date GLYCATED HEMOGLOBIN TEST CPT-4 35703 February 04, 2016 Office Visit, Est Pt., Level 3 CPT-4 75827 February 04, 2016 Vital Signs Date/Time: February 04, 2016 Temperature 97.9 F Weight 224 lbs Height 68 in BMI 34.06 Index Blood Pressure Diastolic 78 mmHg Blood Pressure Systolic 116 mmHg Cardiac Monitoring Heart Rate 100 bpm Results Name Result Date Reference Range Unit Abnormality Flag A1C (IN HOUSE) ----A1C IN HOUSE 11.1 [id number] 4.3 - 5.6 % ----Previous A1c 9.1 [id number] ----Lot [id number] ----Exp date [id number] Summary Purpose eClinicalWorks Submission
--- OUTSIDE RECORDS SUMMARY | 2018-08-12 11:29 | XMS REPORT ---
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 616589084 Problem Type 2 diabetes mellitus without complications E11.9 Active 862933099 Problem Type 2 diabetes mellitus with hyperglycemia E11.65 Active 423213042197104 Problem Diabetes type 2, uncontrolled E11.65 Active 779474164 Problem [facility] current use of insulin Z79.4 Active 373702459 Problem Type 2 diabetes mellitus with diabetic polyneuropathy E11.42 Active 15116740 ALLERGIES No Known Allergies SOCIAL HISTORY No smoking Hx information available PLAN OF CARE VITAL SIGNS MEDICATIONS No Known Medications RESULTS No Results PROCEDURES No Known procedures IMMUNIZATIONS No Known Immunizations
--- OUTSIDE RECORDS SUMMARY | 2018-08-12 11:29 | XMS REPORT ---
Author MARIA Escobedo Organization [employer] Address Unknown Phone Unavailable Care Team Providers Care Bread Icer Name Role Phone MARIA GRAHAM CP Unavailable Allergies No Known Allergies Problems Problem Type Condition Code Onset Dates Condition Status Problem Primary insomnia F51.01 Active Problem Hypertension, benign I10 Active Problem Mood disorder F39 Active Problem Diabetes type 2, controlled E11.9 Active Medications Medication Code System Code Instructions Start Date End Date Status Dosage Victoza [facility] [address]-79 18 MG/3ML Subcutaneous Once a day Aug 10, 2015 Nov 27, 2015 0.2 ml Results No Known Results Summary Purpose eClinicalWorks Submission
--- OUTSIDE RECORDS SUMMARY | 2018-08-12 11:29 | XMS REPORT ---
Author Author VAHE GARCIA [facility] e[employer] Address Unknown Phone Unavailable Care Team Providers Care Electric Container Tester Name Role Phone VAHE GARCIA CP Unavailable Allergies, Adverse Reactions, Alerts Substance Reaction Event Type MetFORMIN HCl ER diarrhea Drug Allergy GlipiZIDE low blood sugar Drug Allergy Problems Problem Type Condition Code Onset Dates Condition Status Problem Primary insomnia F51.01 Active Problem Hypertension, benign I10 Active Problem Mood disorder F39 Active Problem Diabetes type 2, controlled E11.9 Active Assessment Tooth abscess K04.7 Active Medications Medication Code System Code Instructions Start Date End Date Status Dosage Clindamycin HCl [facility] [address]-92 300 MG Orally every 8 hrs Jul 31, 2015 Aug 10, [address] [facility] [address]-74 18 MG/3ML Subcutaneous Once a day 0.[address] [facility] [address]-09 5-325 mg March 24, 2014 take 1 tablet by oral route every 6 hours as needed for pain PRN Daniel Contour Test [facility] [address]-61 1 with lancets 2 times a day May 30, 2015 as directed Blood Glucose Test Strip NDC 0 one touch ultra Once a day Jun 06, 2015 test blood sugar Blood Glucose Monitor NDC 0 one touch ultra as directed. May substitue per insurance Jun 06, 2015 test blood sugar Lisinopril [facility] 09914994535 5 MG TAKE ONE TABLET BY MOUTH DAILY Indomethacin [facility] [address]-05 50 mg May 03, 2014 1 capsule by Oral route 3 times per day Fluoxetine HCl [facility] 06190292681 40 MG TAKE ONE CAPSULE BY MOUTH IN THE MORNING Allopurinol [facility] 75719470190 100 MG TAKE ONE TABLET BY MOUTH THREE TIMES DAILY Procedures Procedure Coding System Code Date Office Visit, Est Pt., Level 3 CPT-4 24955 Jul 31, 2015 Vital Signs Date/Time: Jul 31, 2015 Temperature 98.8 F Weight 231.3 lbs Height 68 in BMI 35.17 Index Blood Pressure Diastolic 74 mmHg Blood Pressure Systolic 130 mmHg Cardiac Monitoring Heart Rate 84 bpm Results No Known Results Summary Purpose eClinicalWorks Submission
--- OUTSIDE RECORDS SUMMARY | 2018-08-12 11:29 | XMS REPORT ---
Author Author MARIA GRAHAM [facility] Address [address] [place] [address] Care Team Providers Care Nuclear Reactor Technician Name Role Phone MARIA GRAHAM Unavailable PROBLEMS Type Condition ICD9-CM Code [id number] Code Onset Dates Condition Status SNOMED Code Assessment Chest pain, unspecified type R07.9 February, Active 19018922 Problem Diabetes type 2, uncontrolled E11.65 Active 588295255 Problem Mood disorder F39 Active 48556774 Problem Diabetes type 2, controlled E11.9 Active 47053500 Assessment Uncontrolled diabetes mellitus type 2 without complications, unspecified [facility] insulin use status E11.65 February, Active 274016997 Problem Primary insomnia F51.01 Active 849679558 Problem Hypertension, benign I10 Active 76231808 ALLERGIES Substance Reaction Event Type Date Status MetFORMIN HCl ER diarrhea Drug Allergy February, Active GlipiZIDE low blood sugar Drug Allergy February, Active SOCIAL HISTORY No smoking Hx information available PLAN OF CARE VITAL SIGNS Height 68 in 2016-02-25 Weight 221.6 lbs 2016-02-25 Heart Rate 94 bpm 2016-02-25 Respiratory Rate 18 2016-02-25 BMI 33.69 kg/m2 2016-02-25 Blood pressure systolic 108 mmHg 2016-02-25 Blood pressure diastolic 78 mmHg 2016-02-25 MEDICATIONS Medication Instructions Dosage Frequency Start Date End Date Duration Status Levemir FlexTouch 100 UNIT/ML Subcutaneous Once a day 10 units 24h February, Active Allopurinol 100 MG TAKE ONE TABLET BY MOUTH THREE TIMES DAILY 30 Active Ativan 0.5 MG Orally 2 times a day 1 tablet as needed 12h February, Active Blood Glucose Test Strip one touch ultra test blood sugar 24h Jun, Active Blood Glucose Monitor one touch ultra test blood sugar Jun, Active Daniel Contour Test 1 with lancets 2 times a day as directed 12h May, Active [place] 5-325 mg take 1 tablet by oral route every 6 hours as needed for pain PRN Mar, Active RESULTS No Results PROCEDURES Procedure Date Ordered Related Diagnosis Body Site EKG, TRACING (IN-HOUSE) 2016-02-25 N/A Office Visit, Est Pt., Level 3 February 25, 2016 ELECTROCARDIOGRAM, TRACING February 25, 2016 IMMUNIZATIONS No Known Immunizations
--- OUTSIDE RECORDS SUMMARY | 2018-08-12 11:29 | XMS REPORT ---
Author Author MARIA GRAHAM Organization [employer] Address Unknown Phone Unavailable Care Team Providers Care Steel Unloader Name Role Phone MARIA GRAHAM CP Unavailable Allergies No Known Allergies Problems Problem Type Condition Code Onset Dates Condition Status Problem Primary insomnia F51.01 Active Problem Hypertension, benign I10 Active Problem Mood disorder F39 Active Problem Diabetes type 2, controlled E11.9 Active Medications Medication Code System Code Instructions Start Date End Date Status Dosage Victoza [facility] [address]-24 18 MG/3ML Subcutaneous Once a day Aug 10, 2015 1.2 mg Results No Known Results Summary Purpose eClinicalWorks Submission
--- OUTSIDE RECORDS SUMMARY | 2018-08-12 11:29 | XMS REPORT ---
Author Author MARIA GRAHAM Organization [employer] Address Unknown Phone Unavailable Care Team Providers Care Asset Accountant Name Role Phone MARIA GRAHAM CP Unavailable Allergies No Known Allergies Problems Problem Type Condition Code Onset Dates Condition Status Problem Primary insomnia F51.01 Active Problem Hypertension, benign I10 Active Problem Mood disorder F39 Active Problem Diabetes type 2, controlled E11.9 Active Medications Medication Code System Code Instructions Start Date End Date Status Dosage Victoza [facility] [address]-43 18 MG/3ML Subcutaneous Once a day Aug 10, 2015 0.2 ml Results No Known Results Summary Purpose eClinicalWorks Submission
--- OUTSIDE RECORDS SUMMARY | 2018-08-12 11:29 | XMS REPORT ---
Author Author MARIA GRAHAM Organization [employer] Address Unknown Phone Unavailable Care Team Providers Care Dental Technician Apprentice Name Role Phone MARIA GRAHAM CP Unavailable Allergies No Known Allergies Problems Problem Type Condition Code Onset Dates Condition Status Problem Primary insomnia F51.01 Active Problem Hypertension, benign I10 Active Problem Mood disorder F39 Active Problem Diabetes type 2, controlled E11.9 Active Medications No Known Medications Results No Known Results Summary Purpose eClinicalWorks Submission
--- OUTSIDE RECORDS SUMMARY | 2018-08-12 11:29 | XMS REPORT ---
Author Author [facility] Organization [employer] Address Unknown Phone Unavailable Care Team Providers Care Rehanger Name Role Phone [facility] CP Unavailable Allergies No Known Allergies Problems Problem Type Condition Code Onset Dates Condition Status Problem Primary insomnia F51.01 Active Problem Hypertension, benign I10 Active Problem Mood disorder F39 Active Problem Diabetes type 2, controlled E11.9 Active Assessment Unspecified mood [affective] disorder F39 Active Medications No Known Medications Procedures Procedure Coding System Code Date HE[facility] PROMOTION CPT-4 S0280 Aug 24, 2015 Results No Known Results Summary Purpose eClinicalWorks Submission
--- OUTSIDE RECORDS SUMMARY | 2018-08-12 11:29 | XMS REPORT ---
Author MARIA Escobedo [facility] eClinical[employer] Address Unknown Phone Unavailable Care Team Providers Care Cushion Maker Hand Name Role Phone MARIA GRAHAM CP Unavailable Allergies, Adverse Reactions, Alerts Substance Reaction Event Type MetFORMIN HCl ER diarrhea Drug Allergy GlipiZIDE low blood sugar Drug Allergy Problems Problem Type Condition Code Onset Dates Condition Status Problem Mood disorder F39 Active Problem Primary insomnia F51.01 Active Problem Diabetes type 2, uncontrolled E11.65 Active Assessment Controlled type 2 diabetes mellitus without complication, without long-term current use of insulin E11.9 Active Problem Hypertension, benign I10 Active Problem Diabetes type 2, controlled E11.9 Active Medications Medication Code System Code Instructions Start Date End Date Status Dosage Ativan [facility] [address]-95 0.5 MG Orally 2 times a day February 25, 2016 1 tablet as needed Blood Glucose Test Strip NDC 0 one touch ultra Once a day Jun 06, 2015 test blood sugar Allopurinol [facility] 68707949743 100 MG TAKE ONE TABLET BY MOUTH THREE TIMES DAILY True Metrix Blood Glucose Test [facility] 35776-[address]56 In Vitro March 31, 2016 as directed [employer] TRUEresult Glucose Sys [facility] 32179-92472 w/Device February 26, 2016 as directed Indomethacin [facility] [address]-16 50 mg May 03, 2014 1 capsule by Oral route 3 times per day Levemir FlexTouch [facility] [address]-68 100 UNIT/ML Subcutaneous Once a day February 04, 2016 20 units Daniel Contour Test [facility] [address]-66 1 with lancets 2 times a day May 30, 2015 as directed Blood Glucose Monitor NDC 0 one touch ultra as directed. February substitue per insurance Jun 06, 2015 test blood sugar [place] [facility] [address]-36 5-325 MG every 6 hrs March 24, 2014 1 tablet as needed [employer] Blood Glucose [place] 0 Test Strips 2 times a day February 26, 2016 1 strip Procedures Procedure Coding System Code Date GLYCATED HEMOGLOBIN TEST CPT-4 06380 May 19, 2016 Office Visit, Est Pt., Level 3 CPT-4 34730 May 19, 2016 Vital Signs Date/Time: May 19, 2016 Cardiac Monitoring Heart Rate 84 bpm Weight 225 lbs Height 68 in BMI 34.21 Index Blood Pressure Diastolic 84 mmHg Blood Pressure Systolic 118 mmHg Results No Known Results Summary Purpose eClinicalWorks Submission
--- OUTSIDE RECORDS SUMMARY | 2018-08-12 11:29 | XMS REPORT ---
Author Author MARIA GRAHAM Organization [employer] Address Unknown Phone Unavailable Care Team Providers Care Wireless Watcher Name Role Phone MARIA GRAHAM CP Unavailable Allergies No Known Allergies Problems Problem Type Condition Code Onset Dates Condition Status Problem Hypertension, benign I10 Active Problem Diabetes type 2, controlled E11.9 Active Problem assisted current use of insulin Z79.4 Active Problem Type 2 diabetes mellitus with diabetic polyneuropathy E11.42 Active Problem Type 2 diabetes mellitus without complications E11.9 Active Problem Mood disorder F39 Active Problem Primary insomnia F51.01 Active Problem Type 2 diabetes mellitus with hyperglycemia E11.65 Active Problem Diabetes type 2, uncontrolled E11.65 Active Medications Medication Code System Code Instructions Start Date End Date Status Dosage Allopurinol [facility] [address]-09 100 MG TAKE ONE TABLET BY MOUTH THREE TIMES DAILY Results No Known Results Summary Purpose eClinicalWorks Submission
--- OUTSIDE RECORDS SUMMARY | 2018-08-12 11:29 | XMS REPORT ---
Author Author MARIA GRAHAM Organization [employer] Address Unknown Phone Unavailable Care Team Providers Care Sausage Mixer Name Role Phone MARIA GRAHAM CP Unavailable Allergies No Known Allergies Problems Problem Type Condition Code Onset Dates Condition Status Problem Renal and perinephric abscess 590.2 Active Problem Essential hypertension, benign 401.1 Active Problem Unspecified episodic mood disorder 296.90 Active Problem Hypoglycemia, unspecified 251.2 Active Problem Diabetes type 2, controlled 250.00 Active Problem Unspecified hemorrhoids without mention of complication 455.6 Active Problem Generalized anxiety disorder 300.02 Active Problem Pain in joint, forearm 719.43 Active Problem Insomnia, unspecified 780.52 Active Medications No Known Medications Results No Known Results Summary Purpose eClinicalWorks Submission
--- OUTSIDE RECORDS SUMMARY | 2018-08-12 11:29 | XMS REPORT ---
Author Author MARIA GRAHAM [facility] Address [address] [place] [address] Care Team Providers Care Marine Structural Welder Name Role Phone MARIA GRAHAM Unavailable PROBLEMS Type Condition ICD9-CM Code [id number] Code Onset Dates Condition Status SNOMED Code Assessment Encounter for immunization Z23 Jun, Active 657449334 Problem Diabetes type 2, controlled E11.9 Active 42597877 Assessment Type 2 diabetes mellitus with diabetic polyneuropathy E11.42 Jun, Active 19081351 Problem Type 2 diabetes mellitus with diabetic polyneuropathy E11.42 Active 15134143 Problem Type 2 diabetes mellitus with hyperglycemia E11.65 Active 761798396382727 Problem Primary insomnia F51.01 Active 456842766 Problem Hypertension, benign I10 Active 76364656 Problem Diabetes type 2, uncontrolled E11.65 Active 284162429 Problem Mood disorder F39 Active 85873429 ALLERGIES Substance Reaction Event Type Date Status MetFORMIN HCl ER diarrhea Drug Allergy Jun, Active GlipiZIDE low blood sugar Drug Allergy Jun, Active SOCIAL HISTORY No smoking Hx information available PLAN OF CARE VITAL SIGNS Height 68 in 2016-06-19 Weight 213.6 lbs 2016-06-19 Heart Rate 96 bpm 2016-06-19 Respiratory Rate 18 2016-06-19 BMI 32.47 kg/m2 2016-06-19 Blood pressure systolic 104 mmHg 2016-06-19 Blood pressure diastolic 82 mmHg 2016-06-19 MEDICATIONS Medication Instructions Dosage Frequency Start Date End Date Duration Status Blood Glucose Monitor one touch ultra test blood sugar Jun, Active Daniel Contour Test 1 with lancets 2 times a day as directed 12h May, Active Blood Glucose Test Strip one touch ultra test blood sugar 24h Jun, Active Indomethacin 50 mg 1 capsule by Oral route 3 times per day Apr, Active Ativan 0.5 MG Orally 2 times a day 1 tablet as needed 12h February, Active Neurontin 100 MG Orally 3 times a day 1 capsule 8h Jun, Active Allopurinol 100 MG TAKE ONE TABLET BY MOUTH THREE TIMES DAILY 30 Active Levemir FlexTouch 100 UNIT/ML Subcutaneous Once a day 20 units 24h February, Active [place] 5-325 MG 1 tablet as needed 6h 20 Mar, 2014 Active RESULTS No Results PROCEDURES Procedure Date Ordered Related Diagnosis Body Site Office Visit, Est Pt., Level 3 Jun 19, 2016 FLUARIX QUAD P-FREE 3 AND UP .50 2015Jun 19, 2016 SINGLE IMMUNIZATION ADMIN Jun 19, 2016 IMMUNIZATIONS Vaccine Route Administration Date Status FLUARIX QUAD P-FREE 3 AND UP .50 2015 IM Intramuscular Jun 19, 2016 Administered
--- OUTSIDE RECORDS SUMMARY | 2018-08-12 11:30 | XMS REPORT ---
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 335420673 Problem Type 2 diabetes mellitus without complications E11.9 Active 565914561 Problem Type 2 diabetes mellitus with hyperglycemia E11.65 Active 580244478919100 Problem Diabetes type 2, uncontrolled E11.65 Active 631590331 Problem [facility] current use of insulin Z79.4 Active 180763924 Problem Type 2 diabetes mellitus with diabetic polyneuropathy E11.42 Active 12251572 ALLERGIES No Information SOCIAL HISTORY Never Assessed PLAN OF CARE VITAL SIGNS MEDICATIONS Medication Instructions Dosage Frequency Start Date End Date Duration Status Insulin Aspart 100 UNIT/ML 10 units with meals Active Neurontin 100 MG Orally 3 times a day 1 capsule 8h 15 Jun, 2016 Active RESULTS No Results PROCEDURES No Known procedures IMMUNIZATIONS No Known Immunizations MEDICAL (GENERAL) HISTORY [...]
--- OUTSIDE RECORDS SUMMARY | 2018-08-12 11:30 | XMS REPORT ---
Author Author [facility] Organization eClinicalWorks Address Unknown Phone Unavailable Care Team Providers Care Museum Librarian Name Role Phone [facility] CP Unavailable Allergies No Known Allergies Problems Problem Type Condition Code Onset Dates Condition Status Problem Primary insomnia F51.01 Active Problem Hypertension, benign I10 Active Problem Mood disorder F39 Active Problem Diabetes type 2, controlled E11.9 Active Assessment Unspecified mood [affective] disorder F39 Active Medications No Known Medications Procedures Procedure Coding System Code Date HEALTH PROMOTION CPT-4 S0280 Sep 12, 2015 Results No Known Results Summary Purpose eClinicalWorks Submission
--- OUTSIDE RECORDS SUMMARY | 2018-08-12 11:30 | XMS REPORT ---
Author Author MARIA GRAHAM Organization [employer] Address Unknown Phone Unavailable Care Team Providers Care Route Jumper Name Role Phone MARIA GRAHAM CP Unavailable [...]
--- OUTSIDE RECORDS SUMMARY | 2018-08-12 11:30 | XMS REPORT ---
Author Author MARK ANTHONY BRYANT Organization [employer] Address Unknown Phone Unavailable Care Team Providers Care Dairy Farmworker Name Role Phone MARK ANTHONY BRYANT CP Unavailable Allergies No Known Allergies Problems Problem Type Condition Code Onset Dates Condition Status Problem Primary insomnia F51.01 Active Problem Hypertension, benign I10 Active Problem Mood disorder F39 Active Problem Diabetes type 2, controlled E11.9 Active Medications No Known Medications Results No Known Results Summary Purpose eClinicalWorks Submission
--- OUTSIDE RECORDS SUMMARY | 2018-08-12 11:30 | XMS REPORT ---
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 Phone MARIA GRAHAM Unavailable PROBLEMS Type Condition ICD9-CM Code MXY16-XS Code Onset Dates Condition Status SNOMED Code Problem Diabetes type 2, controlled E11.9 Active 05854846 Problem Diabetes type 2, uncontrolled E11.65 Active 357448755 Problem Hypertension, benign I10 Active 44542173 Problem Primary insomnia F51.01 Active 808065108 Problem Mood disorder F39 Active 62479622 Problem Primary osteoarthritis involving multiple joints M15.0 Active 483222926 Problem 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 Active 545989636 Problem Type 2 diabetes mellitus with diabetic polyneuropathy E11.42 Active 17836354 Problem Type 2 diabetes mellitus with hyperglycemia E11.65 Active 538172911867647 Problem Type 2 diabetes mellitus without complications E11.9 Active 145348375 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 713221852 ALLERGIES No Information ENCOUNTERS Encounter Location Date Diagnosis [facility] [id number] [place] [address] 94454- 7472 Mar, [facility] [id number] [place] [address] 25333- 8780 February, [facility] [id number] [place] [address] 34863- 8332 Jan, [facility] [id number] [place] [address] 05529- 6754 15 Nov, 2017 Controlled type 2 diabetes mellitus without complication, without long-term current use of insulin E11.9 [facility] [id number] [place] [address] 08818- 7514 02 Nov, 2017 [facility] [id number] [place] [address] 22944- 5588 Oct, [facility] [address] [address] 2550 Oct, Type 2 diabetes mellitus with diabetic polyneuropathy E11.42 and Primary osteoarthritis involving multiple joints M15.0 [facility] [address] [address] 5149 Oct, Type 2 diabetes mellitus with diabetic polyneuropathy E11.42 ; Primary osteoarthritis involving multiple joints M15.0 and Viral upper respiratory tract infection J06.9 [facility] [address] [address] 7184 Sep, Diabetes type 2, controlled E11.9 [facility] [address] [address] 9072 Jun, Uncontrolled diabetes mellitus type 2 without complications , 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 [place] [address] [address] 3572 Jun, Bronchitis J40 [facility] [address] [address] 6095 May, Controlled type 2 diabetes mellitus without complication, without long-term current use of insulin E11.9 [facility] [address] [address]- 0202 Apr, Type 2 diabetes mellitus without complications E11.9 [facility] [address] [address]- 7059 Apr, [facility] [address] [address] 0141 Jan, Controlled type 2 diabetes mellitus without complication, without long-term current use of insulin E11.9 [facility] [address] [address]- 6487 Dec, Diabetes type 2, controlled E11.9 and Type 2 diabetes mellitus with diabetic polyneuropathy E11.42 [facility] [id number] [place] [address] 99605- 5945 Nov, Diabetes type 2, controlled E11.9 and 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 [facility] [id number] [place] [address] 70831- 1658 Oct, [facility] [id number] [place] [address] 40947- 3067 Oct, Diabetes type 2, controlled E11.9 [facility] [address] 22023- 6678 Sep, Diabetes type 2, controlled E11.9 [facility] [address] 9[address]99 -6600 Aug, Bronchitis J40 [facility] [id number] [place] [address] 77072- 0781 Aug, [facility] [address] 20869- 9379 Jul, Upper respiratory tract infection, unspecified type J06.9 ; Type 2 diabetes mellitus without complications E11.9 and longterm current use of insulin Z79.4 [place] [id number] [place] [address] 10597- 0967 Jul, [facility] [id number] [place] [address] 59146- 7373 Jun, Type 2 diabetes mellitus with diabetic polyneuropathy E11.42 ; Type 2 diabetes mellitus with hyperglycemia E11.65 and Encounter for immunization Z23 [facility] [id number] [place] [address] 08233- 5471 May, Controlled type 2 diabetes mellitus without complication, without long-term current use of insulin E11.9 [facility] [id number] [place] [address] 94196- 3463 Apr, Diabetes type 2, uncontrolled E11.65 [facility] [id number] [place] [address] 68961- 2283 Mar, [place] [id number] [place] [address] 31445- 1764 Mar, Controlled type 2 diabetes mellitus without complication, without long-term current use of insulin E11.9 [place] [id number] [place] [address] 47054- 3075 February, Diabetes type 2, controlled E11.9 [place] [address] 03899- 7859 February, Uncontrolled diabetes mellitus type 2 without complications , unspecified senior living insulin use status E11.65 and Chest pain, unspecified type R07.9 [place] [address] 44670- 7733 February, Diabetes type 2, uncontrolled E11.65 [place] [address] 28459- 1731 Jan, [place] [address] 41561- 0760 Jan, Coughing R05 ; Tinea versicolor B36.0 and Diabetes type 2, uncontrolled E11.65 [place] [id number] [place] [address] 46236- 5111 Dec, Cough R05 [place] [id number] [place] [address] 74810- 8151 Nov, [place] [id number] [place] [address] 20275- 1796 Oct, Unspecified mood [affective] disorder F39 [place] [id number] [place] [address] 93153- 5357 Oct, Cough R05 and Diabetes type 2, controlled E11.9 [place] [id number] [place] [address] 68143- 9290 Oct, Cough R05 [place] [id number] [place] [address] 51007- 3227 06 Gopal, 2016 Abdominal pain R10.9 ; Cough R05 ; PND (post-nasal drip) R09.82 and GERD (gastroesophageal reflux disease) K21.9 [facility] [address] 62586- 6806 Sep, Unspecified mood [affective] disorder F39 [facility] [address] 63126- 9742 Aug, [facility] [address] 49764- 7708 Aug, [facility] [address] 14665- 3409 Aug, [facility] [address] 00717- 5804 Aug, [facility] [address] 02506- 1283 Aug, Unspecified mood [affective] disorder F39 [facility] [id number] [place] [address] 14634- 3484 Aug, [facility] [address] 64495- 4073 Aug, [facility] [id number] [place] [address] 18723- 9822 Jul, Tooth abscess K04.7 [facility] [address] 59786- 0262 Jul, Diabetes type 2, controlled E11.9 [facility] [id number] [place] [address] 45852- 4690 Jul, [facility] [address] 71113- 6916 Jul, [facility] [id number] [place] [address] 27770- 8600 Jun, [facility] [address] 93251- 1026 30 Jun, 2015 Diabetes type 2, controlled 250.00 [facility] [address] [address]- 7087 17 Jun, 2015 [facility] [id number] [place] [address] 81428- 3797 15 Jun, 2015 Affective disorder 296.90 [facility] [id number] [place] [address] 09520- 3416 Jun, [facility] [id number] [place] [address] 37871- 7952 May, Affective disorder 296.90 [facility] [id number] [place] [address] 32946- 1621 May, Diabetes mellitus 250.00 [facility] [id number] [place] [address] 655428- 0244 Apr, Episodic mood disorder 296.90 [facility] [id number] [place] [address] 61353- 8248 Mar, Episodic mood disorder 296.90 [facility] [id number] [place] [address] 47958- 0877 February, Unspecified episodic mood disorder 296.90 [facility] [id number] [place] [address] 41067- 7782 14 Jan, 2015 [facility] [address] [address]- 5865 Jan, [facility] [address] [address]- 6923 Dec, [facility] [id number] [place] [address] 91201- 3923 Dec, [facility] [address] [address] 2546 Dec, [facility] [id number] [place] [address] 05253- 1831 Dec, [facility] [place] [facility] [address] [id number] [place] [address]- 1126 Dec, [facility] [place] [facility] [address] [id number] [place] [address]- 6177 Dec, [facility] [place] [facility] [address] [id number] [place] [address]- 4009 Dec, [facility] [place] [facility] [address] [id number] [place] [address]- 1566 Dec, [facility] [place] [facility] [address] [id number] [place] [address]- 7049 Nov, [facility] [place] [facility] [address] [id number] [place] [address]- 5638 Nov, 2014 [facility] [place] [facility] [address] [facility] [id number] [place] [address]- 6417 Nov, [facility] [place] [facility] [address] [id number] [place] [address]- 6736 Nov, [facility] [place] [facility] [address] [id number] [place] [address]- 1947 Nov, [facility] [place] [facility] [address] [facility] [id number] [place] [address]- 3356 Nov, [facility] [place] [facility] [address] [id number] [address]- 8783 Oct, [facility] [place] [facility] [address] [id number] [address]- 9386 Oct, [facility] [place] [facility] [address] [id number] [place] [address]- 6295 Oct, [facility] [place] [facility] [address] [id number] [place] [address]- 9483 Oct, [facility] [place] [facility] [address] [facility] [id number] [place] [address]- 9456 Oct, [facility] [place] [facility] [address] [id number] [place] [address]- 1640 Oct, [facility] [place] [facility] [address] [id number] [place] [address]- 0992 Oct, [facility] [place] [facility] [address] [id number] [place] [address]- 9938 Oct, [facility] [place] [facility] [address] [id number] [place] [address]- 5236 Oct, [facility] [place] [facility] [address] [id number] [place] [address]- 3284 Oct, [facility] [place] [facility] [address] [id number] [place] [address]- 8860 Oct, [facility] [place] [facility] [address] [id number] [place] [address]- 0657 Oct, [facility] [place] [facility] [address] [id number] [place] [address]- 9294 Oct, [facility] [place] [facility] [address] [id number] [place] [address]- 2900 Oct, [facility] [place] [facility] [address] [id number] [place] [address]- 6656 Oct, [facility] [place] [facility] [address] [id number] [place] [address]- 1556 Oct, [facility] [place] [facility] [address] [id number] [place] [address]- 5423 Oct, [facility] [place] [facility] [address] [id number] [place] [address]- 1023 Oct, [facility] [place] [facility] [address] [id number] [place] [address]- 0259 Sep, [facility] [place] [facility] [address] [id number] [place] [address]- 7401 Sep, [facility] [place] [facility] [address] [id number] [place] [address]- 2092 Sep, [facility] [place] [facility] [address] [id number] [place] 0879 Sep, [facility] [place] [facility] [address] [id number] [place] 7449 Sep, [facility] [place] [facility] [address] [id number] [place] [address]- 0606 Sep, [facility] [place] [facility] [address] [id number] [place] [address]- 2817 Aug, [facility] [place] [facility] [address] [id number] [place] [address]- 2840 Aug, [facility] [place] [facility] [address] [id number] [place] [address]- 6813 Aug, [facility] [place] [facility] [address] [id number] [place] [address]- 5029 Aug, [facility] [place] [facility] [address] [id number] [place] [address]- 5941 Jul, [facility] [place] [facility] [address] [id number] [place] [address]- 0060 Jul, [facility] [place] [facility] [address] [id number] [place] [address]- 9439 Jul, [facility] [place] [facility] [address] [id number] [place] [address]- 9085 Jul, [facility] [place] [facility] [address] [id number] [place] [address]- 6102 Jul, [facility] [place] [facility] [address] [id number] [place] [address]- 9112 Jul, [facility] [place] [facility] [address] [id number] [place] 3830 Jul, [facility] [place] [facility] [address] [id number] [place] [address]- 1743 Jul, [facility] [place] [facility] [address] [id number] [place] [address]- 8899 May, [facility] [place] [facility] [address] [id number] [place] [address]- 2686 May, [facility] [place] [facility] [address] [id number] [place] [address]- 8684 Apr, [facility] [place] [facility] [address] [id number] [place] [address]- 9774 Apr, [facility] [place] [facility] [address] [id number] [place] [address]- 1030 Mar, [facility] [place] [facility] [address] [id number] [place] [address]- 0045 Mar, [facility] [place] [facility] [address] [id number] [place] [address]- 7559 Mar, [facility] [place] [facility] [address] [id number] [place] [address]- 7961 Mar, [facility] [place] [facility] [address] [id number] [place] [address]- 4659 Mar, [facility] [place] [facility] [address] [id number] [place] [address]- 0592 Mar, [facility] [place] [facility] [address] [id number] [place] [address]- 2803 Nov, [facility] [place] [facility] [address] [id number] [place] [address]- 6227 Nov, [facility] [place] [facility] [address] [id number] [place] [address]- 8179 Jun, [facility] [place] [facility] [address] [id number] [place] [address]- 7512 May, [facility] [place] [facility] [address] [id number] [place] [address]- 7579 Apr, [facility] [place] [facility] [address] [id number] [place] [address]- 5660 Apr, [facility] [place] [facility] [address] [id number] [place] [address]- 1557 Mar, [facility] [address] [id number] [place] [address]- 2258 Mar, [facility] [place] [facility] [address] [id number] [place] [address] 2546 Mar, [facility] [address] [id number] [place] [address]- 6053 February, [facility] [address] [id number] [place] [address]- 5117 Dec, [facility] [address] [id number] [place] [address]- 5105 Nov, [facility] [address] [id number] [place] [address]- 9783 Oct, [facility] [address] [id number] [place] [address]- 3503 Oct, [facility] [address] [id number] [place] [address]- 8982 Oct, [facility] [address] [id number] [place] [address]- 5584 Oct, [facility] [address] [id number] [place] [address]- 5138 Sep, [facility] [address] [id number] [place] [address]- 8115 Sep, [facility] [address] [id number] [place] [address]- 2428 Sep, [facility] [place] [facility] [address] [id number] [place] [address]- 1256 Sep, [facility] [place] [facility] [address] [id number] [place] [address]- 6316 Sep, [facility] [address] [id number] [place] [address]- 9189 Sep, [facility] [address] [address]- 5346 Sep, [facility] [address] [address]- 2546 Sep, [facility] [address] [address]- 2546 Sep, [facility] [id number] [place] [address] 80596- 2546 Sep, [facility] [id number] [place] [address] 04482- 2546 Sep, [facility] [id number] [place] [address] 97343- 2726 Aug, [facility] [id number] [place] [address] 47238- 2546 Aug, [facility] [id number] [place] [address] 89410 2546 Aug, [facility] [id number] [place] [address] 04122- 5246 Jul, [facility] [id number] [place] [address] 40918- 8546 Jul, [facility] [address] [address]- 2546 Dec, [facility] [address] [address] 2546 Aug, [facility] [id number] [address]- 5826 Mar, IMMUNIZATIONS No Known Immunizations SOCIAL HISTORY Never Assessed REASON FOR VISIT PLAN OF CARE VITAL SIGNS MEDICATIONS Medication Instructions Dosage Frequency Start Date End Date Duration Status Meloxicam 15 mg Orally Once a day 1 tablet 24h Oct, February, 30 day(s) Active RESULTS No Results PROCEDURES No Known [...]
--- OUTSIDE RECORDS SUMMARY | 2018-08-12 11:30 | XMS REPORT ---
Author Author MARIA GRAHAM Organization [facility] Address [address] [place] [address] Care Team Providers Care Tool Maintenance Technician Name Role Phone MARIA GRAHAM Unavailable PROBLEMS Type Condition ICD9-CM Code SAQ19-ZF Code Onset Dates Condition Status SNOMED Code Problem Diabetes type 2, controlled E11.9 Active 96695274 Problem Diabetes type 2, uncontrolled E11.65 Active 343348320 Problem Hypertension, benign I10 Active 47853064 Problem Primary insomnia F51.01 Active 053329640 Problem Mood disorder F39 Active 92125687 Problem Primary osteoarthritis involving multiple joints M15.0 Active 520057522 Problem 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 Active 569366077 Problem Type 2 diabetes mellitus with diabetic polyneuropathy E11.42 Active 66151346 Problem Type 2 diabetes mellitus with hyperglycemia E11.65 Active 203831541170025 Problem Type 2 diabetes mellitus without complications E11.9 Active 339710875 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 221947577 ALLERGIES No Information ENCOUNTERS Encounter Location Date Diagnosis [facility] [id number] [place] [address] 61096- 4802 Mar, [facility] [id number] [place] [address] 18421- 4138 February, [facility] [id number] [place] [address] 98314- 4964 Jan, [facility] [id number] [place] [address] 09616- 6402 15 Nov, 2017 Controlled type 2 diabetes mellitus without complication, without long-term current use of insulin E11.9 [facility] [id number] [place] [address] 48904- 8112 02 Nov, 2017 [facility] [id number] [place] [address] 20879- 1481 Oct, [facility] [address] [address] 2464 Oct, Type 2 diabetes mellitus with diabetic polyneuropathy E11.42 and Primary osteoarthritis involving multiple joints M15.0 [facility] [address] [address] 8074 Oct, Type 2 diabetes mellitus with diabetic polyneuropathy E11.42 ; Primary osteoarthritis involving multiple joints M15.0 and Viral upper respiratory tract infection J06.9 [facility] [address] [address] 1600 Sep, Diabetes type 2, controlled E11.9 [facility] [address] [address] 6631 Jun, Uncontrolled diabetes mellitus type 2 without complications , 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 [place] [address] [address] 4096 Jun, Bronchitis J40 [facility] [address] [address] 7586 May, Controlled type 2 diabetes mellitus without complication, without long-term current use of insulin E11.9 [facility] [address] [address]- 8446 Apr, Type 2 diabetes mellitus without complications E11.9 [facility] [address] [address]- 3233 Apr, [facility] [address] [address]- 4392 Jan, Controlled type 2 diabetes mellitus without complication, without long-term current use of insulin E11.9 [facility] [address] [address]- 6954 Dec, Diabetes type 2, controlled E11.9 and Type 2 diabetes mellitus with diabetic polyneuropathy E11.42 [facility] [id number] [place] [address] 69053- 1207 Nov, Diabetes type 2, controlled E11.9 and 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 [facility] [id number] [place] [address] 12244- 0440 Oct, [facility] [id number] [place] [address] 63948- 4999 Oct, Diabetes type 2, controlled E11.9 [facility] [address] 93523- 4149 Sep, Diabetes type 2, controlled E11.9 [facility] [address] 95258 -6517 Aug, Bronchitis J40 [facility] [id number] [place] [address] 57962- 3424 Aug, [facility] [address] 83983- 2524 Jul, Upper respiratory tract infection, unspecified type J06.9 ; Type 2 diabetes mellitus without complications E11.9 and snf current use of insulin Z79.4 [facility] [facility] [id number] [place] [address] 76801- 1194 Jul, [facility] [id number] [place] [address] 93850- 0159 Jun, Type 2 diabetes mellitus with diabetic polyneuropathy E11.42 ; Type 2 diabetes mellitus with hyperglycemia E11.65 and Encounter for immunization Z23 [facility] [id number] [place] [address] 87289- 1550 May, Controlled type 2 diabetes mellitus without complication, without long-term current use of insulin E11.9 [facility] [id number] [place] [address] 62265- 1419 Apr, Diabetes type 2, uncontrolled E11.65 [facility] [id number] [place] [address] 26852- 4864 Mar, [facility] [facility] [id number] [place] [address] 94915- 9588 Mar, Controlled type 2 diabetes mellitus without complication, without long-term current use of insulin E11.9 [facility] [id number] [place] [address] 31507- 8691 February, Diabetes type 2, controlled E11.9 [place] [facility] [address] 99186- 7553 February, Uncontrolled diabetes mellitus type 2 without complications , unspecified shelter insulin use status E11.65 and Chest pain, unspecified type R07.9 [facility] [address] 46907- 5128 February, Diabetes type 2, uncontrolled E11.65 [place] [facility] [address] 05296- 6694 Jan, [facility] [facility] [address] 97293- 2630 Jan, Coughing R05 ; Tinea versicolor B36.0 and Diabetes type 2, uncontrolled E11.65 [facility] [id number] [place] [address] 58217- 9683 Dec, Cough R05 [facility] [id number] [place] [address] 46419- 4686 Nov, [facility] [id number] [place] [address] 98664- 6542 Oct, Unspecified mood [affective] disorder F39 [facility] [id number] [place] [address] 89332- 8983 Oct, Cough R05 and Diabetes type 2, controlled E11.9 [facility] [id number] [place] [address] 19414- 4461 Oct, Cough R05 [facility] [id number] [place] [address] 72668- 0386 06 Gopal, 2016 Abdominal pain R10.9 ; Cough R05 ; PND (post-nasal drip) R09.82 and GERD (gastroesophageal reflux disease) K21.9 [facility] [address] 76731- 7561 Sep, Unspecified mood [affective] disorder F39 [facility] [address] 05075- 0558 Aug, [facility] [address] 68514- 0436 Aug, [facility] [address] 55519- 9345 Aug, [facility] [address] 67085- 2787 Aug, [facility] [address] 99697- 3443 Aug, Unspecified mood [affective] disorder F39 [facility] [id number] [place] [address] 80651- 2449 Aug, [facility] [address] 40467- 7129 Aug, [facility] [id number] [place] [address] 86574- 0511 Jul, Tooth abscess K04.7 [facility] [address] 32355- 5955 Jul, Diabetes type 2, controlled E11.9 [facility] [id number] [place] [address] 45409- 6919 Jul, [facility] [address] 30043- 5324 Jul, [facility] [id number] [place] [address] 19397- 0327 Jun, [facility] [address] 17217- 8476 30 Jun, 2015 Diabetes type 2, controlled 250.00 [facility] [address], [place] [address]- 5360 17 Jun, 2015 [facility] [address] [place] [address] 12265- 4427 15 Jun, 2015 Affective disorder 296.90 [facility] [id number] [place] [address] 58181- 5596 Jun, [facility] [id number] [place] [address] 00574- 2117 May, Affective disorder 296.90 [facility] [id number] [place] [address] 89277- 1330 May, Diabetes mellitus 250.00 [facility] [id number] [place] [address] 649770- 8106 Apr, Episodic mood disorder 296.90 [facility] [address] [place] [address] 85705- 3876 Mar, Episodic mood disorder 296.90 [facility] [id number] [place] [address] 41107- 5734 February, Unspecified episodic mood disorder 296.90 [facility] [address] [place] [address] 70447- 8277 14 Jan, 2015 [facility] [address], [place] [address]- 4663 Jan, [facility] [address], [place] [address]- 2984 Dec, [facility] [id number] [place] [address] 90083- 8948 Dec, [facility] [address], [place] [address] 2546 Dec, [facility] [id number] [place] [address] 66070- 6560 Dec, [facility] [place] [facility] [address] [id number] [place] [address]- 2544 Dec, [facility] [place] [facility] [address] [id number] [place] [address]- 6837 Dec, [facility] [place] [facility] [address] [id number] [place] [address]- 2133 Dec, [facility] [place] [facility] [address] [id number] [place] [address]- 4591 Dec, [facility] [place] [facility] [address] [id number] [place] [address]- 6560 Nov, [facility] [place] [facility] [address] [id number] [place] [address]- 7592 Nov, 2014 [facility] [place] [facility] [address] [facility] [id number] [place] [address]- 8297 Nov, [facility] [place] [facility] [address] [id number] [place] [address]- 6901 Nov, [facility] [place] [facility] [address] [id number] [place] [address]- 3872 Nov, [facility] [place] [facility] [address] [facility] [id number] [place] [address]- 0922 Nov, [facility] [place] [facility] [address] [id number] [address]- 0879 Oct, [facility] [place] [facility] [address] [id number], [place] [address]- 5259 Oct, [facility] [place] [facility] [address] [id number] [place] [address]- 0129 Oct, [facility] [place] [facility] [address] [id number] [place] [address]- 4975 Oct, [facility] [place] [facility] [address] [facility] [id number] [place] [address]- 3390 Oct, [facility] [place] [facility] [address] [id number] [place] [address]- 4791 Oct, [facility] [place] [facility] [address] [id number] [place] [address]- 1824 Oct, [facility] [place] [facility] [address] [id number] [place] [address]- 2729 Oct, [facility] [place] [facility] [address] [id number] [place] [address]- 5724 Oct, [facility] [place] [facility] [address] [id number] [place] [address]- 5640 Oct, [facility] [place] [facility] [address] [id number] [place] [address]- 4493 Oct, [facility] [place] [facility] [address] [id number] [place] [address]- 2698 Oct, [facility] [place] [facility] [address] [id number] [place] [address]- 5365 Oct, [facility] [place] [facility] [address] [id number] [place] [address]- 0161 Oct, [facility] [place] [facility] [address] [id number] [place] [address]- 2857 Oct, [facility] [place] [facility] [address] [id number] [place] [address]- 2249 Oct, [facility] [place] [facility] [address] [id number] [place] [address]- 6476 Oct, [facility] [place] [facility] [address] [id number] [place] [address]- 2399 Oct, [facility] [place] [facility] [address] [id number] [place] [address]- 1713 Sep, [facility] [place] [facility] [address] [id number] [place] [address]- 6118 Sep, [facility] [place] [facility] [address] [id number] [place] [address]- 1089 Sep, [facility] [place] [facility] [address] [id number] [place] 7674 Sep, [facility] [place] [facility] [address] [id number] [place] 1964 Sep, [facility] [place] [facility] [address] [id number] [place] [address]- 9526 Sep, [facility] [place] [facility] [address] [id number] [place] [address]- 2080 Aug, [facility] [place] [facility] [address] [id number] [place] [address]- 1704 Aug, [facility] [place] [facility] [address] [id number] [place] [address]- 8560 Aug, [facility] [place] [facility] [address] [id number] [place] [address]- 3350 Aug, [facility] [place] [facility] [address] [id number] [place] [address]- 1148 Jul, [facility] [place] [facility] [address] [id number] [place] [address]- 8272 Jul, [facility] [place] [facility] [address] [id number] [place] [address]- 8582 Jul, [facility] [place] [facility] [address] [id number] [place] [address]- 6064 Jul, [facility] [place] [facility] [address] [id number] [place] [address]- 2889 Jul, [facility] [place] [facility] [address] [id number] [place] [address]- 7285 Jul, [facility] [place] [facility] [address] [id number] [place] 5615 Jul, [facility] [place] [facility] [address] [id number] [place] [address]- 4536 Jul, [facility] [place] [facility] [address] [id number] [place] [address]- 3900 May, [facility] [place] [facility] [address] [id number] [place] [address]- 2098 May, [facility] [place] [facility] [address] [id number] [place] [address]- 9197 Apr, [facility] [place] [facility] [address] [id number] [place] [address]- 6513 Apr, [facility] [place] [facility] [address] [id number] [place] [address]- 2100 Mar, [facility] [place] [facility] [address] [id number] [place] [address]- 4874 Mar, [facility] [place] [facility] [address] [id number] [place] [address]- 4458 Mar, [facility] [place] [facility] [address] [id number] [place] [address]- 7267 Mar, [facility] [place] [facility] [address] [id number] [place] [address]- 3976 Mar, [facility] [place] [facility] [address] [id number] [place] [address]- 2517 Mar, [facility] [place] [facility] [address] [id number] [place] [address]- 6948 Nov, [facility] [place] [facility] [address] [id number] [place] [address]- 3561 Nov, [facility] [place] [facility] [address] [id number] [place] [address]- 9412 Jun, [facility] [place] [facility] [address] [id number] [place] [address]- 4759 May, [facility] [place] [facility] [address] [id number] [place] [address]- 8094 Apr, [facility] [place] [facility] [address] [id number] [place] [address]- 9118 Apr, [facility] [place] [facility] [address] [id number] [place] [address]- 8371 Mar, [facility] [address] [id number] [place] [address]- 9275 Mar, [facility] [place] [facility] [address] [id number] [place] [address] 2546 Mar, [facility] [address] [id number] [place] [address]- 4556 February, [facility] [address] [id number] [place] [address]- 7034 Dec, [facility] [address] [id number] [place] [address]- 8159 Nov, [facility] [address] [id number] [place] [address]- 0860 Oct, [facility] [address] [id number] [place] [address]- 3866 Oct, [facility] [address] [id number] [place] [address]- 2494 Oct, [facility] [address] [id number] [place] [address]- 3281 Oct, [facility] [address] [id number] [place] [address]- 4155 Sep, [facility] [address] [id number] [place] [address]- 3476 Sep, [facility] [address] [id number] [place] [address]- 9496 Sep, [facility] [place] [facility] [address] [id number] [place] [address]- 8646 Sep, [facility] [place] [facility] [address] [id number] [place] [address]- 2416 Sep, [facility] [address] [id number] [place] [address]- 3905 Sep, [facility] [address] [address]- 1991 Sep, [facility] [address] [address]- 8206 Sep, [facility] [address] [address]- 8235 Sep, [facility] [id number] [place] [address] 54104- 7652 Sep, [facility] [address] [place] [address] 98728- 7098 Sep, [facility] [id number] [place] [address] 58751- 0745 Aug, [facility] [address] [place] [address] 33721- 7541 Aug, [facility] [address] [place] [address] 45756- 2197 Aug, [facility] [address] [place] [address] 666512- 1825 Jul, [facility] [id number] [place] [address] 410705- 9068 Jul, [facility] [address], [place] [address]- 0491 Dec, [facility] [address] [address]- 3578 Aug, [facility] [id number] [address]- 3017 Mar, IMMUNIZATIONS No Known Immunizations SOCIAL HISTORY Never Assessed REASON FOR VISIT Lab (walk-in) PLAN OF CARE VITAL SIGNS MEDICATIONS Unknown Medications RESULTS No Results PROCEDURES Procedure Date Ordered Result Body Site LAB NOT BILLED BY [facility] Oct 30, 2017 VENIPMARITZA, ROUTINE* Oct 30, 2017 INSTRUCTIONS MEDICATIONS ADMINISTERED No Known Medications MEDICAL [...]
--- OUTSIDE RECORDS SUMMARY | 2018-08-12 11:31 | XMS REPORT ---
Author Author MARIA GRAHAM Organization [employer] Address Unknown Phone Unavailable Care Team Providers Care Agate Setter Name Role Phone MARIA GRAHAM CP Unavailable Allergies No Known Allergies Problems Problem Type Condition ICD-9 Code Onset Dates Condition Status Problem Essential hypertension, benign 401.1 Active Problem Hypoglycemia, unspecified 251.2 Active Problem [...] insurance Jun 06, 2015 test blood sugar Results No Known Results Summary Purpose [employer] Submission
--- OUTSIDE RECORDS SUMMARY | 2018-08-12 11:31 | XMS REPORT ---
Author Author MARIA GRAHAM Organization [facility] Address [address] [place] [address] Care Team Providers Care Switchboard Operator Assistant Name Role Phone GLADYS MARIA Unavailable PROBLEMS Type Condition ICD9-CM Code HGV54-MV Code Onset Dates Condition Status SNOMED Code Problem Diabetes type 2, controlled E11.9 Active 75129098 Problem Diabetes type 2, uncontrolled E11.65 Active 432538104 Problem Hypertension, benign I10 Active 34889101 Problem Primary insomnia F51.01 Active 621305328 Problem Mood disorder F39 Active 86258954 Problem Primary osteoarthritis involving multiple joints M15.0 Active 205819298 Problem 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 Active 504635458 Problem Type 2 diabetes mellitus with diabetic polyneuropathy E11.42 Active 72648932 Problem Type 2 diabetes mellitus with hyperglycemia E11.65 Active 011224350460154 Problem Type 2 diabetes mellitus without complications E11.9 Active 064262704 Problem intermediate designer current use of insulin Z79.4 Active 416041003 ALLERGIES No Information ENCOUNTERS Encounter Location Date Diagnosis [facility] [id number] [place] [address] 82180- 8347 15 Nov, 2017 Controlled type 2 diabetes mellitus without complication, without long-term current use of insulin E11.9 [facility] [id number] [place] [address] 69302- 5340 Nov, [facility] [id number] [place] [address] 56168- 9593 Oct, [facility] [id number] [place] [address] 09231- 3198 Oct, Type 2 diabetes mellitus with diabetic polyneuropathy E11.42 and Primary osteoarthritis involving multiple joints M15.0 [facility] [id number] [place] [address] 34021- 7314 Oct, Type 2 diabetes mellitus with diabetic polyneuropathy E11.42 ; Primary osteoarthritis involving multiple joints M15.0 and Viral upper respiratory tract infection J06.9 [facility] [id number] [place] [address] 97302- 0443 Sep, Diabetes type 2, controlled E11.9 [facility] [id number] [address] 9767 Jun, Uncontrolled diabetes mellitus type 2 without complications , unspecified usp insulin use status E11.65 [facility] [id number] [place] [address] 89751- 5051 Jun, Bronchitis J40 [facility] [id number] [place] [address] 73283- 8564 May, Controlled type 2 diabetes mellitus without complication, without long-term current use of insulin E11.9 [facility] [id number] [place] [address] 65602- 8331 Apr, Type 2 diabetes mellitus without complications E11.9 [facility] [id number] [place] [address] 43402- 5181 Apr, [facility] [id number] [place] [address] 40660- 7693 Jan, Controlled type 2 diabetes mellitus without complication, without long-term current use of insulin E11.9 [facility] [address] [address] 9879 Dec, Diabetes type 2, controlled E11.9 and Type 2 diabetes mellitus with diabetic polyneuropathy E11.42 [facility] [address] [address]- 6075 Nov, Diabetes type 2, controlled E11.9 and 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 [facility] [address] [address]- 0156 Oct, [facility] [id number] [place] [address] 28045- 3060 Oct, Diabetes type 2, controlled E11.9 [facility] [address] [address]- 3147 Sep, Diabetes type 2, controlled E11.9 [facility] [address] [address] Aug, Bronchitis J40 [facility] [id number] [place] [address] 76619- 7300 Aug, [facility] [id number] [place] [address] 47550- 6035 Jul, Upper respiratory tract infection, unspecified type J06.9 ; Type 2 diabetes mellitus without complications E11.9 and custodial current use of insulin Z79.4 [facility] [id number] [place] [address] 66937- 8044 Jul, [facility] [id number] [place] [address] 36240- 0430 Jun, Type 2 diabetes mellitus with diabetic polyneuropathy E11.42 ; Type 2 diabetes mellitus with hyperglycemia E11.65 and Encounter for immunization Z23 [facility] [id number] [place] [address] 49570- 3587 May, Controlled type 2 diabetes mellitus without complication, without long-term current use of insulin E11.9 [facility] [address] [address]- 4139 Apr, Diabetes type 2, uncontrolled E11.65 [facility] [address] [address]- 5075 Mar, [facility] [id number] [place] [address] 75395- 8890 Mar, Controlled type 2 diabetes mellitus without complication, without long-term current use of insulin E11.9 [facility] [address] [address]- 6454 February, Diabetes type 2, controlled E11.9 [facility] [id number] [place] [address] 98076- 3306 February, Uncontrolled diabetes mellitus type 2 without complications , unspecified usp insulin use status E11.65 and Chest pain, unspecified type R07.9 [facility] [id number] [place] [address] 31092- 4543 February, Diabetes type 2, uncontrolled E11.65 [facility] [id number] [place] [address] 87373- 7279 Jan, [facility] [id number] [place] [address] 00074- 2832 Jan, Coughing R05 ; Tinea versicolor B36.0 and Diabetes type 2, uncontrolled E11.65 [facility] [id number] [place] [address] 56661- 9281 Dec, Cough R05 [facility] [id number] [place] [address] 24178- 1908 Nov, [facility] [id number] [place] [address] 68294- 4591 Oct, Unspecified mood [affective] disorder F39 [facility] [id number] [place] [address] 18544- 6742 Oct, Cough R05 and Diabetes type 2, controlled E11.9 [facility] [id number] [place] [address] 73171- 7657 Oct, Cough R05 [facility] [place] [id number] [place] [address] 75974- 8948 Oct, Abdominal pain R10.9 ; Cough R05 ; PND (post-nasal drip) R09.82 and GERD (gastroesophageal reflux disease) K21.9 [facility] [id number] [place] [address] 98488- 7664 Sep, Unspecified mood [affective] disorder F39 [facility] [place] [id number] [place] [address] 96796- 4867 Aug, [facility] [address] [address]- 1108 Aug, [facility] [id number] [place] [address] 03709- 3184 Aug, [facility] [id number] [place] [address] 97291- 5241 Aug, [facility] [id number] [place] [address] 98006- 0471 Aug, Unspecified mood [affective] disorder F39 [facility] [id number] [place] [address] 59516- 5562 Aug, [facility] [id number] [place] [address] 45694- 4906 Aug, [facility] [id number] [place] [address] 98036- 5064 Jul, Tooth abscess K04.7 [facility] [id number] [place] [address] 70065- 9555 Jul, Diabetes type 2, controlled E11.9 [facility] [id number] [place] [address] 60402- 0450 Jul, [facility] [id number] [place] [address] 92940- 4523 Jul, [facility] [address] [place] [address] 61123- 0246 Jun, [facility] [address] [place] [address] 86680- 3695 Jun, Diabetes type 2, controlled 250.00 [facility] [id number] [place] [address] 20559- 5694 17 Jun, 2015 [facility] [address] [place] [address] 56204- 0537 15 Jun, 2015 Affective disorder 296.90 [facility] [address] [address]- 2546 Jun, [facility] [address] [address]- 2376 May, Affective disorder 296.90 [facility] [address] [address]- 8276 May, Diabetes mellitus 250.00 [facility] [id number] [place] [address] 21931- 6110 Apr, Episodic mood disorder 296.90 [facility] [address] [address]- 8621 Mar, Episodic mood disorder 296.90 [facility] [address] [address] 2546 February, Unspecified episodic mood disorder 296.90 [facility] [address] [address]- 5140 Jan, [facility] [address] [address]- 5197 Jan, [facility] [address] [address]- 9706 Dec, [facility] [address], [place] [address]- 9966 Dec, [facility] [address] [address]- 2546 Dec, [facility] [address], [place] [address]- 2546 Dec, [facility] [address], [place] [address]- 2546 Dec, [facility] [address] [address]- 2546 Dec, [facility] [address] [address]- 2542 Dec, [facility] [place] [facility] [address] [id number] [place] [address]- 5953 Dec, [facility] [place] [facility] [address] [id number] [place] [address]- 6307 Nov, [facility] [place] [facility] [address] [id number] [place] [address]- 1944 Nov, [facility] [place] [facility] [address] [id number] [place] [address]- 4653 Nov, [facility] [place] [facility] [address] [id number] [place] [address]- 4473 Nov, [facility] [place] [facility] [address] [id number] [place] [address]- 9096 Nov, [facility] [place] [facility] [address] [id number] [place] [address]- 4999 Nov, [facility] [place] [facility] [address] [id number] [address]- 3009 Oct, [facility] [place] [facility] [address] [id number] [place] [address]- 1104 Oct, [facility] [place] [facility] [address] [id number] [place] [address]- 9155 Oct, [facility] [place] [facility] [address] [id number] [address]- 5631 Oct, [facility] [place] [facility] [address] [id number] [address]- 1482 Oct, [facility] [place] [facility] [address] [id number] [place] [address]- 0740 Oct, [facility] [place] [facility] [address] [id number] [address]- 6141 Oct, [facility] [place] [facility] [address] [id number] [place] [address]- 9979 Oct, [facility] [place] [facility] [address] [id number] [place] [address]- 4969 15 Oct, 2014 [facility] [address] [id number] [place] [address]- 4590 15 Oct, 2014 [facility] [place] [facility] [address] [id number] [place] [address]- 9800 Oct, [facility] [place] [facility] [address] [id number] [place] [address]- 9994 Oct, [facility] [place] [facility] [address] [id number] [place] [address]- 3992 Oct, [facility] [place] [facility] [address] [id number] [place] [address]- 9705 Oct, [facility] [place] [facility] [address] [id number] [place] [address]- 9323 Oct, [facility] [place] [facility] [address] [id number] [place] [address]- 3214 Oct, [facility] [place] [facility] [address] [id number] [place] [address]- 8173 Oct, [facility] [place] [facility] [address] [id number] [place] [address]- 6447 Oct, [facility] [place] [facility] [address] [facility] [id number] [place] [address]- 8821 08 Sep, 2014 [facility] [place] [facility] [address] [id number] [place] [address]- 6695 Sep, [facility] [place] [facility] [address] [id number] [place] [address]- 7212 Sep, [facility] [place] [facility] [address] [id number] [place] [address]- 1658 Sep, [facility] [place] [facility] [address] [id number] [place] [address]- 9200 Sep, [facility] [place] [facility] [address] [id number] [place] [address]- 2730 Sep, [facility] [place] [facility] [address] [id number] [place] [address]- 3148 Aug, [facility] [place] [facility] [address] [id number] [place] 9295 Aug, [facility] [place] [facility] [address] [id number] [place] [address]- 5696 Aug, [facility] [place] [facility] [address] [id number] [place] [address]- 4989 Aug, [facility] [place] [facility] [address] [id number] [place] [address]- 3793 Jul, [facility] [place] [facility] [address] [id number] [place] [address]- 6283 Jul, [facility] [place] [facility] [address] [id number] [place] [address]- 9965 Jul, [facility] [place] [facility] [address] [id number] [place] [address]- 2504 Jul, [facility] [place] [facility] [address] [id number] [place] [address]- 5186 Jul, [facility] [place] [facility] [address] [id number] [place] [address]- 1482 Jul, [facility] [place] [facility] [address] [id number] [place] [address]- 8196 Jul, [facility] [place] [facility] [address] [id number] [place] [address]- 7218 Jul, [facility] [place] [facility] [address] [id number] [place] [address]- 9458 May, [facility] [place] [facility] [address] [id number] [place] [address]- 1243 May, [facility] [place] [facility] [address] [id number] [place] [address]- 1581 Apr, [facility] [place] [facility] [address] [id number] [place] [address]- 0804 Apr, [facility] [place] [facility] [address] [id number] [place] [address]- 5294 Mar, [facility] [place] [facility] [address] [id number] [place] [address]- 2951 Mar, [facility] [place] [facility] [address] [id number] [place] [address]- 2145 Mar, [facility] [place] [facility] [address] [id number] [place] [address]- 4106 Mar, [facility] [place] [facility] [address] [id number] [place] [address]- 5600 Mar, [facility] [place] [facility] [address] [id number] [place] [address]- 8856 Mar, [facility] [place] [facility] [address] [id number] [place] [address]- 6512 Nov, [facility] [place] [facility] [address] [id number] [place] [address]- 6107 Nov, [facility] [place] [facility] [address] [id number] [place] [address]- 1307 Jun, [facility] [place] [facility] [address] [id number] [place] [address]- 1483 May, [facility] [place] [facility] [address] [id number] [place] [address]- 7299 Apr, [facility] [place] [facility] [address] [id number] [place] [address]- 2946 Apr, [facility] [place] [facility] [address] [id number] [place] [address]- 8821 Mar, [facility] [place] [facility] [address] [id number] [place] [address]- 5461 Mar, [facility] [place] [facility] [address] [id number] [place] [address]- 9160 Mar, [facility] [place] [facility] [address] [id number] [place] [address]- 2546 10 Feb, 2013 [facility] [address] [id number] [place] [address]- 9616 Dec, [facility] [place] [facility] [address] [id number] [place] [address]- 2546 Nov, [facility] [address] [id number] [place] [address]- 2956 Oct, [facility] [address] [id number] [place] [address]- 2546 Oct, [facility] [address] [id number] [place] [address]- 7626 Oct, [facility] [address] [id number] [place] [address]- 2546 Oct, [facility] [address] [id number] [place] [address]- 4023 Sep, [facility] [address] [id number] [place] [address]- 2556 Sep, [facility] [address] [id number] [place] [address]- 5746 Sep, [facility] [address] [id number] [place] [address]- 3986 Sep, [facility] [address] [id number] [place] [address]- 1576 Sep, [facility] [address] [id number] [place] [address]- 2546 Sep, [facility] [place] [facility] [address] [id number] [place] [address]- 8816 Sep, [facility] [place] [facility] [address] [id number] [place] [address]- 2546 04 Sep, 2012 [facility] [address] [id number] [place] [address]- 2546 Sep, [facility] [id number] [address]- 0967 Sep, [facility] [address] [place] [address]- 0306 Sep, [facility] [address] [address]- 2957 Aug, [facility] [address], [place] [address]- 5757 Aug, [facility] [address] [address]- 5204 Aug, [facility] [address] [place] [address] 45706- 2033 Jul, [facility] [address], [place] [address]- 9366 Jul, [facility] [address] [address]- 3600 Dec, [facility] [id number] [address]- 1829 Aug, [facility] [address] [place] [address]- 7689 Mar, IMMUNIZATIONS No Known Immunizations SOCIAL HISTORY Never Assessed REASON FOR VISIT Controlled Med Refill PLAN OF CARE VITAL SIGNS MEDICATIONS Medication Instructions Dosage Frequency Start Date End Date Duration Status Ativan 0.5 MG Orally 2 times a day 1 tablet as needed 12h 23 Feb, 2016 Active RESULTS No Results PROCEDURES No [...]
--- OUTSIDE RECORDS SUMMARY | 2018-08-12 11:31 | XMS REPORT ---
Author MARIA Escobedo [facility] [employer] Address Unknown Phone Unavailable Care Team Providers Care Bullard Machine Operator Name Role Phone MARIA GRAHAM CP Unavailable Allergies, Adverse Reactions, Alerts Substance Reaction Event Type MetFORMIN HCl ER diarrhea Drug Allergy GlipiZIDE low blood sugar Drug Allergy Problems Problem Type Condition Code Onset Dates Condition Status Problem Primary insomnia F51.01 Active Problem Hypertension, benign I10 Active Problem Mood disorder F39 Active Assessment Diabetes type 2, controlled E11.9 Active Problem Diabetes type 2, controlled E11.9 Active Assessment Cough R05 Active Medications Medication Code System Code Instructions Start Date End Date Status Dosage PredniSONE [facility] [address]-86 20 MG Orally Once a day Oct 31, 2015 Nov 05, [address] [facility] [address]-27 100 MG Orally every 12 hrs Oct 31, 2015 Nov 10, [address] [facility] [address]-56 40 MG Orally Once a day Oct 10, [address] [facility] 93188397227 100 MG TAKE ONE TABLET BY MOUTH THREE TIMES DAILY Proventil HFA [facility] [address]-68 108 (90 Base) MCG/ACT Inhalation every 4 hrs Oct 26, 2015 2 puffs as needed Lisinopril [facility] 47227877056 5 MG TAKE ONE TABLET BY MOUTH DAILY Tessalon Perles [facility] [address]-20 100 MG Orally Three times a day Oct 26, 2015 1 capsule as needed Symbicort [facility] [address]-77 160-4.5 MCG/ACT Inhalation Twice a day Oct 26, 2015 2 puffs Procedures Procedure Coding System Code Date GLYCATED HEMOGLOBIN TEST CPT-4 39608 Oct 31, 2015 CHEST X-RAY CPT-4 17276 Oct 31, 2015 MEASURE BLOOD OXYGEN LEVEL CPT-4 67119 Oct 31, 2015 THER/PROPH/DIAG INJ, SC/IM CPT-4 77589 Oct 31, 2015 SOLUMEDROL (UP TO 125 MG) CPT-4 J2930 Oct 31, 2015 VENIPUNCT, ROUTINE* CPT-4 82492 Oct 31, 2015 COMPLETE CBC W/AUTO DIFF WBC CPT-4 66504 Oct 31, 2015 ASSAY THYROID STIM HORMONE CPT-4 64637 Oct 31, 2015 COMPREHEN METABOLIC PANEL CPT-4 62240 Oct 31, 2015 LIPID PANEL CPT-4 42821 Oct 31, 2015 Vital Signs Date/Time: Oct 31, 2015 Temperature 98.0 F Weight 226.6 lbs Height 68 in Oximetry 97 % Blood Pressure Diastolic 82 mmHg Blood Pressure Systolic 120 mmHg Cardiac Monitoring Heart Rate 110 bpm BMI 34.45 Index Results Name Result Date Reference Range Unit Abnormality Flag A1C (IN HOUSE) ----A1C IN HOUSE 9.1 20151031 4.3 - 5.6 % ----Previous A1c 8.5 [id number] ----Lot [id number] ----Exp date [id number] ROUTINE VENIPUNCTURE Summary Purpose eClinicalWorks Submission
--- OUTSIDE RECORDS SUMMARY | 2018-08-12 11:31 | XMS REPORT ---
Author Author VALENCIA PHELAN Organization eClinical[employer] Address Unknown Phone Unavailable Care Team Providers Care Professor Of Environmental Studies Name Role Phone VALENCIA PHELAN CP Unavailable [...] complication 455.6 Active Medications No Known Medications Results No Known Results Summary Purpose eClinicalWorks Submission
--- OUTSIDE RECORDS SUMMARY | 2018-08-12 11:31 | XMS REPORT ---
Author Author VALENCIA PHELAN [facility] eClinicalWorks Address Unknown Phone Unavailable Care Team Providers Care Playground Supervisor Name Role Phone VALENCIA PHELAN CP Unavailable Allergies No Known Allergies Problems Problem Type Condition Code Onset Dates Condition Status Problem Primary insomnia F51.01 Active Problem Hypertension, benign I10 Active Problem Mood disorder F39 Active Problem Diabetes type 2, controlled E11.9 Active Medications Medication Code System Code Instructions Start Date End Date Status Dosage Victoza [facility] [address]-79 18 MG/3ML Subcutaneous Once a day Aug 10, 2015 Sep 09, 2015 0.2 ml Results No Known Results Summary Purpose eClinicalWorks Submission
--- OUTSIDE RECORDS SUMMARY | 2018-08-12 11:31 | XMS REPORT ---
Author Author [facility] Organization eClinical[employer] Address Unknown Phone Unavailable Care Team Providers Care Radiation Control Technician Name Role Phone [facility] CP Unavailable Allergies No Known Allergies Problems Problem Type Condition Code Onset Dates Condition Status Problem Primary insomnia F51.01 Active Problem Hypertension, benign I10 Active Problem Mood disorder F39 Active Problem Diabetes type 2, controlled E11.9 Active Assessment Unspecified mood [affective] disorder F39 Active Medications No Known Medications Procedures Procedure Coding System Code Date [facility] CPT-4 S0280 Oct 31, 2015 Results No Known Results Summary Purpose eClinicalWorks Submission
--- OUTSIDE RECORDS SUMMARY | 2018-08-12 11:31 | XMS REPORT ---
Author AVTAR Rosenberg [facility] eClinicalWorks Address Unknown Phone Unavailable Care Team Providers Care Director Patient Name Role Phone AVTAR ONEILL CP Unavailable [...] Instructions Start Date End Date Status Dosage Tessalon Perles [facility] [address]-27 100 MG Orally Three times a day Oct 26, 2015 1 capsule as needed Nexium [facility] [address]-25 40 MG Orally Once a day Oct 10, 2015 1 capsule [address] [facility] 48583594976 5 MG TAKE ONE TABLET BY MOUTH DAILY Symbicort [facility] [address]-48 160-4.5 MCG/ACT Inhalation Twice a day Oct 26, 2015 2 puffs Proventil HFA [facility] [address]-61 108 (90 Base) MCG/ACT Inhalation every 4 hrs Oct 26, 2015 2 puffs as needed Allopurinol [facility] 81796316599 100 MG TAKE ONE TABLET BY MOUTH THREE TIMES DAILY Procedures Procedure Coding System Code Date NEB/MDI RX INITIAL CPT-4 29002 Oct 26, 2015 Office Visit, Est Pt., Level 4 CPT-4 34424 Oct 26, 2015 ALBUTEROL INHAL UNIT DOSE 1 MG CPT-4 J7613 Oct 26, 2015 THER/PROPH/DIAG INJ, SC/IM CPT-4 55293 Oct 26, 2015 DEXAMETHASONE 4MG/ML (PER 1 MG) CPT-4 J1100 Oct 26, 2015 DEPO MEDROL 40 MG/ML CPT-4 J1030 Oct 26, 2015 Vital Signs Date/Time: Oct 26, 2015 Temperature 97.9 F Weight 231.8 lbs Height 68 in BMI 35.24 Index Blood Pressure Diastolic 92 mmHg Blood Pressure Systolic 138 mmHg Cardiac Monitoring Heart Rate 112 bpm Results No Known Results Summary Purpose eClinicalWorks Submission
--- OUTSIDE RECORDS SUMMARY | 2018-08-12 11:32 | XMS REPORT ---
Author Author MARIA GRAHAM Organization [facility] Address [address] [place] [address] Care Team Providers Care Bonus Clerk Name Role Phone GLADYS MARIA Unavailable PROBLEMS Type Condition ICD9-CM Code RYR42-WY Code Onset Dates Condition Status SNOMED Code Problem Diabetes type 2, controlled E11.9 Active 55009567 Problem Diabetes type 2, uncontrolled E11.65 Active 742200953 Problem Hypertension, benign I10 Active 94229249 Problem Primary insomnia F51.01 Active 670024955 Problem Mood disorder F39 Active 57155516 Problem Primary osteoarthritis involving multiple joints M15.0 Active 039106796 Problem 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 Active 377913062 Problem Type 2 diabetes mellitus with diabetic polyneuropathy E11.42 Active 24273416 Problem Type 2 diabetes mellitus with hyperglycemia E11.65 Active 317950881094406 Problem Type 2 diabetes mellitus without complications E11.9 Active 481362954 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 Active 556718276 ALLERGIES Substance Reaction Event Type Date Status MetFORMIN HCl ER diarrhea Drug Allergy Jun, Active GlipiZIDE low blood sugar Drug Allergy Jun, Active ENCOUNTERS Encounter Location Date Diagnosis [facility] [id number] [place] [address] 99885- 9920 Nov, Controlled type 2 diabetes mellitus without complication, without long-term current use of insulin E11.9 [facility] [id number] [address] 48[address] Nov, [facility] [id number] [place] [address] 27084- 2518 Oct, [facility] [id number] [place] [address] 54123- 4050 Oct, Type 2 diabetes mellitus with diabetic polyneuropathy E11.42 and Primary osteoarthritis involving multiple joints M15.0 [facility] [address] [address] 8665 Oct, Type 2 diabetes mellitus with diabetic polyneuropathy E11.42 ; Primary osteoarthritis involving multiple joints M15.0 and Viral upper respiratory tract infection J06.9 [facility] [address] [address] 46[address] Sep, Diabetes type 2, controlled E11.9 [facility] [id number] [place] [address] 89497- 1040 Jun, Uncontrolled diabetes mellitus type 2 without complications , 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 [facility] [id number] [place] [address] 61198- 3806 07 Jun, 2017 Bronchitis J40 [facility] [id number] [place] [address] 96366- 5781 May, Controlled type 2 diabetes mellitus without complication, without long-term current use of insulin E11.9 [facility] [address] [address] 8271 Apr, Type 2 diabetes mellitus without complications E11.9 [facility] [id number] [address] 9[address] Apr, [facility] [address] [address] 7022 Jan, Controlled type 2 diabetes mellitus without complication, without long-term current use of insulin E11.9 [facility] [address] [address] 6723 Dec, Diabetes type 2, controlled E11.9 and Type 2 diabetes mellitus with diabetic polyneuropathy E11.42 [facility] [id number], [place] [address]- 0193 Nov, Diabetes type 2, controlled E11.9 and 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 [facility] [id number] [place] [address] 37962- 5256 Oct, [facility] [address], [place] [address] 4527 Oct, Diabetes type 2, controlled E11.9 [facility] [address] [place] [address] 82347- 1112 Sep, Diabetes type 2, controlled E11.9 [facility] [address] [place] [address] 08129 -9080 Aug, Bronchitis J40 [facility] [id number] [place] [address] 00094- 5727 Aug, [facility] [id number] [place] [address] 98026- 6944 Jul, Upper respiratory tract infection, unspecified type J06.9 ; Type 2 diabetes mellitus without complications E11.9 and longterm current use of insulin Z79.4 [facility] [id number] [place] [address] 82532- 4731 Jul, [facility] [id number] [place] [address] 44956- 0334 Jun, Type 2 diabetes mellitus with diabetic polyneuropathy E11.42 ; Type 2 diabetes mellitus with hyperglycemia E11.65 and Encounter for immunization Z23 [facility] [address] [place] [address] 89117- 5377 May, Controlled type 2 diabetes mellitus without complication, without long-term current use of insulin E11.9 [facility] [address] [address]- 0211 Apr, Diabetes type 2, uncontrolled E11.65 [facility] [id number] [place] [address] 85903- 5322 Mar, [facility] [id number] [place] [address] 17915- 3242 Mar, Controlled type 2 diabetes mellitus without complication, without long-term current use of insulin E11.9 [facility] [id number] [place] [address] 43383- 1761 February, Diabetes type 2, controlled E11.9 [facility] [id number] [place] [address] 07599- 3558 February, Uncontrolled diabetes mellitus type 2 without complications , 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 and Chest pain, unspecified type R07.9 [facility] [id number] [place] [address] 71580- 0409 February, Diabetes type 2, uncontrolled E11.65 [facility] [address] [address]25- 4895 Jan, [facility] [address] 07405- 4168 Jan, Coughing R05 ; Tinea versicolor B36.0 and Diabetes type 2, uncontrolled E11.65 [facility] [id number] [place] [address] 48728- 2584 Dec, Cough R05 [facility] [id number] [place] [address] 39834- 2534 Nov, [facility] [address] 56178- 3777 Oct, Unspecified mood [affective] disorder F39 [facility] [id number] [place] [address] 38033- 2416 Oct, Cough R05 and Diabetes type 2, controlled E11.9 [facility] [id number] [place] [address] 95599- 3313 Oct, Cough R05 [facility] [id number] [place] [address] 89637- 2963 Oct, Abdominal pain R10.9 ; Cough R05 ; PND (post-nasal drip) R09.82 and GERD (gastroesophageal reflux disease) K21.9 [facility] [id number] [place] [address] 93156- 5012 Sep, Unspecified mood [affective] disorder F39 [facility] [address] [address]- 5176 Aug, [facility] [address] [place] [address] 31498- 8969 Aug, [facility] [address] [place] [address] 59651- 9173 Aug, [facility] [id number] [place] [address] 02354- 6589 Aug, [facility] [address] [place] [address] 81278- 9829 Aug, Unspecified mood [affective] disorder F39 [facility] [id number] [place] [address] 48081- 2276 Aug, [facility] [id number] [place] [address] 40167- 7186 Aug, [facility] [id number] [place] [address] 80485- 8448 Jul, Tooth abscess K04.7 [facility] [id number] [place] [address] 04019- 5508 Jul, Diabetes type 2, controlled E11.9 [facility] [id number] [place] [address] 86730- 4281 Jul, [facility] [id number] [place] [address] 56829- 2828 Jul, [facility] [address] [place] [address] 22431- 4078 Jun, [facility] [id number] [place] [address] 05204- 3266 Jun, Diabetes type 2, controlled 250.00 [facility] [address] [place] [address] 98876- 1510 17 Jun, 2015 [facility] [id number] [place] [address] 00780- 6106 15 Jun, 2015 Affective disorder 296.90 [facility] [address] [address]- 7506 Jun, [facility] [address] [address]- 7556 May, Affective disorder 296.90 [facility] [address] [address]- 3266 May, Diabetes mellitus 250.00 [facility] [address] [address]- 9633 Apr, Episodic mood disorder 296.90 [facility] [address] [address]- 6036 Mar, Episodic mood disorder 296.90 [facility] [address] [address]- 5366 February, Unspecified episodic mood disorder 296.90 [facility] [address], [place] [address]- 1891 Jan, [facility] [address], [place] [address]- 2547 Jan, [facility] [address] [address]- 9387 Dec, [facility] [address] [address]- 0768 Dec, [facility] [address] [address]- 2546 Dec, [facility] [address], [place] [address]- 0336 Dec, [facility] [address], [place] [address]- 2546 Dec, [facility] [address] [address]- 4326 Dec, [facility] [place] [facility] [address] [id number] [place] [address]- 5346 Dec, [facility] [place] [facility] [address] [id number] [place] [address]- 7842 Dec, [facility] [place] [facility] [address] [id number] [place] [address]- 7303 Nov, [facility] [place] [facility] [address] [id number] [place] [address]- 1319 Nov, 2014 [facility] [place] [facility] [address] [id number] [place] [address]- 4407 Nov, [facility] [place] [facility] [address] [id number] [place] [address]- 2658 Nov, [facility] [place] [facility] [address] [id number] [place] [address]- 7062 Nov, [facility] [place] [facility] [address] [id number] [place] [address]- 7166 Nov, [facility] [place] [facility] [address] [id number] [place] [address]- 8914 Oct, [facility] [place] [facility] [address] [id number] [place] [address]- 0914 Oct, [facility] [place] [facility] [address] [id number] [place] [address]- 7196 Oct, [facility] [place] [facility] [address] [id number] [place] [address]- 0389 Oct, [facility] [place] [facility] [address] [id number] [place] [address]- 6300 Oct, [facility] [place] [facility] [address] [id number] [place] [address]- 8399 Oct, [facility] [place] [facility] [address] [id number] [place] [address]- 0134 Oct, [facility] [place] [facility] [address] [id number] [address]- 7632 Oct, [facility] [address] [id number] [place] [address]- 5614 Oct, [facility] [place] [facility] [address] [id number] [place] [address]- 8156 Oct, [facility] [place] [facility] [address] [id number] [place] [address]- 6851 Oct, [facility] [place] [facility] [address] [id number] [place] [address]- 8963 Oct, [facility] [place] [facility] [address] [id number] [place] [address]- 4122 Oct, [facility] [place] [facility] [address] [id number] [place] [address]- 7369 Oct, [facility] [place] [facility] [address] [id number] [place] [address]- 1166 Oct, [facility] [place] [facility] [address] [id number] [place] [address]- 3689 Oct, [facility] [place] [facility] [address] [id number] [place] [address]- 5038 Oct, [facility] [place] [facility] [address] [id number] [place] [address]- 4717 Oct, [facility] [place] [facility] [address] [id number] [place] [address]- 4749 Sep, [facility] [place] [facility] [address] [id number] [address]- 5288 Sep, [facility] [place] [facility] [address] [id number] [place] [address]- 5167 Sep, [facility] [place] [facility] [address] [id number] [place] [address]- 0724 Sep, [facility] [place] [facility] [address] [id number] [place] [address]- 8222 Sep, [facility] [place] [facility] [address] [id number] [place] [address]- 7434 Sep, [facility] [place] [facility] [address] [id number] [place] 8557 Aug, [facility] [place] [facility] [address] [id number] [place] 8000 Aug, [facility] [place] [facility] [address] [id number] [place] [address]- 5990 Aug, [facility] [place] [facility] [address] [id number] [place]- 9390 Aug, [facility] [place] [facility] [address] [id number] [place] [address]- 4486 Jul, [facility] [place] [facility] [address] [id number] [place] [address]- 0666 Jul, [facility] [place] [facility] [address] [id number] [place] [address]- 5513 Jul, [facility] [place] [facility] [address] [id number] [place] [address]- 2178 Jul, [facility] [place] [facility] [address] [id number] [place] [address]- 8421 Jul, [facility] [place] [facility] [address] [id number] [place] [address]- 3851 Jul, [facility] [place] [facility] [address] [id number] [place] [address]- 9282 Jul, [facility] [place] [facility] [address] [id number] [place] 2865 Jul, [facility] [place] [facility] [address] [id number] [place] 4180 May, [facility] [place] [facility] [address] [id number] [place] 3859 May, [facility] [place] [facility] [address] [id number] [place] [address]- 9101 Apr, [facility] [place] [facility] [address] [id number] [place] [address]- 9060 Apr, [facility] [place] [facility] [address] [id number] [place] [address]- 6984 Mar, [facility] [place] [facility] [address] [id number] [place] [address]- 7780 Mar, [facility] [place] [facility] [address] [id number] [place] [address]- 6327 Mar, [facility] [place] [facility] [address] [id number] [place] [address]- 6637 Mar, [facility] [place] [facility] [address] [id number] [place] [address]- 2693 Mar, [facility] [place] [facility] [address] [id number] [place] [address]- 8833 Mar, [facility] [place] [facility] [address] [id number] [place] [address]- 1799 Nov, [facility] [place] [facility] [address] [id number] [place] [address]- 3834 Nov, [facility] [place] [facility] [address] [id number] [place] [address]- 4597 Jun, [facility] [place] [facility] [address] [id number] [place] [address]- 0303 May, [facility] [place] [facility] [address] [id number] [place] [address]- 1241 Apr, [facility] [place] [facility] [address] [id number] [place] [address]- 5419 Apr, [facility] [place] [facility] [address] [id number] [place] [address]- 3446 Mar, [facility] [place] [facility] [address] [id number] [place] [address]- 1752 Mar, [facility] [place] [facility] [address] [id number] [place] [address]- 2546 06 Mar, 2013 [facility] [address] [id number] [place] [address]- 0213 February, [facility] [address] [id number] [place] [address]- 4226 Dec, [facility] [address] [id number] [place] [address]- 4996 Nov, [facility] [address] [id number] [place] [address]- 6398 Oct, [facility] [address] [id number] [place] [address]- 6576 Oct, [facility] [address] [id number] [place] [address]- 8366 Oct, [facility] [address] [id number] [place] [address]- 0695 Oct, [facility] [address] [id number] [place] [address]- 7746 Sep, [facility] [address] [id number] [place] [address]- 7963 Sep, [facility] [address] [id number] [place] [address]- 7020 Sep, [facility] [address] [id number] [place] [address] 2549 Sep, [facility] [address] [id number] [place] [address] 2547 Sep, [facility] [address] [id number] [place] [address]- 6829 Sep, [facility] [address] [id number] [place] [address]- 3106 Sep, [facility] [address] [id number] [place] [address]- 9036 Sep, [facility] [id number] [address]- 5976 Sep, [facility] [address], [place] [address]- 2546 Sep, [facility] [address] [address]- 4476 Sep, [facility] [address] [address]- 6916 Aug, [facility] [address] [address]- 3251 Aug, [facility] [address] [place] [address] 46634- 5506 Aug, [facility] [id number] [place] [address] 54381- 9466 Jul, [facility] [address] [place] [address] 89467- 0486 Jul, [facility] [address] [address]- 9703 Dec, [facility] [address] [address]- 1296 Aug, [facility] [id number] [address]- 6616 Mar, IMMUNIZATIONS No Known Immunizations SOCIAL HISTORY Never Assessed REASON FOR VISIT Cough / congestion, pain in nostrils, felt week last week/exhausted, been sick over a week-- H Jose Alejandro WALTERS PLAN OF CARE VITAL SIGNS Height 68 in 2017-06-11 Weight 221.6 lbs 2017-06-11 Temperature 97.9 degrees Fahrenheit 2017-06-11 Respiratory Rate 18 2017-06-11 BMI 33.69 kg/m2 2017-06-11 Blood pressure systolic 132 mmHg 2017-06-11 Blood pressure diastolic 92 mmHg 2017-06-11 MEDICATIONS Medication Instructions Dosage Frequency Start Date End Date Duration Status Ativan 0.5 MG Orally 2 times a day 1 tablet as needed 12h 23 February, 2016 Active Blood Glucose Monitor one touch ultra test blood sugar Jun, Active Levemir FlexTouch 100 UNIT/ML Subcutaneous 2 TIMES A DAY 45 units 12h February, Active PredniSONE 20 MG Orally Once a day 2 tablets 24h Jun, Jun, 05 days Active Zithromax Z-Duncan 250 MG Orally Once a day 2 tablets on the first day, then 1 tablet daily for 4 days 24h Jun, Jun, 5 day(s) Active Tessalon Perles 100 mg Orally Three times a day 1 capsule as needed 8h Jun, Active Daniel Aspirin EC Low Dose 81 MG Orally Once a day 1 tablet 24h Active NovoLog Flexpen 100 UNIT/ML INJECT 10 UNITS SUBCUTANEOUSLY THREE TIMES DAILY WITH MEALS 30 Active Holabird 5-325 MG Orally every 6 hrs 1 tablet as needed 6h May, 28 days Active Indomethacin 50 mg 1 capsule by Oral route 3 times per day Apr, Active Neurontin 100 MG Orally 3 times a day 1 capsule 8h 90 Active Allopurinol 100 MG TAKE ONE TABLET BY MOUTH THREE TIMES DAILY 90 Active RESULTS No Results PROCEDURES No Known [...]
--- OUTSIDE RECORDS SUMMARY | 2018-08-12 11:33 | XMS REPORT | Continuity of Care Document ---
Author Author [facility] Address Unknown Phone Unavailable Allergies Active Description Code Type Severity Reaction Onset Reported/Identified Relationship to Patient Clinical Status Yes glipizide 5 mg tablet Drug Allergy N/A N/A 06/02/2014 Yes NKANo Known Allergies NKA Miscellaneous Allergy Mild N/A 10/31/2016 Medications There is no data. Problems Date Dx Coded Attending Type Code Diagnosis Diagnosed By 04/11/2008 MARIA GRAHAM APRN 724.4 BACK PAIN WITH RADIATION 04/11/2008 MARIA GRAHAM APRN 724.4 BACK PAIN WITH RADIATION 04/11/2008 MARIA GRAHAM APRN 724.4 BACK PAIN WITH RADIATION 04/11/2008 MARIA GRAHAM APRN 724.4 BACK PAIN WITH RADIATION 04/11/2008 724.4 BACK PAIN WITH RADIATION 04/11/2008 724.4 BACK PAIN WITH RADIATION 04/11/2008 724.4 BACK PAIN WITH RADIATION 04/11/2008 724.4 BACK PAIN WITH RADIATION 04/11/2008 724.4 BACK PAIN WITH RADIATION 04/11/2008 724.4 BACK PAIN WITH RADIATION 04/11/2008 MARIA GRAHAM APRN 724.4 BACK PAIN WITH RADIATION 04/11/2008 MARIA GRAHAM APRN 724.4 BACK PAIN WITH RADIATION 04/11/2008 MARIA GRAHAM APRN 724.4 BACK PAIN WITH RADIATION 04/11/2008 MARIA GRAHAM APRN 724.4 BACK PAIN WITH RADIATION 04/11/2008 MARIA GRAHAM APRN 724.4 BACK PAIN WITH RADIATION 04/11/2008 MARIA GRAHAM APRN 724.4 BACK PAIN WITH RADIATION 04/11/2008 MARIA GRAHAM APRN 724.4 BACK PAIN WITH RADIATION 04/11/2008 MARIA GRAHAM APRN 724.4 BACK PAIN WITH RADIATION 04/11/2008 MARIA GRAHAM APRN 724.4 BACK PAIN WITH RADIATION 04/11/2008 [employer] SPECIALIST, MARIA T 724.4 BACK PAIN WITH RADIATION 04/11/2008 GLADYS SANTOS, MARIA T 724.4 BACK PAIN WITH RADIATION 04/11/2008 BROWN RN, GEORGE E 724.4 BACK PAIN WITH RADIATION 04/11/2008 GLADYS AGRAWALN, MARIA T 724.4 BACK PAIN WITH RADIATION 04/11/2008 BROWN RN, GEORGE E 724.4 BACK PAIN WITH RADIATION 04/11/2008 BROWN RN, GEORGE E 724.4 BACK PAIN WITH RADIATION 03/02/2009 MARIA GRAHAM APRN T 274.0 GOUT 03/02/2009 GLADYS AGRAWALNMARIA T 274.0 GOUT 03/02/2009 GLADYS AGRAWALN, MARIA T 274.0 GOUT 03/02/2009 MARIA GRAHAM APRN T 274.0 GOUT 03/02/2009 274.0 GOUT 03/02/2009 274.0 GOUT 03/02/2009 274.0 GOUT 03/02/2009 274.0 GOUT 03/02/2009 274.0 GOUT 03/02/2009 274.0 GOUT 03/02/2009 MARIA GRAHAM APRN T 274.0 GOUT 03/02/2009 MARIA GRAHAM APRN T 274.0 GOUT 03/02/2009 MARIA GRAHAM APRN T 274.0 GOUT 03/02/2009 GLADYS AGRAWALNMARIA T 274.0 GOUT 03/02/2009 MARIA GRAHAM APRN T 274.0 GOUT 03/02/2009 MARIA GRAHAM APRN T 274.0 GOUT 03/02/2009 MARIA GRAHAM APRN T 274.0 GOUT 03/02/2009 MARIA GRAHAM APRN T 274.0 GOUT 03/02/2009 MARIA GRAHAM APRN T 274.0 GOUT 03/02/2009 MARIA GRAHAM APRN T 274.0 GOUT 03/02/2009 MARIA GRAHAM APRN T 274.0 GOUT 03/02/2009 BROWN GOETZ, GEORGE E 274.0 GOUT 03/02/2009 MARIA GRAHAM APRN T 274.0 GOUT 03/02/2009 BROWN RN, GEORGE E 274.0 GOUT 03/02/2009 BROWN RN, GEORGE E 274.0 GOUT 02/04/2010 MARIA GRAHAM APRN 274.9 GOUT UNSPECIFIED 02/04/2010 MARIA GRAHAM APRN T 274.9 GOUT UNSPECIFIED 02/04/2010 MARIA GRAHAM APRN T 274.9 GOUT UNSPECIFIED 02/04/2010 MARIA GRAHAM APRN T 274.9 GOUT UNSPECIFIED 02/04/2010 274.9 GOUT UNSPECIFIED 02/04/2010 274.9 GOUT UNSPECIFIED 02/04/2010 274.9 GOUT UNSPECIFIED 02/04/2010 274.9 GOUT UNSPECIFIED 02/04/2010 274.9 GOUT UNSPECIFIED 02/04/2010 274.9 GOUT UNSPECIFIED 02/04/2010 MARIA GRAHAM APRN T 274.9 GOUT UNSPECIFIED 02/04/2010 GLADYS AGRAWALNMARIA T 274.9 GOUT UNSPECIFIED 02/04/2010 GLADYS AGRAWALNMARIA T 274.9 GOUT UNSPECIFIED 02/04/2010 GLADYS AGRAWALNMARIA T 274.9 GOUT UNSPECIFIED 02/04/2010 GLADYS AGRAWALNMARIA T 274.9 GOUT UNSPECIFIED 02/04/2010 MARIA GRAHAM APRN T 274.9 GOUT UNSPECIFIED 02/04/2010 MARIA GRAHAM APRN T 274.9 GOUT UNSPECIFIED 02/04/2010 MARIA GRAHAM APRN T 274.9 GOUT UNSPECIFIED 02/04/2010 MARIA GRAHAM APRN T 274.9 GOUT UNSPECIFIED 02/04/2010 MARIA GRAHAM APRN T 274.9 GOUT UNSPECIFIED 02/04/2010 MARIA GRAHAM APRN T 274.9 GOUT UNSPECIFIED 02/04/2010 BROWN GOETZ, GEORGE E 274.9 GOUT UNSPECIFIED 02/04/2010 MARIA GRAHAM APRN T 274.9 GOUT UNSPECIFIED 02/04/2010 BROWN RN, GEORGE E 274.9 GOUT UNSPECIFIED 02/04/2010 BROWN GOETZ, GEORGE E 274.9 GOUT UNSPECIFIED 02/22/2010 MARIA GRAHAM APRN T 244.9 HYPOTHYROIDISM 02/22/2010 MARIA GRAHAM APRN T 270.7 HYPERGLYCEMIA 02/22/2010 MARIA GRAHAM APRN T 272.4 HYPERLIPIDEMIA UNSPECIFIED 02/22/2010 MARIA GRAHAM APRN T 244.9 HYPOTHYROIDISM 02/22/2010 MARIA GRAHAM APRN T 270.7 HYPERGLYCEMIA 02/22/2010 MARIA GRAHAM APRN T 272.4 HYPERLIPIDEMIA UNSPECIFIED 02/22/2010 MARIA GRAHAM APRN T 244.9 HYPOTHYROIDISM 02/22/2010 MARIA GRAHAM APRN T 270.7 HYPERGLYCEMIA 02/22/2010 MARIA GRAHAM APRN T 272.4 HYPERLIPIDEMIA UNSPECIFIED 02/22/2010 MARIA GRAHAM APRN T 244.9 HYPOTHYROIDISM 02/22/2010 [employer] SPECIALIST, AMRIA T 270.7 HYPERGLYCEMIA 02/22/2010 [employer] INTERCH[employer] SPECIALIST, MARIA T 272.4 HYPERLIPIDEMIA UNSPECIFIED 02/22/2010 244.9 HYPOTHYROIDISM 02/22/2010 270.7 HYPERGLYCEMIA 02/22/2010 272.4 HYPERLIPIDEMIA UNSPECIFIED 02/22/2010 244.9 HYPOTHYROIDISM 02/22/2010 270.7 HYPERGLYCEMIA 02/22/2010 272.4 HYPERLIPIDEMIA UNSPECIFIED 02/22/2010 244.9 HYPOTHYROIDISM 02/22/2010 270.7 HYPERGLYCEMIA 02/22/2010 272.4 HYPERLIPIDEMIA UNSPECIFIED 02/22/2010 244.9 HYPOTHYROIDISM 02/22/2010 270.7 HYPERGLYCEMIA 02/22/2010 272.4 HYPERLIPIDEMIA UNSPECIFIED 02/22/2010 244.9 HYPOTHYROIDISM 02/22/2010 270.7 HYPERGLYCEMIA 02/22/2010 272.4 HYPERLIPIDEMIA UNSPECIFIED 02/22/2010 244.9 HYPOTHYROIDISM 02/22/2010 270.7 HYPERGLYCEMIA 02/22/2010 272.4 HYPERLIPIDEMIA UNSPECIFIED 02/22/2010 [employer]CH[employer] SPECIALIST, MARIA T 244.9 HYPOTHYROIDISM 02/22/2010 [employer] INTERCHANGE SPECIALIST, MARIA T 270.7 HYPERGLYCEMIA 02/22/2010 [employer] INTERCHANGE SPECIALIST, MARIA T 272.4 HYPERLIPIDEMIA UNSPECIFIED 02/22/2010 [employer] INTERCHANGE SPECIALIST, MARIA T 244.9 HYPOTHYROIDISM 02/22/2010 [employer] INTERCHANGE SPECIALIST, MARIA T 270.7 HYPERGLYCEMIA 02/22/2010 [employer] INTERCHANGE SPECIALIST, MARIA T 272.4 HYPERLIPIDEMIA UNSPECIFIED 02/22/2010 [employer] INTERCHANGE SPECIALIST, MARIA T 244.9 HYPOTHYROIDISM 02/22/2010 [employer] INTERCHANGE SPECIALIST, MARIA T 270.7 HYPERGLYCEMIA 02/22/2010 [employer] INTERCHANGE SPECIALIST, MARIA T 272.4 HYPERLIPIDEMIA UNSPECIFIED 02/22/2010 [employer] INTERCHANGE SPECIALIST, MARIA T 244.9 HYPOTHYROIDISM 02/22/2010 [employer] INTERCHANGE SPECIALIST, MARIA T 270.7 HYPERGLYCEMIA 02/22/2010 [employer] INTERCHANGE SPECIALIST, MARIA T 272.4 HYPERLIPIDEMIA UNSPECIFIED 02/22/2010 [employer] INTERCHANGE SPECIALIST, MARIA T 244.9 HYPOTHYROIDISM 02/22/2010 [employer] INTERCHANGE SPECIALIST, MARIA T 270.7 HYPERGLYCEMIA 02/22/2010 [employer] INTERCHANGE SPECIALIST, MARIA T 272.4 HYPERLIPIDEMIA UNSPECIFIED 02/22/2010 [employer] INTERCHANGE SPECIALIST, MARIA T 244.9 HYPOTHYROIDISM 02/22/2010 [employer] INTERCHANGE SPECIALIST, MARIA T 270.7 HYPERGLYCEMIA 02/22/2010 [employer] INTERCHANGE SPECIALIST, MARIA T 272.4 HYPERLIPIDEMIA UNSPECIFIED 02/22/2010 [employer] INTERCHANGE SPECIALIST, MARIA T 244.9 HYPOTHYROIDISM 02/22/2010 [employer] INTERCHANGE SPECIALIST, MARIA T 270.7 HYPERGLYCEMIA 02/22/2010 [employer] INTERCHANGE SPECIALIST, MARIA T 272.4 HYPERLIPIDEMIA UNSPECIFIED 02/22/2010 [employer] INTERCHANGE SPECIALIST, MARIA T 244.9 HYPOTHYROIDISM 02/22/2010 [employer] INTERCHANGE SPECIALIST, MARIA T 270.7 HYPERGLYCEMIA 02/22/2010 [employer] INTERCHANGE SPECIALIST, MARIA T 272.4 HYPERLIPIDEMIA UNSPECIFIED 02/22/2010 [employer] INTERCHANGE SPECIALIST, MARIA T 244.9 HYPOTHYROIDISM 02/22/2010 [employer] INTERCHANGE SPECIALIST, MARIA T 270.7 HYPERGLYCEMIA 02/22/2010 [employer] INTERCHANGE SPECIALIST, MARIA T 272.4 HYPERLIPIDEMIA UNSPECIFIED 02/22/2010 [employer] INTERCHANGE SPECIALIST, MARIA T 244.9 HYPOTHYROIDISM 02/22/2010 [employer] INTERCHANGE SPECIALIST, MARIA T 270.7 HYPERGLYCEMIA 02/22/2010 [employer] INTERCHANGE SPECIALIST, MARIA T 272.4 HYPERLIPIDEMIA UNSPECIFIED 02/22/2010 [employer] INTERCHANGE SPECIALIST, MARIA T 244.9 HYPOTHYROIDISM 02/22/2010 [employer] INTERCHANGE SPECIALIST, MARIA T 270.7 HYPERGLYCEMIA 02/22/2010 [employer] INTERCHANGE SPECIALIST, MARIA T 272.4 HYPERLIPIDEMIA UNSPECIFIED 02/22/2010 BROWN RN, GEORGE E 244.9 HYPOTHYROIDISM 02/22/2010 BROWN RN, GEORGE E 270.7 HYPERGLYCEMIA 02/22/2010 BROWN RN, GEORGE E 272.4 HYPERLIPIDEMIA UNSPECIFIED 02/22/2010 [employer] INTERCHANGE SPECIALIST, MARIA T 244.9 HYPOTHYROIDISM 02/22/2010 [employer] INTERCHANGE SPECIALIST, MARIA T 270.7 HYPERGLYCEMIA 02/22/2010 [employer] INTERCHANGE SPECIALIST, MARIA T 272.4 HYPERLIPIDEMIA UNSPECIFIED 02/22/2010 BROWN RN, GEORGE E 244.9 HYPOTHYROIDISM 02/22/2010 BROWN RN, GEORGE E 270.7 HYPERGLYCEMIA 02/22/2010 BROWN RN, GEORGE E 272.4 HYPERLIPIDEMIA UNSPECIFIED 02/22/2010 BROWN RN, GEORGE E 244.9 HYPOTHYROIDISM 02/22/2010 BROWN RN, GEORGE E 270.7 HYPERGLYCEMIA 02/22/2010 BROWN RN, GEORGE E 272.4 HYPERLIPIDEMIA UNSPECIFIED 03/16/2010 [employer] SPECIALIST, MARIA T 250.00 DIABETES II CONTROLLED 03/16/2010 [employer] INTERCH[employer] SPECIALIST, MARIA T 250.00 DIABETES II CONTROLLED 03/16/2010 [employer] INTERCHANGE SPECIALIST, MARIA T 250.00 DIABETES II CONTROLLED 03/16/2010 [employer] INTERCH[employer] SPECIALIST, MARIA T 250.00 DIABETES MELLITUS TYPE 2 03/16/2010 250.00 DIABETES MELLITUS TYPE 2 03/16/2010 250.00 DIABETES MELLITUS TYPE 2 03/16/2010 250.00 DIABETES MELLITUS TYPE 2 03/16/2010 250.00 DIABETES MELLITUS TYPE 2 03/16/2010 250.00 DIABETES MELLITUS TYPE 2 03/16/2010 250.00 DIABETES MELLITUS TYPE 2 03/16/2010 [employer]CH[employer] SPECIALIST, MARIA T 250.00 DIABETES MELLITUS TYPE 2 03/16/2010 [employer] INTERCHANGE SPECIALIST, MARIA T 250.00 DIABETES MELLITUS TYPE 2 03/16/2010 [employer] INTERCHANGE SPECIALIST, MARIA T 250.00 DIABETES MELLITUS TYPE 2 03/16/2010 [employer] INTERCHANGE SPECIALIST, MARIA T 250.00 DIABETES MELLITUS TYPE 2 03/16/2010 [employer] INTERCHANGE SPECIALIST, MARIA T 250.00 DIABETES MELLITUS TYPE 2 03/16/2010 [employer] INTERCHANGE SPECIALIST, MARIA T 250.00 DIABETES MELLITUS TYPE 2 03/16/2010 [employer] INTERCHANGE SPECIALIST, MARIA T 250.00 DIABETES MELLITUS TYPE 2 03/16/2010 [employer] INTERCH[employer] SPECIALIST, MARIA T 250.00 DIABETES MELLITUS TYPE 2 03/16/2010 [employer] INTERCHANGE SPECIALIST, MARIA T 250.00 DIABETES MELLITUS TYPE 2 03/16/2010 [employer] INTERCH[employer] SPECIALIST, MARIA T 250.00 DIABETES MELLITUS TYPE 2 03/16/2010 GLADYS AGRAWALN, MARIA T 250.00 DIABETES MELLITUS TYPE 2 03/16/2010 BROWN GOETZ, GEORGE E 250.00 DIABETES MELLITUS TYPE 2 03/16/2010 GLADYS SANTOS, MARIA T 250.00 DIABETES MELLITUS TYPE 2 03/16/2010 BROWN GOETZ, GEORGE E 250.00 DIABETES MELLITUS TYPE 2 03/16/2010 BROWN GOETZ, GEORGE E 250.00 DIABETES MELLITUS TYPE 2 03/27/2010 MARIA GRAHAM APRN 682.9 CELLULITIS AND ABSCESS OF UNSPECIFIED SITES 03/27/2010 MARIA GRAHAM APRN 682.9 CELLULITIS AND ABSCESS OF UNSPECIFIED SITES 03/27/2010 MARIA GRAHAM APRN 682.9 CELLULITIS AND ABSCESS OF UNSPECIFIED SITES 03/27/2010 MARIA GRAHAM APRN 682.9 CELLULITIS AND ABSCESS OF UNSPECIFIED SITES 03/27/2010 682.9 CELLULITIS AND ABSCESS OF UNSPECIFIED SITES 03/27/2010 682.9 CELLULITIS AND ABSCESS OF UNSPECIFIED SITES 03/27/2010 682.9 CELLULITIS AND ABSCESS OF UNSPECIFIED SITES 03/27/2010 682.9 CELLULITIS AND ABSCESS OF UNSPECIFIED SITES 03/27/2010 682.9 CELLULITIS AND ABSCESS OF UNSPECIFIED SITES 03/27/2010 682.9 CELLULITIS AND ABSCESS OF UNSPECIFIED SITES 03/27/2010 MARIA GRAHAM APRN T 682.9 CELLULITIS AND ABSCESS OF UNSPECIFIED SITES 03/27/2010 MARIA GRAHAM APRN T 682.9 CELLULITIS AND ABSCESS OF UNSPECIFIED SITES 03/27/2010 MARIA GRAHAM APRN T 682.9 CELLULITIS AND ABSCESS OF UNSPECIFIED SITES 03/27/2010 MARIA GRAHAM APRN 682.9 CELLULITIS AND ABSCESS OF UNSPECIFIED SITES 03/27/2010 MARIA GRAHAM APRN 682.9 CELLULITIS AND ABSCESS OF UNSPECIFIED SITES 03/27/2010 MARIA GRAHAM APRN T 682.9 CELLULITIS AND ABSCESS OF UNSPECIFIED SITES 03/27/2010 MARIA GRAHAM APRN T 682.9 CELLULITIS AND ABSCESS OF UNSPECIFIED SITES 03/27/2010 MARIA GRAHAM APRN T 682.9 CELLULITIS AND ABSCESS OF UNSPECIFIED SITES 03/27/2010 MARIA GRAHAM APRN 682.9 CELLULITIS AND ABSCESS OF UNSPECIFIED SITES 03/27/2010 MARIA GRAHAM APRN 682.9 CELLULITIS AND ABSCESS OF UNSPECIFIED SITES 03/27/2010 MARIA GRAHAM APRN T 682.9 CELLULITIS AND ABSCESS OF UNSPECIFIED SITES 03/27/2010 BROWN GOETZ, GEORGE E 682.9 CELLULITIS AND ABSCESS OF UNSPECIFIED SITES 03/27/2010 MARIA GRAHAM APRN 682.9 CELLULITIS AND ABSCESS OF UNSPECIFIED SITES 03/27/2010 BROWN RN, GEORGE E 682.9 CELLULITIS AND ABSCESS OF UNSPECIFIED SITES 03/27/2010 BROWN RN, GEORGE E 682.9 CELLULITIS AND ABSCESS OF UNSPECIFIED SITES 08/05/2010 MARIA GRAHAM APRN 374.84 CYSTS OF EYELIDS 08/05/2010 MARIA GRAHAM APRN 461.9 SINUSITIS ACUTE 08/05/2010 MARIA GRAHAM APRN T 789.00 ABDOMINAL PAIN UNSPECIFIED SITE 08/05/2010 MARIA GRAHAM APRN 374.84 CYSTS OF EYELIDS 08/05/2010 MARIA GRAHAM APRN 461.9 SINUSITIS ACUTE 08/05/2010 MARIA GRAHAM APRN T 789.00 ABDOMINAL PAIN UNSPECIFIED SITE 08/05/2010 MARIA GRAHAM APRN 374.84 CYSTS OF EYELIDS 08/05/2010 MARIA GRAHAM APRN 461.9 SINUSITIS ACUTE 08/05/2010 MARIA GRAHAM APRN 789.00 ABDOMINAL PAIN UNSPECIFIED SITE 08/05/2010 MARIA GRAHAM APRN 374.84 CYSTS OF EYELIDS 08/05/2010 MARIA GRAHAM APRN 461.9 SINUSITIS ACUTE 08/05/2010 MARIA GRAHAM APRN 789.00 ABDOMINAL PAIN UNSPECIFIED SITE 08/05/2010 374.84 CYSTS OF EYELIDS 08/05/2010 461.9 SINUSITIS ACUTE 08/05/2010 789.00 ABDOMINAL PAIN UNSPECIFIED SITE 08/05/2010 374.84 CYSTS OF EYELIDS 08/05/2010 461.9 SINUSITIS ACUTE 08/05/2010 789.00 ABDOMINAL PAIN UNSPECIFIED SITE 08/05/2010 374.84 CYSTS OF EYELIDS 08/05/2010 461.9 SINUSITIS ACUTE 08/05/2010 789.00 ABDOMINAL PAIN UNSPECIFIED SITE 08/05/2010 374.84 CYSTS OF EYELIDS 08/05/2010 461.9 SINUSITIS ACUTE 08/05/2010 789.00 ABDOMINAL PAIN UNSPECIFIED SITE 08/05/2010 374.84 CYSTS OF EYELIDS 08/05/2010 461.9 SINUSITIS ACUTE 08/05/2010 789.00 ABDOMINAL PAIN UNSPECIFIED SITE 08/05/2010 374.84 CYSTS OF EYELIDS 08/05/2010 461.9 SINUSITIS ACUTE 08/05/2010 789.00 ABDOMINAL PAIN UNSPECIFIED SITE 08/05/2010 MARIA GRAHAM APRN 374.84 CYSTS OF EYELIDS 08/05/2010 MARIA GRAHAM APRN 461.9 SINUSITIS ACUTE 08/05/2010 MARIA GRAHAM APRN 789.00 ABDOMINAL PAIN UNSPECIFIED SITE 08/05/2010 MARIA GRAHAM APRN 374.84 CYSTS OF EYELIDS 08/05/2010 MARIA GRAHAM APRN 461.9 SINUSITIS ACUTE 08/05/2010 MARIA GRAHAM APRN 789.00 ABDOMINAL PAIN UNSPECIFIED SITE 08/05/2010 MARIA GRAHAM APRN 374.84 CYSTS OF EYELIDS 08/05/2010 MARIA GRAHAM APRN 461.9 SINUSITIS ACUTE 08/05/2010 MARIA GRAHAM APRN 789.00 ABDOMINAL PAIN UNSPECIFIED SITE 08/05/2010 MARIA GRAHAM APRN 374.84 CYSTS OF EYELIDS 08/05/2010 [employer] SPECIALIST, MARIA T 461.9 SINUSITIS ACUTE 08/05/2010 MARIA GRAHAM APRN T 789.00 ABDOMINAL PAIN UNSPECIFIED SITE 08/05/2010 MARIA GRAHAM APRN T 374.84 CYSTS OF EYELIDS 08/05/2010 MARIA GRAHAM APRN T 461.9 SINUSITIS ACUTE 08/05/2010 MARIA GRAHAM APRN T 789.00 ABDOMINAL PAIN UNSPECIFIED SITE 08/05/2010 MARIA GRAHAM APRN T 374.84 CYSTS OF EYELIDS 08/05/2010 MARIA GRAHAM APRN T 461.9 SINUSITIS ACUTE 08/05/2010 MARIA GRAHAM APRN T 789.00 ABDOMINAL PAIN UNSPECIFIED SITE 08/05/2010 MARIA GRAHAM APRN T 374.84 CYSTS OF EYELIDS 08/05/2010 MARIA GRAHAM APRN T 461.9 SINUSITIS ACUTE 08/05/2010 MARIA GRAHAM APRN T 789.00 ABDOMINAL PAIN UNSPECIFIED SITE 08/05/2010 MARIA GRAHAM APRN T 374.84 CYSTS OF EYELIDS 08/05/2010 MARIA GRAHAM APRN 461.9 SINUSITIS ACUTE 08/05/2010 MARIA GRAHAM APRN T 789.00 ABDOMINAL PAIN UNSPECIFIED SITE 08/05/2010 MARIA GRAHAM APRN T 374.84 CYSTS OF EYELIDS 08/05/2010 MARIA GRAHAM APRN T 461.9 SINUSITIS ACUTE 08/05/2010 MARIA GRAHAM APRN T 789.00 ABDOMINAL PAIN UNSPECIFIED SITE 08/05/2010 MARIA GRAHAM APRN T 374.84 CYSTS OF EYELIDS 08/05/2010 MARIA GRAHAM APRN T 461.9 SINUSITIS ACUTE 08/05/2010 MARIA GRAHAM APRN T 789.00 ABDOMINAL PAIN UNSPECIFIED SITE 08/05/2010 MARIA GRAHAM APRN T 374.84 CYSTS OF EYELIDS 08/05/2010 MARIA GRAHAM APRN T 461.9 SINUSITIS ACUTE 08/05/2010 MARIA GRAHAM APRN T 789.00 ABDOMINAL PAIN UNSPECIFIED SITE 08/05/2010 BROWN GOETZ, GEORGE E 374.84 CYSTS OF EYELIDS 08/05/2010 BROWN GOETZ, GEORGE E 461.9 SINUSITIS ACUTE 08/05/2010 BROWN GOETZ, GEORGE E 789.00 ABDOMINAL PAIN UNSPECIFIED SITE 08/05/2010 MARIA GRAHAM APRN T 374.84 CYSTS OF EYELIDS 08/05/2010 MARIA GRAHAM APRN 461.9 SINUSITIS ACUTE 08/05/2010 MARIA GRAHAM APRN 789.00 ABDOMINAL PAIN UNSPECIFIED SITE 08/05/2010 BROWN RN, GEORGE E 374.84 CYSTS OF EYELIDS 08/05/2010 BROWN RN, GEORGE E 461.9 SINUSITIS ACUTE 08/05/2010 BROWN RN, GEORGE E 789.00 ABDOMINAL PAIN UNSPECIFIED SITE 08/05/2010 BROWN RN, GEORGE E 374.84 CYSTS OF EYELIDS 08/05/2010 BROWN RN, GEORGE E 461.9 SINUSITIS ACUTE 08/05/2010 BROWN RN, GEORGE E 789.00 ABDOMINAL PAIN UNSPECIFIED SITE 01/03/2012 MARIA GRAHAM APRN 380.4 IMPACTED CERUMEN 01/03/2012 MARIA GRAHAM APRN 401.1 BENIGN ESSENTIAL HYPERTENSION 01/03/2012 MARIA GRAHAM APRN 380.4 IMPACTED CERUMEN 01/03/2012 MARIA GRAHAM APRN 401.1 BENIGN ESSENTIAL HYPERTENSION 01/03/2012 MARIA GRAHAM APRN 380.4 IMPACTED CERUMEN 01/03/2012 MARIA GRAHAM APRN 401.1 BENIGN ESSENTIAL HYPERTENSION 01/03/2012 MARIA GRAHAM APRN 380.4 IMPACTED CERUMEN 01/03/2012 MARIA GRAHAM APRN 401.1 BENIGN ESSENTIAL HYPERTENSION 01/03/2012 380.4 IMPACTED CERUMEN 01/03/2012 401.1 BENIGN ESSENTIAL HYPERTENSION 01/03/2012 380.4 IMPACTED CERUMEN 01/03/2012 401.1 BENIGN ESSENTIAL HYPERTENSION 01/03/2012 380.4 IMPACTED CERUMEN 01/03/2012 401.1 BENIGN ESSENTIAL HYPERTENSION 01/03/2012 380.4 IMPACTED CERUMEN 01/03/2012 401.1 BENIGN ESSENTIAL HYPERTENSION 01/03/2012 380.4 IMPACTED CERUMEN 01/03/2012 401.1 BENIGN ESSENTIAL HYPERTENSION 01/03/2012 380.4 IMPACTED CERUMEN 01/03/2012 401.1 BENIGN ESSENTIAL HYPERTENSION 01/03/2012 MARIA GRAHAM APRN 380.4 IMPACTED CERUMEN 01/03/2012 MARIA GRAHAM APRN 401.1 BENIGN ESSENTIAL HYPERTENSION 01/03/2012 MARIA GRAHAM APRN 380.4 IMPACTED CERUMEN 01/03/2012 MARIA GRAHAM APRN 401.1 BENIGN ESSENTIAL HYPERTENSION 01/03/2012 [employer] SPECIALIST, MARIA T 380.4 IMPACTED CERUMEN 01/03/2012 [employer] INTERCHANGE SPECIALIST, MARIA T 401.1 BENIGN ESSENTIAL HYPERTENSION 01/03/2012 [employer] INTERCHANGE SPECIALISTMARIA T 380.4 IMPACTED CERUMEN 01/03/2012 [employer] INTERCHANGE SPECIALIST, MARIA T 401.1 BENIGN ESSENTIAL HYPERTENSION 01/03/2012 [employer] INTERCHANGE SPECIALIST, MARIA T 380.4 IMPACTED CERUMEN 01/03/2012 [employer] INTERCHANGE SPECIALIST, MARIA T 401.1 BENIGN ESSENTIAL HYPERTENSION 01/03/2012 [employer] INTERCHANGE SPECIALIST, MARIA T 380.4 IMPACTED CERUMEN 01/03/2012 [employer] INTERCHANGE SPECIALIST, MARIA T 401.1 BENIGN ESSENTIAL HYPERTENSION 01/03/2012 [employer] INTERCHANGE SPECIALIST, MARIA T 380.4 IMPACTED CERUMEN 01/03/2012 [employer] INTERCHANGE SPECIALIST, MARIA T 401.1 BENIGN ESSENTIAL HYPERTENSION 01/03/2012 [employer] INTERCHANGE SPECIALISTMARIA T 380.4 IMPACTED CERUMEN 01/03/2012 [employer] INTERCHANGE SPECIALISTMARIA T 401.1 BENIGN ESSENTIAL HYPERTENSION 01/03/2012 MARIA GRAHAM APRN T 380.4 IMPACTED CERUMEN 01/03/2012 MARIA GRAHAM APRN T 401.1 BENIGN ESSENTIAL HYPERTENSION 01/03/2012 MARIA GRAHAM APRN T 380.4 IMPACTED CERUMEN 01/03/2012 GLADYS ELECTRONIC DATA INTERCHANGE SPECIALISTMARIA T 401.1 BENIGN ESSENTIAL HYPERTENSION 01/03/2012 MARIA GRAHAM APRN T 380.4 IMPACTED CERUMEN 01/03/2012 MARIA GRAHAM APRN T 401.1 BENIGN ESSENTIAL HYPERTENSION 01/03/2012 BROWN GOETZ, GEORGE E 380.4 IMPACTED CERUMEN 01/03/2012 BROWN GOETZ, GEORGE E 401.1 BENIGN ESSENTIAL HYPERTENSION 01/03/2012 MARIA GRAHAM APRN T 380.4 IMPACTED CERUMEN 01/03/2012 MARIA GRAHAM APRN T 401.1 BENIGN ESSENTIAL HYPERTENSION 01/03/2012 BROWN GOETZ, GEORGE E 380.4 IMPACTED CERUMEN 01/03/2012 BROWN GOETZ, GEORGE E 401.1 BENIGN ESSENTIAL HYPERTENSION 01/03/2012 BROWN GOETZ, GEORGE E 380.4 IMPACTED CERUMEN 01/03/2012 BROWN GOETZ, GEORGE E 401.1 BENIGN ESSENTIAL HYPERTENSION 12/01/2012 787.91 diarrhea 12/01/2012 787.91 diarrhea 12/01/2012 787.91 diarrhea 12/01/2012 787.91 diarrhea 12/01/2012 787.91 DIARRHEA 12/01/2012 787.91 DIARRHEA 12/01/2012 [employer] INTERCHANGE SPECIALIST, MARIA T 787.91 DIARRHEA 12/01/2012 [employer] ELECTRON[employer] INTERCHANGE SPECIALIST, MARIA T 787.91 DIARRHEA 12/01/2012 [employer] E[employer] INTERCHANGE SPECIALIST, MARIA T 787.91 DIARRHEA 12/01/2012 GLADYS ELECTRONIC DATA INTERCHANGE SPECIALIST, MARIA T 787.91 DIARRHEA 12/01/2012 [employer]YS ELECTRON[employer] DATA INTERCHANGE SPECIALIST, MARIA T 787.91 DIARRHEA 12/01/2012 GLADYS ELECTRONIC DATA INTERCHANGE SPECIALIST, MARIA T 787.91 DIARRHEA 12/01/2012 [employer] E[employer] INTERCHANGE SPECIALIST, MAIRA T 787.91 DIARRHEA 12/01/2012 [employer]YS ELECTRON[employer] DATA INTERCHANGE SPECIALIST, MARIA T 787.91 DIARRHEA 12/01/2012 [employer]YS ELECTRONIC DATA INTERCHANGE SPECIALIST, MARIA T 787.91 DIARRHEA 12/01/2012 GLADYS ELECTRONIC DATA INTERCHANGE SPECIALIST, MARIA T 787.91 DIARRHEA 12/01/2012 [employer]YS E[employer] DATA INTERCHANGE SPECIALIST, MARIA T 787.91 DIARRHEA 12/01/2012 BROWN GOETZ, GEORGE E 787.91 DIARRHEA 12/01/2012 [employer] E[employer] INTERCHANGE SPECIALIST, MARIA T 787.91 DIARRHEA 12/01/2012 BROWN GOETZ, GEORGE E 787.91 DIARRHEA 12/01/2012 BROWN GOETZ, GEORGE E 787.91 DIARRHEA 12/28/2012 Ot 789.09 ABDOMINAL PAIN, OTHER SPECIFIED SITE 01/01/2013 590.2 KIDNEY STONES 01/01/2013 590.2 KIDNEY STONES 01/01/2013 590.2 KIDNEY STONES 01/01/2013 590.2 KIDNEY STONES 01/01/2013 590.2 KIDNEY STONES 01/01/2013 GLADYS SANTOS, MARIA T 590.2 KIDNEY STONES 01/01/2013 GLADYS SANTOS, MARIA T 590.2 KIDNEY STONES 01/01/2013 GLADYS AGRAWALN, MARIA T 590.2 KIDNEY STONES 01/01/2013 GLADYS AGRAWALN, MARIA T 590.2 KIDNEY STONES 01/01/2013 GLADYS AGRAWALN, MARIA T 590.2 KIDNEY STONES 01/01/2013 [employer] INTERCHANGE SPECIALIST, MARIA T 590.2 KIDNEY STONES 01/01/2013 GLADYS AGRAWALN, MARIA T 590.2 KIDNEY STONES 01/01/2013 GLADYS AGRAWALN, MARIA T 590.2 KIDNEY STONES 01/01/2013 GLADYS AGRAWALN, MARIA T 590.2 KIDNEY STONES 01/01/2013 GLADYS AGRAWALN, MARIA T 590.2 KIDNEY STONES 01/01/2013 GLADYS SANTOS, MARIA T 590.2 KIDNEY STONES 01/01/2013 BROWN GOETZ, GEORGE E 590.2 KIDNEY STONES 01/01/2013 MARIA GRAHAM APRN 590.2 KIDNEY STONES 01/01/2013 BROWN RN, GEORGE E 590.2 KIDNEY STONES 01/01/2013 BROWN GOETZ, GEORGE E 590.2 KIDNEY STONES 02/11/2013 380.10 OTITIS EXTERNA LEFT 02/11/2013 381.81 EUSTACHIAN TUBE DYSFUNCTION 02/11/2013 380.10 OTITIS EXTERNA LEFT 02/11/2013 381.81 EUSTACHIAN TUBE DYSFUNCTION 02/11/2013 380.10 OTITIS EXTERNA LEFT 02/11/2013 381.81 EUSTACHIAN TUBE DYSFUNCTION 02/11/2013 380.10 OTITIS EXTERNA LEFT 02/11/2013 381.81 EUSTACHIAN TUBE DYSFUNCTION 02/11/2013 MARIA GRAHAM APRN T 380.10 OTITIS EXTERNA LEFT 02/11/2013 MARIA GRAHAM APRN T 381.81 EUSTACHIAN TUBE DYSFUNCTION 02/11/2013 MARIA GRAHAM APRN T 380.10 OTITIS EXTERNA LEFT 02/11/2013 MARIA GRAHAM APRN T 381.81 EUSTACHIAN TUBE DYSFUNCTION 02/11/2013 MARIA GRAHAM APRN T 380.10 OTITIS EXTERNA LEFT 02/11/2013 MARIA GRAHAM APRN T 381.81 EUSTACHIAN TUBE DYSFUNCTION 02/11/2013 MARIA GRAHAM APRN T 380.10 OTITIS EXTERNA LEFT 02/11/2013 MARIA GRAHAM APRN T 381.81 EUSTACHIAN TUBE DYSFUNCTION 02/11/2013 MARIA GRAHAM APRN T 380.10 OTITIS EXTERNA LEFT 02/11/2013 MARIA GRAHAM APRN T 381.81 EUSTACHIAN TUBE DYSFUNCTION 02/11/2013 MARIA GRAHAM APRN T 380.10 OTITIS EXTERNA LEFT 02/11/2013 MARIA GRAHAM APRN T 381.81 EUSTACHIAN TUBE DYSFUNCTION 02/11/2013 MARIA GRAHAM APRN T 380.10 OTITIS EXTERNA LEFT 02/11/2013 MARIA GRAHAM APRN T 381.81 EUSTACHIAN TUBE DYSFUNCTION 02/11/2013 MARIA GRAHAM APRN T 380.10 OTITIS EXTERNA LEFT 02/11/2013 MARIA GRAHAM APRN T 381.81 EUSTACHIAN TUBE DYSFUNCTION 02/11/2013 MARIA GRAHAM APRN T 380.10 OTITIS EXTERNA LEFT 02/11/2013 MARIA GRAHAM APRN T 381.81 EUSTACHIAN TUBE DYSFUNCTION 02/11/2013 MARIA GRAHAM APRN 380.10 OTITIS EXTERNA LEFT 02/11/2013 MARIA GRAHAM APRN 381.81 EUSTACHIAN TUBE DYSFUNCTION 02/11/2013 MARIA GRAHAM APRN T 380.10 OTITIS EXTERNA LEFT 02/11/2013 MARIA GRAHAM APRN T 381.81 EUSTACHIAN TUBE DYSFUNCTION 02/11/2013 BROWN GOETZ, GEORGE E 380.10 OTITIS EXTERNA LEFT 02/11/2013 BROWN GOETZ, GEORGE E 381.81 EUSTACHIAN TUBE DYSFUNCTION 02/11/2013 MARIA GRAHAM APRN T 380.10 OTITIS EXTERNA LEFT 02/11/2013 MARIA GRAHAM APRN 381.81 EUSTACHIAN TUBE DYSFUNCTION 02/11/2013 BROWN GOETZ, GEORGE E 380.10 OTITIS EXTERNA LEFT 02/11/2013 BROWN GOETZ, GEORGE E 381.81 EUSTACHIAN TUBE DYSFUNCTION 02/11/2013 BROWN GOETZ, GEORGE E 380.10 OTITIS EXTERNA LEFT 02/11/2013 BROWN GOETZ, GEORGE E 381.81 EUSTACHIAN TUBE DYSFUNCTION 03/10/2013 719.43 PAIN IN JOINT INVOLVING FOREARM 03/10/2013 719.43 PAIN IN JOINT INVOLVING FOREARM 03/10/2013 719.43 PAIN IN JOINT INVOLVING FOREARM 03/10/2013 MARIA GRAHAM APRN 719.43 PAIN IN JOINT INVOLVING FOREARM 03/10/2013 MARIA GRAHAM APRN 719.43 PAIN IN JOINT INVOLVING FOREARM 03/10/2013 MARIA GRAHAM APRN 719.43 PAIN IN JOINT INVOLVING FOREARM 03/10/2013 MARIA GRAHAM APRN 719.43 PAIN IN JOINT INVOLVING FOREARM 03/10/2013 MARIA GRAHAM APRN 719.43 PAIN IN JOINT INVOLVING FOREARM 03/10/2013 MARIA GRAHAM APRN 719.43 PAIN IN JOINT INVOLVING FOREARM 03/10/2013 MARIA GRAHAM APRN 719.43 PAIN IN JOINT INVOLVING FOREARM 03/10/2013 MARIA GRAHAM APRN 719.43 PAIN IN JOINT INVOLVING FOREARM 03/10/2013 MARIA GRAHAM APRN 719.43 PAIN IN JOINT INVOLVING FOREARM 03/10/2013 MARIA GRAHAM APRN 719.43 PAIN IN JOINT INVOLVING FOREARM 03/10/2013 MARIA GRAHAM APRN 719.43 PAIN IN JOINT INVOLVING FOREARM 03/10/2013 BROWN GOETZ, GEORGE E 719.43 PAIN IN JOINT INVOLVING FOREARM 03/10/2013 GLADYS AGRAWALN, MARIA T 719.43 PAIN IN JOINT INVOLVING FOREARM 03/10/2013 BROWN GOETZ, GEORGE E 719.43 PAIN IN JOINT INVOLVING FOREARM 03/10/2013 BROWN GOETZ, GEORGE E 719.43 PAIN IN JOINT INVOLVING FOREARM 07/05/2014 GLADYS AGRAWALN, MARIA T 296.90 MOOD DISORDER 07/05/2014 GLADYS AGRAWALN, MARIA T 296.90 MOOD DISORDER 07/05/2014 GLADYS AGRAWALN, MARIA T 296.90 MOOD DISORDER 07/05/2014 GLADYS ELECTRONIC DATA INTERCHANGE SPECIALIST, MARIA T 296.90 MOOD DISORDER 07/05/2014 GLADYS AGRAWALN, MARIA T 296.90 MOOD DISORDER 07/05/2014 GLADYS AGRAWALN, MARIA T 296.90 MOOD DISORDER 07/05/2014 BROWN GOETZ, GEORGE E 296.90 MOOD DISORDER 07/05/2014 GLADYS SANTOS, MARIA T 296.90 MOOD DISORDER 07/05/2014 BROWN GOETZ, GEORGE E 296.90 MOOD DISORDER 07/05/2014 BROWN GOETZ, GEORGE E 296.90 MOOD DISORDER NOS 08/07/2014 GLADYS SANTOS, MARIA T 251.2 HYPOGLYCEMIA 08/07/2014 GLADYS AGRAWALN, MARIA T 465.9 UPPER RESPIRATORY INFECTION 08/07/2014 GLADYS AGRAWALN, MARIA T 251.2 HYPOGLYCEMIA 08/07/2014 GLADYS AGRAWALN, MARIA T 465.9 UPPER RESPIRATORY INFECTION 08/07/2014 GLADYS AGRAWALN, MARIA T 251.2 HYPOGLYCEMIA 08/07/2014 GLADYS SANTOS, MARIA T 465.9 UPPER RESPIRATORY INFECTION 08/07/2014 GLADYS SANTOS, MARIA T 251.2 HYPOGLYCEMIA 08/07/2014 GLADYS SANTOS MARIA T 465.9 UPPER RESPIRATORY INFECTION 08/07/2014 BROWN GOETZ, GEORGE E 251.2 HYPOGLYCEMIA 08/07/2014 BROWN GOETZ, GEORGE E 465.9 UPPER RESPIRATORY INFECTION 08/07/2014 GLADYS SANTOS, MARIA T 251.2 HYPOGLYCEMIA 08/07/2014 GLADYS SANTOS MARIA T 465.9 UPPER RESPIRATORY INFECTION 08/07/2014 BROWN GOETZ, GEORGE E 251.2 HYPOGLYCEMIA 08/07/2014 BROWN GOETZ, GEORGE E 465.9 UPPER RESPIRATORY INFECTION 08/07/2014 BROWN GOETZ, GEORGE E 251.2 HYPOGLYCEMIA 08/07/2014 BROWN GOETZ, GEORGE E 465.9 UPPER RESPIRATORY INFECTION 08/25/2014 MARIA GRAHAM APRN T 455.6 HEMORRHOIDS NOS 08/25/2014 MARIA GRAHAM APRN 455.6 HEMORRHOIDS NOS 08/25/2014 MARIA GRAHAM APRN 455.6 HEMORRHOIDS NOS 08/25/2014 BROWN GOETZ, GEORGE Pearl 455.6 HEMORRHOIDS NOS 08/25/2014 MARIA GRAHAM APRN 455.6 HEMORRHOIDS NOS 08/25/2014 BROWN GOETZ, GEORGE Pearl 455.6 HEMORRHOIDS NOS 08/25/2014 BROWN GOETZ, GEORGE Pearl 455.6 HEMORRHOIDS NOS 10/31/2014 MARIA GRAHAM APRN 300.02 AN GEN ANXIETY 10/31/2014 MARIA GRAHAM APRN 300.4 MO DYSTHYMIC DISORDER 10/31/2014 BROWN GOETZ, GEORGE Pearl 300.02 AN GEN ANXIETY 10/31/2014 GEORGE DASILVA RN 300.4 MO DYSTHYMIC DISORDER 10/31/2014 BROWN GOETZ, GEORGE Pearl 300.02 AN GEN ANXIETY 10/31/2014 GEORGE DASILVA RN 300.4 MO DYSTHYMIC DISORDER 11/13/2014 MARIA GRAHAM APRN 780.52 INSOMNIA UNSPECIFIED 11/13/2014 GEORGE DASILVA RN 780.52 INSOMNIA UNSPECIFIED 11/13/2014 GEORGE DASILVA RN 780.52 INSOMNIA UNSPECIFIED 11/01/2016 DOROTA STEWART DO Ot E11.9 TYPE 2 DIABETES MELLITUS WITHOUT COMPLIC 11/01/2016 DOROTA STEWART DO Ot G45.9 TRANSIENT CEREBRAL ISCHEMIC ATTACK, [facility] 11/01/2016 DOROTA STEWART DO Ot Z79.84 DETENTION (CURRENT) USE OF ORAL HYPOGLYC Procedures Code [place] [address] MICRO ALBUMIN-IN HOUSE 09/03/2012 43132 A1C (IN-HOUSE) 09/03/2012 37720 ROUTINE VENIPUNCTURE 09/06/2012 49911 CMP 09/06/2012 83628 LIPID PANEL 09/06/2012 65734 URIC ACID 09/06/2012 63561 CBC 09/06/2012 Lucilleo Jennifer Encarnacion 09/13/2012 57823 GLUCOSE FINGER STICK 09/13/2012 09480 A1C (IN-HOUSE) 03/10/2013 87172 URINE DRUG SCREEN (IN-HOUSE ) 03/10/2013 85320 MICRO ALBUMIN-IN HOUSE 03/10/2013 67382 XRAY HAND RIGHT 2 VIEWS 03/10/2013 26356 A1C (IN-HOUSE) 12/02/2013 80629 ROUTINE VENIPUNCTURE 03/24/2014 58160 TSH 03/24/2014 81944 A1C (IN-HOUSE) 03/24/2014 86580 MICRO ALBUMIN-IN HOUSE 03/24/2014 65540 CBC 03/24/2014 99496 MICROALBUMIN 03/24/2014 7148495 GFR CALC (RESULT ONLY) 03/24/2014 02971 CMP 03/24/2014 44997 LIPID PANEL 03/24/2014 42757 URIC ACID 03/24/2014 15693 GLUCOSE FINGER STICK 06/02/2014 85220 A1C (IN-HOUSE) 07/05/2014 38220 MICRO ALBUMIN-IN HOUSE 10/11/2014 44781 A1C (IN-HOUSE) 10/11/2014 84563 MICROALBUMIN 10/11/2014 S0280 PATIENT AND FAMILY SUPPORT 12/22/2014 S0280 HEALTH PROMOTION 02/05/2015 Results Test Result Range Complete blood count (CBC) with automated white blood cell (WBC) differential - 10/31/16 09:15 Blood leukocytes automated count (number/volume) 9.3 10*3/uL 4.3-11.0 Blood erythrocytes automated count (number/volume) 5.56 10*6/uL 4.35-5.85 Venous blood hemoglobin measurement (mass/volume) 16.6 g/dL 13.3-17.7 Blood hematocrit (volume fraction) 48 % 40-54 Automated erythrocyte mean corpuscular volume 85 [foz_us] 80-99 Automated erythrocyte mean corpuscular hemoglobin (mass per erythrocyte) 30 pg 25-34 Automated erythrocyte mean corpuscular hemoglobin concentration measurement ( mass/volume) 35 g/dL 32-36 Automated erythrocyte distribution width ratio 13.8 % 10.0-14.5 Automated blood platelet count (count/volume) 232 10*3/uL 130-400 Automated blood platelet mean volume measurement 9.9 [foz_us] 7.4-10.4 Automated blood neutrophils/100 leukocytes 74 % 42-75 Automated blood lymphocytes/100 leukocytes 20 % 12-44 Blood monocytes/100 leukocytes 5 % 0-12 Automated blood eosinophils/100 leukocytes 1 % 0-10 Automated blood basophils/100 leukocytes 0 % 0-10 Blood neutrophils automated count (number/volume) 6.9 10*3 1.8-7.8 Blood lymphocytes automated count (number/volume) 1.9 10*3 1.0-4.0 Blood monocytes automated count (number/volume) 0.4 10*3 0.0-1.0 Automated eosinophil count 0.1 10*3/uL 0.0-0.3 Automated blood basophil count (count/volume) 0.0 10*3/uL 0.0-0.1 PT panel in platelet poor plasma by coagulation assay - 10/31/16 09:15 Prothrombin time (PT) in platelet poor plasma by coagulation assay 11.7 s 12.2-14.7 INR in platelet poor plasma or blood by coagulation assay 0.9 0.8-1.4 Activated partial thromboplastin time (aPTT) in platelet poor plasma bycoagulation assay - 10/31/16 09:15 Activated partial thromboplastin time (aPTT) in platelet poor plasma bycoagulation assay 26 s 24-35 Fibrin D-dimer FEU measurement in platelet poor plasma (mass/volume) - 09:15 Fibrin D-dimer FEU measurement in platelet poor plasma (mass/volume) 0.45 ug/mL 0.00-0.49 Comprehensive metabolic panel - 10/31/16 09:15 Serum or plasma sodium measurement (moles/volume) 134 mmol/L 135-145 Serum or plasma potassium measurement (moles/volume) 4.5 mmol/L 3.6-5.0 Serum or plasma chloride measurement (moles/volume) 101 mmol/L 98-107 Carbon dioxide 22 mmol/L 21-32 Serum or plasma anion gap determination (moles/volume) 11 mmol/L 5-14 Serum or plasma urea nitrogen measurement (mass/volume) 18 mg/dL 7-18 Serum or plasma creatinine measurement (mass/volume) 1.23 mg/dL 0.60-1.30 Serum or plasma urea nitrogen/creatinine mass ratio 15 NRG Serum or plasma creatinine measurement with calculation of estimated glomerular filtration rate > NRG Serum or plasma glucose measurement (mass/volume) 301 mg/dL 70-105 Serum or plasma calcium measurement (mass/volume) 9.3 mg/dL 8.5-10.1 Serum or plasma total bilirubin measurement (mass/volume) 0.3 mg/dL 0.1-1.0 Serum or plasma alkaline phosphatase measurement (enzymatic activity/volume) 83 U/L 40-136 Serum or plasma aspartate aminotransferase measurement (enzymatic activity/ volume) 24 U/L 5-34 Serum or plasma alanine aminotransferase measurement (enzymatic activity/volume ) 32 U/L 0-55 Serum or plasma protein measurement (mass/volume) 7.0 g/dL 6.4-8.2 Serum or plasma albumin measurement (mass/volume) 3.8 g/dL 3.2-4.5 Serum or plasma troponin i.cardiac measurement (mass/volume) - 10/31/16 09:15 Serum or plasma troponin i.cardiac measurement (mass/volume) < ng/ mL <0.30 Complete urinalysis with reflex to culture - 10/31/16 11:25 Urine color determination YELLOW NRG Urine clarity determination CLEAR NRG Urine pH measurement by test strip 6 5-9 Specific gravity of urine by test strip 1.010 1.016- 1.022 Urine protein assay by test strip, semi-quantitative 2+ NEGATIVE Urine glucose detection by automated test strip 3+ NEGATIVE Erythrocytes detection in urine sediment by light microscopy NEGATIVE NEGATIVE Urine ketones detection by automated test strip NEGATIVE NEGATIVE Urine nitrite detection by test strip NEGATIVE NEGATIVE Urine total bilirubin detection by test strip NEGATIVE NEGATIVE Urine urobilinogen measurement by automated test strip (mass/volume) NORMAL NORMAL Urine leukocyte esterase detection by dipstick NEGATIVE NEGATIVE Automated urine sediment erythrocyte count by microscopy (number/high power field) NONE NRG Automated urine sediment leukocyte count by microscopy (number/high power field ) NONE NRG Bacteria detection in urine sediment by light microscopy NEGATIVE NRG Squamous epithelial cells detection in urine sediment by light microscopy RARE NRG Crystals detection in urine sediment by light microscopy NONE NRG Casts detection in urine sediment by light microscopy NONE NRG Mucus detection in urine sediment by light microscopy NEGATIVE NRG Complete urinalysis with reflex to culture NO NRG Capillary blood glucose measurement by glucometer (mass/volume) - 10/31/16 13: 18 Capillary blood glucose measurement by glucometer (mass/volume) 123 mg/dL 70-110 Capillary blood glucose measurement by glucometer (mass/volume) - 10/31/16 16: 16 Capillary blood glucose measurement by glucometer (mass/volume) 171 mg/dL 70-110 Capillary blood glucose measurement by glucometer (mass/volume) - 10/31/16 20: 28 Capillary blood glucose measurement by glucometer (mass/volume) 132 mg/dL 70-110 Complete blood count (CBC) with automated white blood cell (WBC) differential - 11/01/16 04:16 Blood leukocytes automated count (number/volume) 9.5 10*3/uL 4.3-11.0 Blood erythrocytes automated count (number/volume) 5.48 10*6/uL 4.35-5.85 Venous blood hemoglobin measurement (mass/volume) 16.2 g/dL 13.3-17.7 Blood hematocrit (volume fraction) 47 % 40-54 Automated erythrocyte mean corpuscular volume 86 [foz_us] 80-99 Automated erythrocyte mean corpuscular hemoglobin (mass per erythrocyte) 30 pg 25-34 Automated erythrocyte mean corpuscular hemoglobin concentration measurement ( mass/volume) 34 g/dL 32-36 Automated erythrocyte distribution width ratio 14.0 % 10.0-14.5 Automated blood platelet count (count/volume) 239 10*3/uL 130-400 Automated blood platelet mean volume measurement 9.8 [foz_us] 7.4-10.4 Automated blood neutrophils/100 leukocytes 58 % 42-75 Automated blood lymphocytes/100 leukocytes 34 % 12-44 Blood monocytes/100 leukocytes 6 % 0-12 Automated blood eosinophils/100 leukocytes 2 % 0-10 Automated blood basophils/100 leukocytes 0 % 0-10 Blood neutrophils automated count (number/volume) 5.5 10*3 1.8-7.8 Blood lymphocytes automated count (number/volume) 3.2 10*3 1.0-4.0 Blood monocytes automated count (number/volume) 0.6 10*3 0.0-1.0 Automated eosinophil count 0.2 10*3/uL 0.0-0.3 Automated blood basophil count (count/volume) 0.0 10*3/uL 0.0-0.1 Comprehensive metabolic panel - 11/01/16 04:16 Serum or plasma sodium measurement (moles/volume) 138 mmol/L 135-145 Serum or plasma potassium measurement (moles/volume) 4.5 mmol/L 3.6-5.0 Serum or plasma chloride measurement (moles/volume) 108 mmol/L 98-107 Carbon dioxide 22 mmol/L 21-32 Serum or plasma anion gap determination (moles/volume) 8 mmol/L 5-14 Serum or plasma urea nitrogen measurement (mass/volume) 16 mg/dL 7-18 Serum or plasma creatinine measurement (mass/volume) 1.06 mg/dL 0.60-1.30 Serum or plasma urea nitrogen/creatinine mass ratio 15 NRG Serum or plasma creatinine measurement with calculation of estimated glomerular filtration rate > NRG Serum or plasma glucose measurement (mass/volume) 125 mg/dL 70-105 Serum or plasma calcium measurement (mass/volume) 8.9 mg/dL 8.5-10.1 Serum or plasma total bilirubin measurement (mass/volume) 0.5 mg/dL 0.1-1.0 Serum or plasma alkaline phosphatase measurement (enzymatic activity/volume) 73 U/L 40-136 Serum or plasma aspartate aminotransferase measurement (enzymatic activity/ volume) 19 U/L 5-34 Serum or plasma alanine aminotransferase measurement (enzymatic activity/volume ) 27 U/L 0-55 Serum or plasma protein measurement (mass/volume) 6.2 g/dL 6.4-8.2 Serum or plasma albumin measurement (mass/volume) 3.5 g/dL 3.2-4.5 Capillary blood glucose measurement by glucometer (mass/volume) - 11/01/16 09: 37 Capillary blood glucose measurement by glucometer (mass/volume) 199 mg/dL 70-110 Microalb/Creat Ratio, Randm Ur - 11/13/16 15:25 Creatinine, Urine 40.7 mg/dL Not Estab. Microalbumin, Urine 81.6 ug/mL Not Estab. Microalb/Creat Ratio 200.5 mg/g creat 0.0-30.0 TSH - 10/30/17 08:31 TSH 2.06 mIU/L 0.40-4.50 TESTOSTERONE, TOTAL - 05/06/18 16:16 TESTOSTERONE, TOTAL, MALES (ADULT), [place] 207 ng/dL 250-827 Encounters ACCT No. Visit Date/Time Discharge Status Pt. Type Provider Facility Loc./Unit Complaint [id number] 01/23/2015 17:00:00 01/23/2015 23:59:59 CLS Outpatient GEORGE DASILVA RN [id number] 12/22/2014 11:00:00 12/22/2014 23:59:59 CLS Outpatient GEORGE DASILVA RN [id number] 11/13/2014 08:48:00 11/13/2014 23:59:59 CLS Outpatient MARIA GRAHAM APRN [id number] 10/19/2014 11:30:00 10/19/2014 23:59:59 CLS Outpatient GEORGE DASILVA RN [id number] 10/16/2014 00:00:00 10/16/2014 23:59:59 CLS Outpatient GEORGE DASILVA RN [id number] 10/11/2014 14:43:00 10/11/2014 23:59:59 CLS Outpatient MARIA GRAHAM APRN [id number] 09/06/2014 16:22:00 09/06/2014 23:59:59 CLS Outpatient MARIA GRAHAM APRN [id number] 08/25/2014 16:36:00 08/25/2014 23:59:59 CLS Outpatient MARIA GRAHAM APRN [id number] 08/07/2014 09:42:00 08/07/2014 23:59:59 CLS Outpatient MARIA GRAHAM APRN [id number] 07/05/2014 11:57:00 07/05/2014 23:59:59 CLS Outpatient MARIA GRAHAM APRN [id number] 07/05/2014 11:57:00 07/05/2014 23:59:59 CLS Outpatient MARIA GRAHAM APRN [id number] 06/02/2014 11:57:00 06/02/2014 23:59:59 CLS Outpatient MARIA GRAHAM APRN [id number] 05/03/2014 14:34:00 05/03/2014 23:59:59 CLS Outpatient MARIA GRAHAM APRN [id number] 03/24/2014 08:55:00 03/24/2014 23:59:59 CLS Outpatient MARIA GRAHAM APRN [id number] 03/24/2014 08:55:00 03/24/2014 23:59:59 CLS Outpatient MARIA GRAHAM APRN [id number] 12/02/2013 08:58:00 12/02/2013 23:59:59 CLS Outpatient MARIA GRAHAM APRN [id number] 01/01/2013 09:46:00 01/01/2013 23:59:59 CLS Outpatient [id number] 12/01/2012 09:07:00 12/01/2012 23:59:59 CLS Outpatient [id number] 10/18/2012 12:29:00 10/18/2012 23:59:59 CLS Outpatient MARIA GRAHAM APRN [id number] 09/29/2012 11:01:00 09/29/2012 23:59:59 CLS Outpatient MARIA GRAHAM APRN [id number] 09/13/2012 12:36:00 09/13/2012 23:59:59 CLS Outpatient MARIA GRAHAM APRN [id number] 09/03/2012 16:19:00 09/03/2012 23:59:59 CLS Outpatient MARIA GRAHAM APRN [id number] 05/16/2013 16:27:00 Document Registration [id number] 03/26/2013 14:20:00 Document Registration [id number] 03/10/2013 09:26:00 Document Registration [id number] 02/11/2013 10:27:00 Document Registration [id number] 11/14/2016 12:09:00 Document Registration [id number] 10/31/2016 12:08:00 11/01/2016 14:26:00 DIS Inpatient DOROTA STEWART DO Via [address] [id number] 12/28/2012 14:12:00 Document Registration [id number] 10/30/2017 08:40:00 10/30/2017 23:59:59 CLS Outpatient MARIA [facility]RAHAM [facility]N [facility] [id number] 05/06/2018 15:40:00 Document Registration [id number] 10/30/2017 08:40:00 Document Registration
--- NOTE | 2018-08-12 11:45 | ED Fall/Injury ---
General Chief Complaint: General Problems/Pain Stated Complaint: BACK/NECK INJ Nursing Triage Note: STATES HE WAS AT WORK AND HAD JUST MOPPED A FLOOR WHEN THE DOOR HANDLE CAME OFF HE WAS OPENING THE DOOR THROWING HIM BACK INTO A CORNER WALL HITTING HIS HEAD THEN LANDING ON HIS LEFT SHOULDER/ARM. DENIES LOC. Source: patient Exam Limitations: no limitations History of Present Illness Date Seen by Provider: Aug 12, 2018 Time Seen by Provider: 11:45 Initial Comments To ER per private vehicle with reports of injury at work. 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 Today he was trying to open a door , the door handle fell off causing him to fall backwards and strike the back of his head against the corner of a wall. He reports a headache, mild nausea, midline neck pain, left arm pain as well. He did not lose consciousness. No other injuries. Occurred: just prior to arrival Severity: moderate Injuries/Pain Location: head, neck Associated Symptoms (Fall): Neck Pain Allergies and Home Medications Allergies Coded Allergies: KULDEPEANo Known Allergies (Verified Allergy, Mild, 10/31/16) Home Medications Allopurinol 100 Mg Tablet, 100 MG PO TID, (Reported) Aspirin 81 Mg Tab.chew, 81 MG PO DAILY Prescribed by: DOROTA STEWART on 11/01/16 1244 Gabapentin 100 Mg Capsule, 100 MG PO TID, (Reported) LAST FILLED #90 09-01-16 Hydrocodone Bit/Acetaminophen 1 Each Tablet, 1 TAB PO Q6H PRN for GOUT PAIN, ( Reported) Indomethacin 50 Mg Capsule, 50 MG PO TID PRN for GOUT PAIN, (Reported) Insulin Aspart 100 Unit/1 Ml Susp, 10 UNIT SQ TIDWM Prescribed by: DOROTA STEWART on 11/01/16 1244 Insulin Detemir 100 Unit/1 Ml Insuln.pen, 45 UNITS SC BID, (Reported) Lorazepam 0.5 Mg Tablet, 0.5 MG PO BID PRN for ANXIETY, (Reported) Terbinafine HCl 15 Gm Cream..g., TOP BID PRN for RASH, (Reported) Patient Home Medication List Home Medication List Reviewed: Yes Review of Systems Review of Systems Constitutional: see HPI Eyes: No Symptoms Reported Ears, Nose, Mouth, Throat: no symptoms reported Respiratory: no symptoms reported Genitourinary: no symptoms reported Musculoskeletal: see HPI, neck pain Skin: no symptoms reported Psychiatric/Neurological: No Symptoms Reported Past Bofgtvp-Kckpff-Rxdxhl Hx Patient Social History Alcohol Use: Denies Use Recreational Drug Use: No Smoking Status: Never a Smoker Type Used: Cigarettes Former Smoker, Quit: Oct 31, 1998 Recent Foreign Travel: No Contact w/Someone Who Travel: No Recent Infectious Disease Expo: No Recent Hopitalizations: No Immunizations Up To Date Date of Influenza Vaccine: Jul 05, 2016 Seasonal Allergies Seasonal Allergies: No Past Medical History Surgeries: Yes (club foot) Respiratory: No Cardiac: No Neurological: No Genitourinary: No Gastrointestinal: No Musculoskeletal: Yes (spinal stenosis ) Gout Endocrine: Yes Diabetes, Non-Insulin dep HEENT: No Cancer: No Psychosocial: Yes Depression Integumentary: Yes (rash on neck he states has been there for a long time ) Blood Disorders: No Adverse Reaction/Blood Tranf: No Family Medical History Diabetes mellitus grandfather Hypertension 19 FATHER No Pertinent Family Hx Physical Exam Vital Signs Vital Signs - First Documented 08/12/18 11:20 Pulse 84 Resp 16 B/P (MAP) 139/86 (103) Pulse Ox 97 O2 Delivery Room Air Capillary Refill : Less Than 3 Seconds Height, Weight, BMI Height: 5'8.00" Weight: 225lbs. 1.0oz. 102.483729yb; 33.6 BMI Method:Stated General Appearance: WD/WN, no apparent distress HEENT: PERRL/EOMI, normal ENT inspection, TMs normal, other (small hematoma to the occiput. No depressed palpable skull fracture. No edwards sign. No raccoon eyes.) Neck: non-tender, full range of motion, tender lateral, tender midline Cardiovascular: regular rate, rhythm, no murmur Respiratory: normal breath sounds, no respiratory distress, no accessory muscle use Gastrointestinal: normal bowel sounds, non tender, soft Extremities: normal range of motion, other (left arm has pain, the most tenderness to palpation is over the wrist. He states that he did have some swelling at the wrist initially. No obvious deformity ecchymosis or abrasion to the left arm. States that he has diabetes and so he has chronic paresthesias to both arms.) Neurologic/Psychiatric: alert, normal mood/affect, oriented x 3 Skin: normal color, warm/dry Rigid cervical collar applied by me during exam. [place] Coma Score Best Eye Response: (4) Open Spontaneously Best Verbal Response: (5) Oriented Best Motor Response: (6) Obeys Commands Feng Total: 15 Progress/Results/Core Measures Results/Orders My Orders Orders - SAI JONES APRN Ct Head/Cervical Spine Wo (08/12/18 11:43) Cervical Collar (08/12/18 11:43) Shoulder, Left, 3 Views (08/12/18 11:43) Elbow, Left, 3 Views (08/12/18 11:43) Wrist, Left, 3 Views Or More (08/12/18 11:43) Ketorolac Injection (Toradol Injection) (08/12/18 11:57) Orphenadrine Injection (Norflex Injectio (08/12/18 11:57) Medications Given in ED Current Medications Medications Dose Ordered Sig/Price Route Start Time Stop Time Status Last Admin Dose Admin Ketorolac Tromethamine 60 mg STK-MED ONCE .ROUTE 08/12/18 11:57 08/12/18 11:58 DC 08/12/18 12:03 60 MG Orphenadrine Citrate 60 mg STK-MED ONCE .ROUTE 08/12/18 11:57 08/12/18 11:58 DC 08/12/18 12:03 60 MG Vital Signs/I&O 08/12/18 11:20 Pulse 84 Resp 16 B/P (MAP) 139/86 (103) Pulse Ox 97 O2 Delivery Room Air Blood Pressure Mean: 103 Departure Communication (Admissions) Cervical collar to be removed at this time by me after reviewing CT head and cervical spine report. I do suspect a concussion given the head injury plus headache/nausea. Impression Primary Impression: Fall Qualified Codes: W19.XXXA - Unspecified fall, initial encounter Additional Impressions: Scalp hematoma Qualified Codes: S00.03XA - Contusion of scalp, initial encounter Cervical myofascial strain Qualified Codes: S16.1XXA - Strain of muscle, fascia and tendon at neck level , initial encounter Concussion Qualified Codes: S06.0X0A - Concussion without loss of consciousness, initial encounter Disposition: 01 HOME, SELF-CARE Condition: Stable Departure-Patient Inst. Decision time for Depature: 12:36 Referrals: [facility] (PCP/Family) Primary Care Physician Patient Instructions: Contusion (DC), Preventing Falls Add. Discharge Instructions: 1. Return to ER for any concerns 2. Follow-up with your doctor later this week or next week for recheck. All discharge instructions reviewed with patient and/or family. Voiced understanding. Scripts Naproxen (Naprosyn) 500 Mg Tablet 500 MG PO BID, #14 TAB Prov: SAI JONES APRN 08/12/18 Methocarbamol (Robaxin-750) 750 Mg Tablet 750 MG PO Q6H PRN for PAIN-MODERATE, #14 TAB Prov: SAI JONES APRN 08/12/18 SAI JONES APRN Aug 12, 2018 11:45
[2018-08-12] MEDS ORDERED: KETOROLAC 60 MG/2 ML VIAL ONE (11:57)
[2018-08-12] MEDS ORDERED: ORPHENADRINE 60 MG/2 ML (NORFLEX) AMP ONE (11:57)
--- NOTE | 2018-08-12 12:30 | Diagnostic Imaging Report ---
PROCEDURE: CT head and CT cervical spine without contrast. TECHNIQUE: Multiple contiguous axial images were obtained through the brain and cervical spine without the use of intravenous contrast. Sagittal and coronal reformations through the cervical spine were then performed. INDICATION: Fall and head injury. CT head: COMPARISON: Comparison is made with CT head from 10/31/2016. FINDINGS: Ventricles and sulci are within normal limits. No sulcal effacement or midline shift is identified. No acute intra-axial or extra-axial hemorrhage is detected. Cisterns are patent. Visualized paranasal sinuses are clear. IMPRESSION: No acute intracranial process is detected. CT cervical spine: FINDINGS: There is some straightening of the normal cervical lordotic curvature. There is multilevel degenerative disc disease. No fractures are seen. Prevertebral tissues are within normal limits. Odontoid is intact. IMPRESSION: No acute bony abnormality is detected. Dictated by: Dictated on workstation # [id number]
--- NOTE | 2018-08-12 12:32 | Diagnostic Imaging Report ---
Indication: Left wrist pain post injury. AP, oblique, lateral views of the left wrist are obtained. No fracture or acute bony abnormality seen. Impression: Negative left wrist. Dictated by: Dictated on workstation # [id number]
--- NOTE | 2018-08-12 12:33 | Diagnostic Imaging Report ---
Indication: Fall with left shoulder pain. AP, oblique, and transscapular views of the left shoulder are obtained. No fracture or dislocation is seen. There is no acute bony abnormality. There is minimal degenerative change of glenohumeral joint with inferior osteophyte formation. There is some degenerative change of the AC joint with inferior spurring. Impression: Chronic changes as above with no acute-appearing bony abnormality. Dictated by: Dictated on workstation # [id number]
--- NOTE | 2018-08-12 12:38 | Diagnostic Imaging Report ---
INDICATION: Left elbow pain. AP, oblique, and lateral views of the left elbow are obtained. No definite acute fracture or acute bony abnormality seen. There is no elevation of the posterior fat pad. There is some chronic irregularity of the lateral humeral epicondyle. There is osteophyte formation at the olecranon process of the proximal ulna with chronic-appearing adjacent calcification. IMPRESSION: Chronic changes of left elbow as described above with no acute bony abnormality. Dictated by: Dictated on workstation # [id number]
[2018-08-12] MEDS ORDERED: NAPR-1071 PO (12:42)
[2018-08-12] MEDS ORDERED: METH-313 PO (12:42)
[2018-08-12 12:46] VITALS: BP 139/86
== END 2018-08-12 12:46 | disposition home or self-care (01) ==
LOC: EDUNIT# 11:18 → ER 11:19
DX: S06.0X0A Concussion without loss of consciousness, initial encounter (principal); S16.1XXA Strain of muscle, fascia and tendon at neck level, initial encounter; M10.9 Gout, unspecified; E11.9 Type 2 diabetes mellitus without complications; R40.2141 Coma scale, eyes open, spontaneous, in the field [EMT or ambulance]; R40.2252 Coma scale, best verbal response, oriented, at arrival to emergency department; R40.2362 Coma scale, best motor response, obeys commands, at arrival to emergency department; Z79.82 Long term (current) use of aspirin; Z79.4 Long term (current) use of insulin; Z87.891 Personal history of nicotine dependence; W01.198A Fall on same level from slipping, tripping and stumbling with subsequent striking against other object, initial encounter
CPT/HCPCS: 70450; 72125; 73030; 73080; 73110